=== PATIENT | female | born 1950 | race Hispanic/Latino ===

== ENCOUNTER 2017-11-03 15:07 | Inpatient (IN) | payer MEDICARE ==
--- NOTE | 2017-11-03 16:26 | CT ---
PROCEDURE: CT HEAD WITHOUT CONTRAST. HISTORY: head injury COMPARISON: None available. TECHNIQUE: Axial computed tomography images were obtained through the head/brain without intravenous contrast. Radiation dose: Total exam DLP = 884.2 mGy-cm. This CT exam was performed using one or more of the following dose reduction techniques: Automated exposure control, adjustment of the mA and/or kV according to patient size, and/or use of iterative reconstruction technique. FINDINGS: HEMORRHAGE: No intracranial hemorrhage. BRAIN: Nonspecific hypoattenuation involving the right basal ganglia. Chronic appearing left basal ganglia infarction. No atrophy or chronic microvascular ischemic changes. VENTRICLES: Unremarkable. No hydrocephalus. CALVARIUM: Unremarkable. PARANASAL SINUSES: Unremarkable as visualized. No significant inflammatory changes. MASTOID AIR CELLS: Unremarkable as visualized. No inflammatory changes. OTHER FINDINGS: None. IMPRESSION: Nonspecific hypoattenuation involving the right basal ganglia. Evolving ischemic changes can not be excluded. MRI of the brain can be obtained for further characterization as clinically warranted. Findings conveyed to CHULA Whipple by Dr. Eid at 4:23 p.m. on 11/03/2017.
--- NOTE | 2017-11-03 16:33 | CT ---
PROCEDURE: CT Cervical Spine without contrast HISTORY: Fall, trauma. COMPARISON: None available. TECHNIQUE: Axial computed tomography images were obtained of the cervical spine without the use of intravenous contrast. Coronal and sagittal reformatted images were created and reviewed. Radiation dose: Total exam DLP = go mGy-cm. This CT exam was performed using one or more of the following dose reduction techniques: Automated exposure control, adjustment of the mA and/or kV according to patient size, and/or use of iterative reconstruction technique. FINDINGS: VERTEBRAE: No fracture. Rotary scoliosis. No destructive bony lesion. DISCS/SPINAL CANAL/NEURAL FORAMINA: No significant central canal or neural foraminal stenosis. Discs heights are grossly preserved. Uncovertebral hypertrophy. PARASPINAL SOFT TISSUES: Unremarkable. OTHER FINDINGS: None. IMPRESSION: No acute findings related to/accounting for the clinical presentation.
--- NOTE | 2017-11-03 16:36 | ED PDOC ---
HPI:STROKE - Time Time: 16:34 - Historian Historian: Patient - Chief Complaint Chief Complaint: other (syncope) - Onset Date: 11/03/17 Time: 10:00 Onset: Hours (6) - Timing Timing: Improved - Context Context: Standing (Non-mechanical fall, ? syncope x 2 episodes today. Unkown LOC , pt does not recollect how she fell. Denies headache, chest pain or palpitations.) - Severity of pain Maximum severity:: Moderate Pain Scale:: 1 Severity Current: None Pain Scale:: 1 - Exacerbated by Exacerbated by:: Nothing - TPA Positive for Contraindication: Yes Reason tPA is not being Administered: Unkown onset of sxs NIHSS Stroke Scale - How Severe is the Stroke Level of Consciousness: 0=Alert LOC to Questions: 0=Both comments correct LOC to commands: 0=Obeys both correctly Best Gaze: 0=Normal Visual: 0=No visual loss Facial: 0=Normal Motor Arm - Left: 0=No drift Motor Arm - Right: 0=No drift Motor Leg - Left: 0=No drift Motor Leg - Right: 0=No drift Limb Ataxia: 0=Absent Sensory: 0=Normal Best Language: 0=No aphasia Dysarthia: 0=Normal articulation Extinction & Inattention (Neglect): 0=Normal, no object Score: 0 rTPA Inclusion/Exclusion - Refusal of Treatment Patient Refused Treatment: No - Inclusion Criteria for Altepase Patient is 18 years or Older: Yes The Clinical Diagnosis of Ischemic Stroke That is Causing a Potentially Disabling Neurological Deficit: No Time of Onset is Well Established to be Less Than 270 Minute Before Treatment Would Begin: No Risk/Benefit Discussed With Patient/Family Member Present: No Past Medical History Vital Signs: Last Vital Signs Temp 97.5 F L 11/03/17 15:08 Pulse 94 H 11/03/17 15:08 Resp 16 11/03/17 15:08 BP 149/75 11/03/17 15:08 Pulse Ox 98 11/03/17 15:08 - Medical History PMH: Malignancy (NonHodgkins lymphoma in remission, Myasthenia Gravis) - Family History Family History: States: Unknown Family Hx - Home Medications Home Medications: Ambulatory Orders Medication Instructions Recorded Azithromycin [Z-Eugene] 250 mg PO ASDIR 11/03/17 - Allergies Allergies/Adverse Reactions: Allergies Allergy/AdvReac Type Severity Reaction Status Date / Time Penicillins Allergy RASH Verified 11/03/17 15:12 Review of Systems ROS Statement: Except As Marked, All Systems Reviewed And Found Negative Neurological: Positive for: Other (Syncope) Physical Exam - Reviewed Nursing Documentation Reviewed: Yes Vital Signs Reviewed: Yes - Physical Exam Appears: Positive for: Non-toxic, No Acute Distress Head Exam: Positive for: ATRAUMATIC, NORMAL INSPECTION, NORMOCEPHALIC Skin: Positive for: Normal Color, Warm, DRY Eye Exam: Positive for: EOMI, Normal appearance, PERRL ENT: Positive for: Normal ENT Inspection Neck: Positive for: Normal, Painless ROM Cardiovascular/Chest: Positive for: Regular Rate, Rhythm Respiratory: Positive for: CNT, Normal Breath Sounds Gastrointestinal/Abdominal: Positive for: Normal Exam, Bowel Sounds, Soft Back: Positive for: Normal Inspection Extremity: Positive for: Normal ROM Neurologic/Psych: Positive for: Alert, Oriented. Negative for: Motor/Sensory Deficits - Laboratory Results Result Diagrams: 11/03/17 16:39 11/03/17 16:39 - ECG O2 Sat by Pulse Oximetry: 98 Disposition - Clinical Impression Clinical Impression: Syncope - Patient ED Disposition Is Patient to be Admitted: Yes - Disposition Disposition Time: 18:23 Condition: FAIR Forms: [facility] (Italian) - Pt Status Changed To: Hospital Disposition Of: Observation - POA Present On Arrival: None
--- NOTE | 2017-11-03 16:58 | CT ---
PROCEDURE: CT left hip HISTORY: L hip deformed sofia COMPARISON: None TECHNIQUE: 2.5 mm axial acquisition and display. Coronal and sagittal reconstructions. Dose report (mGy-cm): 716.26. Supplemental 3D volume rendering FINDINGS: There are no osseous abnormalities to suggest fracture. The pelvic ring is intact. Preserved femoral-acetabular relationship. Negative study for protrusio, subluxation or dislocation. Degenerative changes: Left hip, moderate. IMPRESSION: No significant or acute findings to account for/ related to the clinical presentation.
[2017-11-03 17:09] LABS: ALBUMIN 4.3 g/dL (3.5-5.0); ALT/SGPT 30 U/L (9-52); AST/SGOT 44 U/L (14-36); BLOOD UREA NITROGEN 20 mg/dl (7-17); CALCIUM 10.6 mg/dL (8.4-10.2); GFR AFRICAN-AMERICAN > 60; GFR NON-AFRICAN AMERICAN > 60
--- NOTE | 2017-11-03 17:18 | RAD ---
PROCEDURE: Radiographs of the left tibia and fibula. HISTORY: trauma COMPARISON: None available. TECHNIQUE: Frontal and lateral views obtained. FINDINGS: BONES: No fracture or destructive lesion. JOINT SPACES: Unremarkable. OTHER FINDINGS: None. IMPRESSION: Unremarkable radiographs of the left tibia and fibula.
--- NOTE | 2017-11-03 17:19 | RAD ---
PROCEDURE: Radiographs of the Left Shoulder HISTORY: trauma COMPARISON: No prior. FINDINGS: BONES: Generalized osteopenia. . No fracture. JOINTS: . Glenohumeral and acromioclavicular minimal osteoarthritis. SOFT TISSUES: Normal. OTHER FINDINGS: Sternal wires partly visualized IMPRESSION: No fracture or dislocation. Minimal osteoarthrosis.
[2017-11-03 17:21] LABS: BASO % 0.3 % (0.0-2.0); EOS % 0.1 % (0.0-4.0); HEMOGLOBIN 14.4 g/dL (12.0-16.0); LYMPH % 7.7 % (20.0-40.0); MEAN CORPUSCULAR HEMOGLOBIN 22.5 pg (27.0-31.0); MEAN CORPUSCULAR HGB CONC 31.7 g/dL (33.0-37.0); MEAN PLATELET VOLUME 8.4 fl (7.2-11.7); MONO # 0.7 K/uL (0.0-0.8); MONO % 5.4 % (0.0-10.0); NEUT # 11.3 K/uL (1.8-7.0); NEUT % 86.5 % (50.0-75.0); NRBC % 0.3 % (0.0-0.0); PLATELET COUNT 272 K/uL (130-400); RBC 6.38 Mil/uL (3.80-5.20); RED CELL DISTRIBUTION WIDTH 21.2 % (11.5-14.5); WHITE BLOOD COUNT 13.1 K/uL (4.8-10.8)
--- NOTE | 2017-11-03 17:21 | RAD ---
HISTORY: fall COMPARISON: No prior. FINDINGS: LUNGS: No active pulmonary disease. PLEURA: No significant pleural effusion identified, no pneumothorax apparent. CARDIOVASCULAR: Minimal cardiomegaly tortuous thoracic aorta top-normal central pulmonary vasculature OSSEOUS STRUCTURES: Minimal left shoulder arthrosis. Generalized osteopenia midline sternotomy wires. VISUALIZED UPPER ABDOMEN: Normal. OTHER FINDINGS: Right-sided Port-A-Cath tip in caval atrial junction IMPRESSION: Right Port-A-Cath insertion. Mild cardiomegaly. Midline sternotomy. Probable top-normal central pulmonary vasculature. Generalized osteopenia. No gross rib fracture. No pneumothorax.
--- NOTE | 2017-11-03 17:22 | RAD ---
PROCEDURE: Left Ankle Radiographs. HISTORY: trauma COMPARISON: None FINDINGS: BONES: Normal. No fracture. JOINTS: Normal. No osteoarthritis. Ankle mortise maintained. Talar dome intact SOFT TISSUES: Lateral perimalleolar soft tissue swelling OTHER FINDINGS: None. IMPRESSION: Lateral ankle soft tissue swelling. No fracture or dislocation noted
[2017-11-03] MEDS: Sodium Chloride 0.9% 1,000 ML IV SCH (18:42)
--- NOTE | 2017-11-03 18:54 | CP.PCM.HP ---
History of Present Illness - History of Present Illness History of Present Illness: CC: fall HPI: 67 year old female PMH Myasthenia Gravis, NonHodgkins Lymphoma s/p chemo, hx of URI for one week (neg CXR), presents to the ER today after 2 mechanical? falls, each time after attempting to open her cat food. The first episode 911 was called however she refused care, the second time she fell, neighbors responded. Patient states she did not lose consciousness prior to falling, and complains of some acute moderate sharp/aching pain in her knee and ankle. XRs in ER have all been negative. In ER pt found to have WBC 13k, it is unclear if pt has been having urinary symptoms. UA UCx pending. CT head showed possible evolving ischemia and MRI was completed, read pending. Patient did not exhibit any bulbar weakness, or respiratory symptoms/difficulty. No focal neuro deficits , AAOx3. Mild Azotemia. Neuro consulted. HD stable, NAD, observe overnight on telemetry. 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 Snyder PSH: Thymectomy FH: denies SH: denies tobacco, ETOH, IVDU NKDA Vitals Reviewed Temp Pulse Resp BP Pulse Ox 97.5 F L 94 H 16 149/75 98 11/03/17 15:08 11/03/17 15:08 11/03/17 15:08 11/03/17 15:08 11/03/17 18:24 GEN: WDWN, ALERT, COOPERATIVE HEENT: NCAT, PERRL, EOMI HEART: RRR, +S1S2, NO MRG LUNG: CTAB, NO WRR ABD: SOFT, NT, ND, NO HSM, NO MASSES EXT: NORMAL PEDAL PULSES, GOOD CAPILLARY REFILL NEURO: AAOX3, STRENGTH EQUAL BILATERAL UPPER AND LOWER EXTREMITIES SKIN: WARM, DRY PSYCH: NORMAL MOOD, NORMAL AFFECT LABS Most Recent Lab Values WBC 13.1 K/uL (4.8-10.8) H 11/03/17 16:39 RBC 6.38 Mil/uL (3.80-5.20) H 11/03/17 16:39 Hgb 14.4 g/dL (12.0-16.0) 11/03/17 16:39 Hct 45.3 % (34.0-47.0) 11/03/17 16:39 MCV 71.0 fl (81.0-99.0) L 11/03/17 16:39 MCH 22.5 pg (27.0-31.0) L 11/03/17 16:39 MCHC 31.7 g/dL (33.0-37.0) L 11/03/17 16:39 RDW 21.2 % (11.5-14.5) H 11/03/17 16:39 Plt Count 272 K/uL (130-400) 11/03/17 16:39 MPV 8.4 fl (7.2-11.7) 11/03/17 16:39 Neut % (Auto) 86.5 % (50.0-75.0) H 11/03/17 16:39 Lymph % (Auto) 7.7 % (20.0-40.0) L 11/03/17 16:39 [place] % (Auto) 5.4 % (0.0-10.0) 11/03/17 16:39 Eos % (Auto) 0.1 % (0.0-4.0) 11/03/17 16:39 Baso % (Auto) 0.3 % (0.0-2.0) 11/03/17 16:39 Neut # 11.3 K/uL (1.8-7.0) H 11/03/17 16:39 Lymph # 1.0 K/uL (1.0-4.3) 11/03/17 16:39 [place] # 0.7 K/uL (0.0-0.8) 11/03/17 16:39 Eos # 0.0 K/uL (0.0-0.7) 11/03/17 16:39 Baso # 0.0 K/uL (0.0-0.2) 11/03/17 16:39 Sodium 139 mmol/l (132-148) 11/03/17 16:39 Potassium 3.7 MMOL/L (3.6-5.0) 11/03/17 16:39 Chloride 104 mmol/L (98-107) 11/03/17 16:39 Carbon Dioxide 26 mmol/L (22-30) 11/03/17 16:39 Anion Gap 13 (10-20) 11/03/17 16:39 BUN 20 mg/dl (7-17) H 11/03/17 16:39 Creatinine 0.6 mg/dl (0.7-1.2) L 11/03/17 16:39 Est GFR ( Amer) > 60 11/03/17 16:39 Est GFR (Non-Af Amer) > 60 11/03/17 16:39 POC Glucose (mg/dL) 110 mg/dL (65-110) 11/03/17 16:40 Random Glucose 109 mg/dL (65-105) H 11/03/17 16:39 Calcium 10.6 mg/dL (8.4-10.2) H 11/03/17 16:39 Total Bilirubin 0.7 mg/dl (0.2-1.3) 11/03/17 16:39 AST 44 U/L (14-36) H 11/03/17 16:39 ALT 30 U/L (9-52) 11/03/17 16:39 Alkaline Phosphatase 89 U/L (38-126) 11/03/17 16:39 Total Creatine Kinase 262 U/L (30-135) H 11/03/17 16:39 Troponin I 0.0140 ng/mL (0.00-0.120) 11/03/17 16:39 Total Protein 8.8 G/DL (6.3-8.2) H 11/03/17 16:39 Albumin 4.3 g/dL (3.5-5.0) 11/03/17 16:39 Globulin 4.5 gm/dL (2.2-3.9) H 11/03/17 16:39 Albumin/Globulin Ratio 1.0 (1.0-2.1) 11/03/17 16:[address] Head: nonspecific hypoattenuation R basal ganglia CT CSpine: no fx CT Hip: no acute findings XR L Ankle: lateal soft tissue swelling XR L Shoulder: no fracture, minimal osteoarthrosis XR Tib/Fib: unremarkable ASSESSMENT AND PLAN 67 year old female PMH Myasthenia Gravis, NonHodgkins Lymphoma s/p chemo, hx of URI for one week (neg CXR), presents to the ER today after 2 mechanical? falls, each time after attempting to open her cat food. The first episode 911 was called however she refused care, the second time she fell, neighbors responded. Patient states she did not lose consciousness prior to falling, and complains of some acute moderate sharp/aching pain in her knee and ankle. XRs in ER have all been negative. In ER pt found to have WBC 13k, it is unclear if pt has been having urinary symptoms. UA UCx pending. CT head showed possible evolving ischemia and MRI was completed, read pending. Patient did not exhibit any bulbar weakness, or respiratory symptoms/difficulty. No focal neuro deficits, AAOx3. Mild Azotemia. Neuro consulted. HD stable, NAD, observe overnight on telemetry. Near Syncope Fall x2 while trying to open her cat food Orthostatic BP reads pending CT head showed possible evolving area of ischemia MRI read pending Echo tomorrow Carotid dopplers tomorrow repeat lytes monitor for worsening of symptoms Myasthenia Gravis Neuro consult for possible exacerbation? No bulbar weakness or respiratory symptoms Fall all imaging negative supportive care and pain control Leukocytosis pt had 1 week history of URI sx, was completing course of Azithromycin 3 days remaining checking urine as well, unclear if patient is symptomatic Azotemia BUN 20 NS @ 125cc/hr monitor VTE ppx Lovenox Present on Admission - Present on Admission Any Indicators Present on Admission: No Past Patient History - Past Social History Smoking Status: Never Smoked - HEMATOLOGICAL/ONCOLOGICAL Hx Blood Disorders: Yes - MUSCULOSKELETAL/RHEUMATOLOGICAL Hx Musculoskeletal Disorders: Yes Hx Myasthenia Gravis: Yes - PSYCHIATRIC Hx Substance Use: No - SURGICAL HISTORY Hx Surgeries: Yes Other/Comment: Right subclavian port for chemo. Meds Allergies/Adverse Reactions: Allergies Allergy/AdvReac Type Severity Reaction Status Date / Time Penicillins Allergy RASH Verified 11/03/17 15:12 Results - Vital Signs Recent Vital Signs: Last Vital Signs Temp 97.5 F L 11/03/17 15:08 Pulse 94 H 11/03/17 15:08 Resp 16 11/03/17 15:08 BP 149/75 11/03/17 15:08 Pulse Ox 98 11/03/17 16:40 - Labs Result Diagrams: 11/03/17 16:39 11/03/17 16:39 Labs: Laboratory Results - last 24 hr 12/11/03/17 11/03/17 16:39 16:39 16:40 WBC 13.1 H RBC 6.38 H Hgb 14.4 Hct 45.3 MCV 71.0 L MCH 22.5 L MCHC 31.7 L RDW 21.2 H Plt Count 272 MPV 8.4 Neut % (Auto) 86.5 H Lymph % (Auto) 7.7 L [place] % (Auto) 5.4 Eos % (Auto) 0.1 Baso % (Auto) 0.3 Neut # 11.3 H Lymph # 1.0 [place] # 0.7 Eos # 0.0 Baso # 0.0 Sodium 139 Potassium 3.7 Chloride 104 Carbon Dioxide 26 Anion Gap 13 BUN 20 H Creatinine 0.6 L Est GFR ( Amer) > 60 Est GFR (Non-Af Amer) > 60 POC Glucose (mg/dL) 110 Random Glucose 109 H Calcium 10.6 H Total Bilirubin 0.7 AST 44 H ALT 30 Alkaline Phosphatase 89 Total Creatine Kinase 262 H Troponin I 0.0140 Total Protein 8.8 H Albumin 4.3 Globulin 4.5 H Albumin/Globulin Ratio 1.0
[2017-11-03 19:08] LABS: BANDS 4 % (0-2); LYMPHOCYTE 7 % (20-50); MICROCYTOSIS SLIGHT; MONOCYTE 5 % (0-10); NEUTROPHIL 84 % (42-75); PLATELET ESTIMATE NORMAL (NORMAL); TOTAL CELLS COUNTED 100
[2017-11-03 19:09] LABS: HYPOCHROMIC SLIGHT; TOXIC GRANULATION PRESENT
--- NOTE | 2017-11-04 00:40 | CON ---
DATE: REASON FOR THE CONSULTATION: Frequent falls. CHIEF COMPLAINT: Patient was brought in to [facility] after frequent falls, with a history of significant myasthenia gravis and non-Hodgkin lymphoma. From neurological point of view, I was called in to evaluate her for further management. HISTORY OF PRESENT ILLNESS: Ms. Shirley Castillo is a 67-year-old right-handed female, presenting with 2 episodes of weakness and tend to fall on her left side. She also admitted some weakness and heaviness of her left leg from the fall. She did not lose her consciousness. No history of involuntary movements. No similar episodes happened in the past. PAST MEDICAL HISTORY: Significant for non-Hodgkin lymphoma being diagnosed in 2017, now is status post chemotherapy. History of myasthenia gravis, status post thymectomy in the past more than 19 years ago, not being on any medications at present. 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 PERSONAL HISTORY: Denies smoking or alcohol use. ALLERGIES: NO KNOWN ALLERGIES. REVIEW OF SYSTEMS: Twelve-point system being reviewed. From neuro, recurrent fall on her left side. PHYSICAL EXAMINATION: VITAL SIGNS: Her blood pressure is 132/75, mean arterial pressure 93, respiratory rate 16, temperature afebrile. NECK: Supple. No carotid bruit. HEART: Sounds regular. CHEST: Fair air entry. EXTREMITIES: No edema of legs. NEUROLOGIC: Mental status examination: She is awake, alert, oriented to person, place and time. Speech is clear. Naming, repetition, fluency, comprehension, are all within normal. Cranial nerve examination: Visual field intact. Pupils reactive to light. Extraocular movement normal. No nystagmus. No facial sensory deficit. No facial asymmetry. Hearing is normal. Tongue is midline. Good gag. Mild facial asymmetry noted on the left side. Motor examination: The patient has slight drift on her left upper extremity to compare with the right side. The patient also showed evidence of flexor deformity of the third, fourth, and fifth digits on both upper extremities with intrinsic muscle atrophy noted. Deep tendon reflexes, biceps, brachioradialis, triceps are 1+; both the knees are absent; both ankles are absent; plantars are upgoing on her left side. Coordination: [id number] test is intact. WORKUP: CT of the head showed diffusion-weighted image showed positive perfusion and diffusion mismatch at right basal ganglia. BLOOD WORKUP: WBC 13.1, hemoglobin 14.4, hematocrit 45.3, platelet 272. Sodium 139, potassium 5.7, chloride 104, bicarbonate 26, EGFR more than 60, random glucose 109. TSH 1.43, B12 of 369. CONCLUSION: Ms. Shirley Castillo has been presenting with recurrent episode of fall on her left side with weakness. On examination, showed Babinski sign on left side with mild drift on her left consistent with right subcortical dysfunction. The MRI finding consistent with basal ganglia infarct. The patient also had evidence of bilateral distal symmetric sensory motor neuropathy, which is superimposed with her inclusion body myositis which is preexisting condition. RECOMMENDATION: I would like her to continue aspirin and Plavix which was placed on, and continue hydration to keep mean arterial pressure of 100. The patient should keep DVT prophylaxis and physical therapy should be started. The patient will be followed closely with you. Jonathon Hogan MD
[2017-11-04] MEDS: Sodium Chloride 0.9% 1,000 ML IV SCH (05:58)
[2017-11-04 06:17] LABS: BASO % 0.3 % (0.0-2.0); EOS % 0.2 % (0.0-4.0); HEMOGLOBIN 14.4 g/dL (12.0-16.0); LYMPH # 1.4 K/uL (1.0-4.3); LYMPH % 15.9 % (20.0-40.0); MEAN CELL VOLUME 70.7 fl (81.0-99.0); MEAN CORPUSCULAR HGB CONC 32.5 g/dL (33.0-37.0); MEAN PLATELET VOLUME 8.3 fl (7.2-11.7); MONO # 0.7 K/uL (0.0-0.8); MONO % 7.8 % (0.0-10.0); NEUT # 6.6 K/uL (1.8-7.0); NEUT % 75.8 % (50.0-75.0); NRBC % 0.1 % (0.0-0.0); RBC 6.28 Mil/uL (3.80-5.20); RED CELL DISTRIBUTION WIDTH 20.9 % (11.5-14.5); WHITE BLOOD COUNT 8.7 K/uL (4.8-10.8)
[2017-11-04 06:42] LABS: BLOOD UREA NITROGEN 17 mg/dl (7-17); CALCIUM 10.3 mg/dL (8.4-10.2); GFR AFRICAN-AMERICAN > 60; GFR NON-AFRICAN AMERICAN > 60
--- NOTE | 2017-11-04 07:14 | MRI ---
PROCEDURE: MRI BRAIN WITHOUT CONTRAST HISTORY: syncope, ischemic changes on CT COMPARISON: None. TECHNIQUE: Multiplanar, multisequence MR images of the brain were obtained without intravenous contrast enhancement. FINDINGS: HEMORRHAGE: None DWI: Restricted diffusion is seen the majority of the right basal ganglia compatible with an acute or subacute brain infarction. A limited portion of the inferior basal ganglia appears spared. There is no significant mass effect appreciated though there may be some minimal effacement of the right lateral ventricle body. No additional acute or subacute ischemic changes are appreciated. A chronic lacune is seen at the left basal ganglia. BRAIN PARENCHYMA: Diffuse cerebral atrophy and chronic microangiopathy are identified once again. The midline brain anatomy is unremarkable diffusely. There is no suspicious extra-axial fluid collection identified. Exclusive of the acute or subacute infarction noted above, the corticomedullary differentiation remains sharp. VENTRICLES: No hydrocephalus identified. CRANIUM: Limited dephasing is seen caused by a ferromagnetic anteriorly at the anterior and mid left temporal scalp obscuring the calvarium somewhat of the left church bone. No suspicious densities appreciated in the CT examination the same location however there is no evidence of brian hole throughout the skull the current MRI or the prior CT exam. ORBITS: Grossly unremarkable. PARANASAL SINUSES/MASTOIDS: Clear VASCULAR SYSTEM: Skull base flow voids intact. OTHER FINDINGS: Incidental note is made abnormal soft tissue measuring 3.5 x 3.0 cm (transverse by anteroposterior dimensions) at the left occipital scalp inferiorly/ upper neck suspicious for potential abscess or even mass. IMPRESSION: 1. An acute subacute infarct affects the right basal ganglia with limited sparing of the inferior margins of the basal ganglia. No generalized mass effect although limited effacement of the body of the right lateral ventricle may be present. 2. Chronic lacune left basal ganglia again evident. 3. No definite intracranial hemorrhage. 4. Abnormal signal changes at the left occipital/upper neck region measuring 3.5 cm greatest dimension suspicious for potential abscess or even mass. Follow-up neck CT with and without contrast is recommended
[2017-11-04] MEDS ORDERED: Enoxaparin 40 mg Syringe SC SCH (09:00)
[2017-11-04 09:12] VITALS: RESP 20
--- NOTE | 2017-11-04 09:19 | US ---
PROCEDURE: Duplex ultrasound of the carotid and vertebral arteries. HISTORY: near syncope COMPARISON: None available. TECHNIQUE: Grayscale and duplex Doppler evaluation of the cervical carotid and vertebral arteries were performed. The common carotid, carotid bifurcations and cervical ICA and proximal ECA were evaluated. The vertebral arteries were evaluated for gross patency and direction. FINDINGS: RIGHT CAROTID ARTERIES: Common Carotid Artery: Normal. Maximal flow velocity of 101.1 cm/s. Carotid Bifurcation: Focal calcified plaque in the vicinity of the and bifurcation. Internal Carotid Artery:Heterogeneous plaque formation. Maximal flow velocity of 96.3 cm/s. External Carotid Artery (proximal branches): Normal. Maximal flow velocity of 114.0 cm/s. ICA/CCA Ratio: 1.0 LEFT CAROTID ARTERIES: Common Carotid Artery: Intimal thickening is present Maximal flow velocity of 143.1 cm/s. Carotid Bifurcation: Plaque identified calcified bifurcation extending into the left ECA and ICA Internal Carotid Artery:Heterogeneous plaque formation. Maximal flow velocity of 84.9 cm/s. External Carotid Artery (proximal branches): Normal. Maximal flow velocity of 94.3 cm/s. ICA/CCA Ratio: 0.8 VERTEBRAL ARTERIES: Right Vertebral Artery: Patent. Antegrade flow. Left Vertebral Artery: Patent. Antegrade flow. OTHER FINDINGS: None. IMPRESSION: Right ICA degree of stenosis: Less than 50% Left ICA degree of stenosis: Less than 50% Reference Internal Carotid Artery (ICA) Peak Systolic Velocity (PSV) for above: 1. Less than 50% stenosis less than 125 cm/s peak systolic velocity 2. 50-69% stenosis 125-230cm/s peak systolic velocity 3. Greater than 70% but less than near occlusion greater than 230 cm/s peak systolic velocity
--- NOTE | 2017-11-04 09:25 | CARD ---
APPROVED REPORT EKG Measurement Heart [id number] <Conclusion> Normal sinus rhythm Right atrial enlargement Nonspecific ST abnormality Abnormal ECG
[2017-11-04 11:11] LABS: HDL CHOLESTEROL 50 MG/DL (30-70)
[2017-11-04 11:21] LABS: LDL CHOLESTEROL 167 mg/dL (0-129)
[2017-11-04 12:34] LABS: SQUAMOUS EPITHIAL 2 /hpf (0-5); URINE BILIRUBIN NEGATIVE (NEGATIVE); URINE BLOOD NEGATIVE (NEGATIVE); URINE CLARITY CLOUDY (Clear); URINE COLOR YELLOW (YELLOW); URINE GLUCOSE (UA) NEG (Normal); URINE LEUKOCYTE ESTERASE SMALL Leu/uL (Negative); URINE NITRATE NEGATIVE (NEGATIVE); URINE PROTEIN 100 mg/dL (NEGATIVE); URINE UROBILINOGEN 0.2-1.0 mg/dL (0.2-1.0)
--- NOTE | 2017-11-04 12:57 | CARD ---
APPROVED REPORT EXAM: Two-dimensional and M-mode echocardiogram with Doppler and color Doppler. Other Information Quality : AverageRhythm : NSR INDICATION Syncope 2D DIMENSIONS IVSd1.16 (0.7-1.1cm)LVDd3.42 (3.9-5.9cm) LVOT Diameter2.90 (1.8-2.4cm)PWd1.34 (0.7-1.1cm) IVSs1.32 (0.8-1.2cm)LVDs2.24 (2.5-4.0cm) FS (%) 34.7 %PWs1.35 (0.8-1.2cm) M-Mode DIMENSIONS Left Atrium (MM)3.97 (2.5-4.0cm)IVSd1.65 (0.7-1.1cm) Aortic Root3.24 (2.2-3.7cm)LVDd3.18 (4.0-5.6cm) Aortic Cusp Exc.1.99 (1.5-2.0cm)PWd1.29 (0.7-1.1cm) IVSs1.65 cmFS (%) 31 % LVDs2.18 (2.0-3.8cm)PWs1.69 cm Mitral Valve MV E Vaepkmcb29.5cm/sMV DECEL [id number] A Kzkoaqgz90.5cm/s MV NSU235mdV/A ratio0.8MVA (PHT)2.02cm2 TDI E/Lateral E'0.0E/Medial E'0.0 LEFT VENTRICLE The left ventricle is normal size. The left ventricular function is normal. The left ventricular ejection fraction is within the normal range. The Ejection Fraction is 60-65%. There is normal LV segmental wall motion. The left ventricular diastolic function is normal. RIGHT VENTRICLE The right ventricle is normal size. The right ventricular systolic function is normal. ATRIA The left atrium size is normal. The right atrium size is normal. AORTIC VALVE The aortic valve is normal in structure. No aortic regurgitation is present. There is no aortic valvular stenosis. MITRAL VALVE The mitral valve is normal in structure. There is no mitral valve stenosis. There is no mitral valve regurgitation noted. TRICUSPID VALVE The tricuspid valve is normal in structure. There is no tricuspid valve regurgitation noted. PULMONIC VALVE The pulmonary valve is normal in structure. There is no pulmonic valvular regurgitation. GREAT VESSELS The aortic root is normal in size. The IVC is normal in size and collapses >50% with inspiration. PERICARDIAL EFFUSION The pericardium appears normal. <Conclusion> The left ventricle is normal size. The left ventricular function is normal. The left ventricular ejection fraction is within the normal range. The Ejection Fraction is 60-65%.
[2017-11-04] MEDS ORDERED: Sodium Chloride 0.9% 1,000 ML IV SCH (13:00)
[2017-11-04] MEDS ORDERED: Sodium Chloride 0.9% 50 ML IV ONE (13:02)
[2017-11-04] MEDS ORDERED: Iodixanol 320 MG/ML 100 ML BOTTLE IV ONE (13:02)
--- NOTE | 2017-11-04 15:20 | CT ---
PROCEDURE: CT Angiography of the neck and brain dated 11/04/2017. HISTORY: CVA COMPARISON: Correlation made with carotid Doppler and MRI brain both dated 11/03/2017. TECHNIQUE: Contiguous helical/transaxial images of the neck were obtained from the level of the skull-base to the superior mediastinum in the arteriographic phase of enhancement. Coronal and sagittal reformats or also generated. IV contrast dose: 99 cc Visipaque 320 Radiation Dose - DLP: 574.04 mGy-cm This CT exam was performed using one or more of the following dose reduction techniques: Automated exposure control, adjustment of the mA and/or kV according to patient size, and/or use of iterative reconstruction technique. . FINDINGS: CAROTID ARTERIES: Minor partially calcified atherosclerotic plaque seen along the carotid bifurcation with no evidence to suggest significant stenosis. . Marked tortuosity right distal internal carotid artery just before it enters the right petrous canal. Minor partially calcified atherosclerotic plaque seen along both carotid siphons. The VERTEBRAL ARTERIES: The vertebral arteries are patent throughout. Right vertebral artery is larger in caliber/ more dominant than the left. . Basilar artery is patent. There is hypoplasia of the left P1 segment with carotid origin of the left posterior cerebral artery. OTHER FINDINGS: Elliptical shaped soft tissue mass density left suboccipital scalp with surrounding mild subcutaneous infiltration; of uncertain etiology rule out post inflammatory/infectious etiologies. Mass lesion would be less likely though not completely excluded. Multiple bilateral cervical lymph nodes more numerous in the left posterior cervical spaces near the adjacent soft tissue. Minor calcified plaque seen along the aortic arch. Three-vessel arch however the origins of the great vessels are widely patent. IMPRESSION: No significant stenosis of the internal carotid arteries despite some very minor partially calcified atherosclerotic plaque at both bifurcations. Fairly significant tortuosity distal right internal carotid artery as above. Elliptical shaped soft tissue mass density left suboccipital scalp with surrounding mild subcutaneous infiltration; of uncertain etiology rule out post inflammatory/infectious etiologies. Mass lesion would be less likely though not completely excluded. Multiple bilateral cervical lymph nodes more numerous in the left posterior cervical spaces near the adjacent soft tissue
--- NOTE | 2017-11-04 16:32 | CP.PCM.DIS ---
Provider - Provider Date of Admission: 11/04/17 10:57 Attending physician: Pau Hubbard DO Time Spent in preparation of Discharge (in minutes): 30 Diagnosis - Discharge Diagnosis (1) CVA (cerebral vascular accident) Status: Acute Hospital Course - Lab Results Lab Results: Most Recent Lab Values WBC 8.7 K/uL (4.8-10.8) 11/04/17 04:40 RBC 6.28 Mil/uL (3.80-5.20) H 11/04/17 04:40 Hgb 14.4 g/dL (12.0-16.0) 11/04/17 04:40 Hct 44.4 % (34.0-47.0) 11/04/17 04:40 MCV 70.7 fl (81.0-99.0) L 11/04/17 04:40 MCH 23.0 pg (27.0-31.0) L 11/04/17 04:40 MCHC 32.5 g/dL (33.0-37.0) L 11/04/17 04:40 RDW 20.9 % (11.5-14.5) H 11/04/17 04:40 Plt Count 262 K/uL (130-400) 11/04/17 04:40 MPV 8.3 fl (7.2-11.7) 11/04/17 04:40 Neut % (Auto) 75.8 % (50.0-75.0) H 11/04/17 04:40 Lymph % (Auto) 15.9 % (20.0-40.0) L 11/04/17 04:40 [place] % (Auto) 7.8 % (0.0-10.0) 11/04/17 04:40 Eos % (Auto) 0.2 % (0.0-4.0) 11/04/17 04:40 Baso % (Auto) 0.3 % (0.0-2.0) 11/04/17 04:40 Neut # 6.6 K/uL (1.8-7.0) 11/04/17 04:40 Lymph # 1.4 K/uL (1.0-4.3) 11/04/17 04:40 [place] # 0.7 K/uL (0.0-0.8) 11/04/17 04:40 Eos # 0.0 K/uL (0.0-0.7) 11/04/17 04:40 Baso # 0.0 K/uL (0.0-0.2) 11/04/17 04:40 Neutrophils % (Manual) 84 % (42-75) H 11/03/17 16:39 Band Neutrophils % 4 % (0-2) H 11/03/17 16:39 Lymphocytes % (Manual) 7 % (20-50) L 11/03/17 16:39 Monocytes % (Manual) 5 % (0-10) 11/03/17 16:39 Toxic Granulation Present 11/03/17 16:39 Platelet Estimate Normal (NORMAL) 11/03/17 16:39 Hypochromasia (manual) Slight 11/03/17 16:39 Microcytosis (manual) Slight 11/03/17 16:39 ESR 51 mm/hr (0-30) H 11/03/17 19:40 Sodium 140 mmol/l (132-148) 11/04/17 04:40 Potassium 3.6 MMOL/L (3.6-5.0) 11/04/17 04:40 Chloride 105 mmol/L (98-107) 11/04/17 04:40 Carbon Dioxide 26 mmol/L (22-30) 11/04/17 04:40 Anion Gap 13 (10-20) 11/04/17 04:40 BUN 17 mg/dl (7-17) 11/04/17 04:40 Creatinine 0.6 mg/dl (0.7-1.2) L 11/04/17 04:40 Est GFR ( Amer) > 60 11/04/17 04:40 Est GFR (Non-Af Amer) > 60 11/04/17 04:40 POC Glucose (mg/dL) 110 mg/dL (65-110) 11/03/17 16:40 Random Glucose 117 mg/dL (65-105) H 11/04/17 04:40 Hemoglobin A1c 6.6 % (4.2-6.5) H 11/03/17 19:40 Calcium 10.3 mg/dL (8.4-10.2) H 11/04/17 04:40 Total Bilirubin 0.7 mg/dl (0.2-1.3) 11/03/17 16:39 AST 44 U/L (14-36) H 11/03/17 16:39 ALT 30 U/L (9-52) 11/03/17 16:39 Alkaline Phosphatase 89 U/L (38-126) 11/03/17 16:39 Total Creatine Kinase 262 U/L (30-135) H 11/03/17 16:39 Troponin I 0.0140 ng/mL (0.00-0.120) 11/03/17 16:39 Total Protein 8.8 G/DL (6.3-8.2) H 11/03/17 16:39 Albumin 4.3 g/dL (3.5-5.0) 11/03/17 16:39 Globulin 4.5 gm/dL (2.2-3.9) H 11/03/17 16:39 Albumin/Globulin Ratio 1.0 (1.0-2.1) 11/03/17 16:39 Triglycerides 86 mg/DL (0-149) 11/04/17 10:57 Cholesterol 263 mg/dL (0-199) H 11/04/17 10:57 LDL Cholesterol Direct 167 mg/dL (0-129) H 11/04/17 10:57 HDL Cholesterol 50 MG/DL (30-70) 11/04/17 10:57 Vitamin B12 369 pg/mL (239-931) 11/03/17 19:40 TSH 3rd Generation 1.43 mIU/ML (0.46-4.68) 11/03/17 19:40 Urine Color Yellow (YELLOW) 11/04/17 10:00 Urine Clarity Cloudy (Clear) 11/04/17 10:00 Urine pH 5.0 (5.0-8.0) 11/04/17 10:00 Ur Specific [place] 1.023 (1.003-1.030) 11/04/17 10:00 Urine Protein 100 mg/dL (NEGATIVE) 11/04/17 10:00 Urine Glucose (UA) Neg mg/dL (Normal) 11/04/17 10:00 Urine Ketones 20 mg/dL (NEGATIVE) 11/04/17 10:00 Urine Blood Negative (NEGATIVE) 11/04/17 10:00 Urine Nitrate Negative (NEGATIVE) 11/04/17 10:00 Urine Bilirubin Negative (NEGATIVE) 11/04/17 10:00 Urine Urobilinogen 0.2-1.0 mg/dL (0.2-1.0) 11/04/17 10:00 Ur Leukocyte Esterase Small [place]/uL (Negative) 11/04/17 10:00 Urine RBC (Auto) 4 /hpf (0-3) H 11/04/17 10:00 Urine Microscopic WBC 41 /hpf (0-5) H 11/04/17 10:00 Ur Squamous Epith Cells 2 /hpf (0-5) 11/04/17 10:00 Hyaline Casts 6-10 /hpf (0-2) H 11/04/17 10:00 - Hospital Course Hospital Course: 67 year old female PMH Myasthenia Gravis, NonHodgkins Lymphoma s/p chemo, hx of URI for one week (neg CXR), presents to the ER today after 2 mechanical? falls, each time after attempting to open her cat food. The first episode 911 was called however she refused care, the second time she fell, neighbors responded. Patient states she did not lose consciousness prior to falling, and complains of some acute moderate sharp/aching pain in her knee and ankle. XRs in ER have all been negative. In ER pt found to have WBC 13k, it is unclear if pt has been having urinary symptoms. UA UCx pending. CT head showed possible evolving ischemia and MRI was completed, read pending. Patient did not exhibit any bulbar weakness, or respiratory symptoms/difficulty. No focal neuro deficits, AAOx3. Mild Azotemia. Neuro consulted. HD stable, NAD, observe overnight on telemetry. MRI demonstrated basal ganglia acute/subacute infarct. Pt seen by PT and recommends physical therapy. Follow up ucx and Dr. Hogan for consult in TCU. Pt stable for discharge for further rehab needs. To note: incidental soft tissue mass/density noted on CT and MRI. Physical examination did not show any tenderness, swelling, erythema, or palpable mass. May follow up as outpatient with Dermatology. CVA Basal ganglia Near Syncope Fall x2 while trying to open her cat food Neuro consult Dr. Hogan appreciated and followed. ASA, PLAVIX, STATIN Orthostatic BP reads pending CT head showed possible evolving area of ischemia MRI read +basal ganglia acute/subacute CVA Echo complete Carotid dopplers complete repeat lytes monitor for worsening of symptoms Myasthenia Gravis Neuro consult for possible exacerbation? No bulbar weakness or respiratory symptoms Fall all imaging negative supportive care and pain control Leukocytosis with bands 4 resolved today pt had 1 week history of URI sx, was completing course of Azithromycin 3 days remaining checking urine as well, unclear if patient is symptomatic Azotemia BUN 20 NS @ 125cc/hr monitor UTI Macrobid BID for 6 more days STOP NOV 10, 2017. UCx pending VTE ppx Lovenox Discharge Exam - Head Exam Head Exam: ATRAUMATIC, NORMAL INSPECTION, NORMOCEPHALIC - Eye Exam Eye Exam: EOMI, Normal appearance, PERRL Pupil Exam: NORMAL ACCOMODATION - ENT Exam ENT Exam: Mucous Membranes Moist, Normal Oropharynx - Neck Exam Neck exam: Full Rom, Normal Inspection - Respiratory Exam Respiratory Exam: Clear to PA & Lateral, NORMAL BREATHING PATTERN - Cardiovascular Exam Cardiovascular Exam: RRR, +S1, +S2 - GI/Abdominal Exam GI & Abdominal Exam: Normal Bowel Sounds. absent: Organomegaly, Tenderness - Extremities Exam Extremities exam: normal capillary refill, pedal pulses present - Back Exam Back exam: absent: CVA tenderness (L), CVA tenderness (R) - Neurological Exam Neurological exam: Alert, Oriented x3 - Psychiatric Exam Psychiatric exam: Normal Affect, Normal Mood - Skin Skin Exam: Dry, Normal Color, Warm Discharge Plan - Follow Up Plan Condition: FAIR Disposition: TRANSF TO SNF
[2017-11-04 19:38] VITALS: BP 146/84; PULSE 88; TEMP 98.1; O2SAT 93
--- NOTE | 2017-11-04 23:38 | PN ---
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 PHYSICAL EXAMINATION: VITAL SIGNS: Blood pressure 146/84, mean arterial pressure 104, respiratory rate 16, temperature afebrile. NECK: Supple. No carotid bruit. HEART: Heart sounds regular. CHEST: Fair air entry. EXTREMITIES: No edema of legs. NEUROLOGIC: The patient has mild left hemiparesis, mild dysmetria on the left side noted. Deep tendon reflexes are absent throughout. Plantars are upgoing on her left side. WORKUP: Carotid Doppler sonogram shows stenosis less than 50%. CT angiogram was reviewed. No significant stenosis. The patient is cleared from neuro to have acute rehabilitation to improve her weakness. The patient is advised to continue antiplatelets, statin and angiotensin receptor blockers as recommended. Jonathon Hogan MD
== END 2017-11-04 21:20 | DRG 65 ==
LOC: H.ER 15:07 → H.ERHOLD 18:21 → H.TEL 21:34 → OBSVTOIN 11-04 10:57
PROVIDERS: ADMIT Student in an Organized Health Care Education/Training Program; ATTEND Student in an Organized Health Care Education/Training Program
DX: I63.9 Cerebral infarction, unspecified (principal); G81.94 Hemiplegia, unspecified affecting left nondominant side; G70.00 Myasthenia gravis without (acute) exacerbation; G72.41 Inclusion body myositis [IBM]; G62.9 Polyneuropathy, unspecified; N39.0 Urinary tract infection, site not specified; Z88.0 Allergy status to penicillin; Z85.72 Personal history of non-Hodgkin lymphomas; Z92.21 Personal history of antineoplastic chemotherapy; R29.6 Repeated falls; R79.89 Other specified abnormal findings of blood chemistry; R27.8 Other lack of coordination

== ENCOUNTER 2017-11-04 22:07 | Inpatient (IN) | payer MEDICARE ==
[2017-11-04 22:17] VITALS: BMI 31.2
[2017-11-05] MEDS: Enoxaparin 40 mg Syringe SC SCH (09:00)
[2017-11-05 12:01] VITALS: RESP 20
--- NOTE | 2017-11-05 14:41 | CP.PCM.HP ---
History of Present Illness - History of Present Illness History of Present Illness: CC: Mechanical falls 67 year old female PMH Myasthenia Gravis, Non Hodgkins Lymphoma s/p chemo, hx of URI for one week (neg CXR), presents to the ER on 11/03/2017 after 2 mechanical falls, each time after attempting to open her cat food. The first episode 911 was called however she refused care, the second time she fell, neighbors responded. Patient states she did not lose consciousness prior to falling, and complains of some acute moderate sharp/aching pain in her knee and ankle. XRs in ER have all been negative. In ER pt found to have WBC 13k, UA- some hyaline casts but no evidence of UTI. UCx pending. CT head showed possible evolving ischemia and MRI was completed, showing right basal ganglia infarct. Patient did not exhibit any bulbar weakness, or respiratory symptoms/ difficulty. No focal neuro deficits, AAOx3. Mild Azotemia. Neuro consulted, Dr. Hogan. HD stable. The patient was observed overnight on telemetry without changes. On 11/04, MRI demonstrated basal ganglia acute/subacute infarct. Pt seen by PT and recommends physical therapy. The patient was discharged to TCU for further PT/OT and for further workup by Dr. Hogan, neurology. To note: incidental soft tissue mass/density noted on CT and MRI. Physical examination did not show any tenderness, swelling, erythema, or palpable mass. May follow up as outpatient with Dermatology. Present on Admission - Present on Admission Any Indicators Present on Admission: No Review of Systems - Review of Systems All systems: reviewed and no additional remarkable complaints except (what was dictated in HPI.) Past Patient History - Infectious Disease Hx of Infectious Diseases: None - Past Medical History & Family History Past Medical History?: Yes - Past Social History Smoking Status: Former Smoker - CARDIAC Hx Cardiac Disorders: No - PULMONARY Hx Respiratory Disorders: No - NEUROLOGICAL Hx Neurological Disorder: No HX Cerebrovascular Accident: Yes (recent) Hx Syncope: Yes - HEENT Hx HEENT Problems: No Other/Comment: wears eyeglass - RENAL Hx Chronic Kidney Disease: No - ENDOCRINE/METABOLIC Hx Endocrine Disorders: No - HEMATOLOGICAL/ONCOLOGICAL Hx Blood Disorders: Yes Hx AIDS: No Hx Human Immunodeficiency Virus (HIV): No Other/Comment: non hodgkin's lymphoma - INTEGUMENTARY Hx Dermatological Problems: No - MUSCULOSKELETAL/RHEUMATOLOGICAL Hx Musculoskeletal Disorders: Yes Hx Falls: Yes (fell 2x) Hx Myasthenia Gravis: Yes - GASTROINTESTINAL Hx Gastrointestinal Disorders: No - GENITOURINARY/GYNECOLOGICAL Hx Genitourinary Disorders: No - PSYCHIATRIC Hx Psychophysiologic Disorder: No Hx Substance Use: No - SURGICAL HISTORY Hx Surgeries: Yes Other/Comment: Right subclavian port for chemo. Thymus surgery - ANESTHESIA Hx Anesthesia: Yes Hx Anesthesia Reactions: No Hx Malignant Hyperthermia: No Meds Allergies/Adverse Reactions: Allergies Allergy/AdvReac Type Severity Reaction Status Date / Time Penicillins Allergy RASH Verified 11/03/17 15:12 Physical Exam - Additional Findings Additional findings: Physical exam: Constitutional- cooperative, awake, confused at times but responds appropriately to questions Head- NCAT, PERRL Eye- PERRL, EOMI ENT- normal exam, MMM. Neck- normal inspection, supple, no JVD Respiratory- CTAB, no wheezes rales rhonchi Cardiovascular- RRR, +S1, +S2 no MRG GI/Abdominal- normal bowel sounds, soft, no mass, no hsm Skin- warm, dry Extremities Exam- normal capillary refill, normal inspection Neurological Exam- alert, awake, oriented Psych- normal mood, normal affect Results - Vital Signs Recent Vital Signs: Last Vital Signs Temp 98.4 F 11/05/17 06:02 Pulse 64 11/05/17 08:59 Resp 18 11/05/17 06:02 BP 121/64 11/05/17 08:59 Pulse Ox 98 11/05/17 06:02 Assessment & Plan - Assessment and Plan (Free Text) Plan: CVA Basal ganglia Near Syncope Fall x2 while trying to open her cat food Neuro consult Dr. Hogan appreciated and followed. ASA, PLAVIX, STATIN Orthostatic BP reads pending CT head showed possible evolving area of ischemia MRI read +basal ganglia acute/subacute CVA Echo complete Carotid dopplers complete repeat lytes monitor for worsening of symptoms Myasthenia Gravis Neuro consult for possible exacerbation? No bulbar weakness or respiratory symptoms Fall all imaging negative supportive care and pain control Leukocytosis with bands 4 resolved today pt had 1 week history of URI sx, was completing course of Azithromycin 3 days remaining checking urine as well, unclear if patient is symptomatic Azotemia BUN 20 NS @ 125cc/hr monitor UTI Macrobid BID for 6 more days STOP NOV 10, 2017. UCx pending VTE ppx Lovenox
[2017-11-06] MEDS: Enoxaparin 40 mg Syringe SC SCH (08:49)
[2017-11-07] MEDS: Enoxaparin 40 mg Syringe SC SCH (09:17)
[2017-11-08] MEDS: Enoxaparin 40 mg Syringe SC SCH (08:59)
--- NOTE | 2017-11-08 14:18 | CP.PCM.PN ---
Subjective - Date & Time of Evaluation Date of Evaluation: 11/08/17 Time of Evaluation: 14:17 - Subjective Subjective: no new complaints doing well Objective - Vital Signs/Intake and Output Vital Signs (last 24 hours): Temp Pulse Resp BP Pulse Ox 97.5 F L 84 20 142/70 99 11/08/17 07:45 11/08/17 09:00 11/08/17 07:45 11/08/17 09:00 11/08/17 07:45 - Medications Medications: Current Medications Acetaminophen (Tylenol 325mg Tab) 650 mg PO Q4 PRN PRN Reason: Headache Last Admin: 11/05/17 18:33 Dose: 650 mg Aspirin (Ecotrin) 81 mg PO DAILY [facility] Last Admin: 11/08/17 08:59 Dose: 81 mg Atorvastatin Calcium (Lipitor) 20 mg PO DAILY [facility] Last Admin: 11/08/17 09:00 Dose: 20 mg Clopidogrel Bisulfate (Plavix) 75 mg PO DAILY [facility] Last Admin: 11/08/17 08:59 Dose: 75 mg Enoxaparin Sodium (Lovenox) 40 mg SC DAILY [facility] PRN Reason: Protocol Last Admin: 11/08/17 08:59 Dose: 40 mg Ibuprofen (Motrin Tab) 600 mg PO Q6 PRN PRN Reason: Pain, Mild (1-3) Last Admin: 11/08/17 08:59 Dose: 600 mg Metoprolol Tartrate (Lopressor) 25 mg PO Q12 [facility] Last Admin: 11/08/17 09:00 Dose: 25 mg Nitrofurantoin Macrocrystals (Macrobid) 100 mg PO Q12 [facility] Last Admin: 11/08/17 08:59 Dose: 100 mg - Constitutional Appears: Well, Non-toxic, No Acute Distress - Head Exam Head Exam: ATRAUMATIC, NORMAL INSPECTION, NORMOCEPHALIC - Respiratory Exam Respiratory Exam: Clear to Ausculation Bilateral - Cardiovascular Exam Cardiovascular Exam: REGULAR RHYTHM, +S1, +S2 - GI/Abdominal Exam GI & Abdominal Exam: Soft, Normal Bowel Sounds. absent: Tenderness - Neurological Exam Neurological Exam: Alert, Awake, Oriented x3 Assessment and Plan - Assessment and Plan (Free Text) Assessment: CVA acute/subacute Basal ganglia Near Syncope Fall x2 while trying to open her cat food Neuro consult Dr. Hogan appreciated and followed. ASA, PLAVIX, STATIN Orthostatic BP reads pending CT head showed possible evolving area of ischemia MRI read +basal ganglia acute/subacute CVA Echo complete Carotid dopplers complete repeat lytes monitor for worsening of symptoms Myasthenia Gravis Neuro consult for possible exacerbation? No bulbar weakness or respiratory symptoms Fall all imaging negative supportive care and pain control Leukocytosis with bands 4 resolved today pt had 1 week history of URI sx, was completing course of Azithromycin 3 days remaining checking urine as well, unclear if patient is symptomatic Azotemia BUN 20 NS @ 125cc/hr monitor UTI Macrobid BID for 6 more days STOP NOV 10, 2017. UCx pending VTE ppx Lovenox
[2017-11-09] MEDS: Enoxaparin 40 mg Syringe SC SCH (08:18)
--- NOTE | 2017-11-09 14:51 | CP.PCM.DIS ---
Provider - Provider Date of Admission: 11/04/17 22:17 Attending physician: Júnior Rodriguez Time Spent in preparation of Discharge (in minutes): 35 Hospital Course - Lab Results Lab Results: Most Recent Lab Values POC Glucose (mg/dL) 130 mg/dL (65-110) H 11/05/17 11:39 - Hospital Course Hospital Course: CVA acute/subacute Basal ganglia Near Syncope Fall x2 while trying to open her cat food Neuro consult Dr. Hogan appreciated and followed. ASA, PLAVIX, STATIN Orthostatic BP reads pending CT head showed possible evolving area of ischemia MRI read +basal ganglia acute/subacute CVA Echo complete Carotid dopplers complete repeat lytes monitor for worsening of symptoms Myasthenia Gravis Neuro consult for possible exacerbation? No bulbar weakness or respiratory symptoms Fall all imaging negative supportive care and pain control Leukocytosis with bands 4 resolved today pt had 1 week history of URI sx, was completing course of Azithromycin 3 days remaining checking urine as well, unclear if patient is symptomatic Azotemia BUN 20 NS @ 125cc/hr monitor UTI Macrobid BID for 6 more days STOP NOV 10, 2017. UCx pending VTE ppx Lovenox Spoke with Son Omar over phone updated him re mother neg culture on urine on macrobid neg fractures on left side 2 soft bm but no complaints of diarrhea at present by patient Omar [phone] please call him on Discharge Exam - Head Exam Head Exam: ATRAUMATIC, NORMAL INSPECTION, NORMOCEPHALIC - Eye Exam Eye Exam: Normal appearance - Respiratory Exam Respiratory Exam: Clear to PA & Lateral - Cardiovascular Exam Cardiovascular Exam: REGULAR RHYTHM, +S1, +S2 - GI/Abdominal Exam GI & Abdominal Exam: Normal Bowel Sounds, Soft. absent: Tenderness - Neurological Exam Neurological exam: Alert, Oriented x3 Discharge Plan - Follow Up Plan Condition: GOOD Disposition: Trans to Other Acute Care Hosp Referrals: Sammy Suarez MD [Family Provider] -
[2017-11-09 17:49] VITALS: BP 108/62; PULSE 63; TEMP 97.5; O2SAT 97
[2017-11-09] MEDS ORDERED: Oxycodone/Acetaminophen 5/325 mg Tab PO SCH (22:00)
== END 2017-11-09 18:00 | DRG 57 ==
LOC: H.TCU 22:17
PROVIDERS: ADMIT Internal Medicine; ATTEND Internal Medicine
PROC: F07Z9FZ Gait Training/Functional Ambulation Treatment using Assistive, Adaptive, Supportive or Protective Equipment (ICD-10-PCS; principal; 2017-11-04)
PROC: F08Z2FZ Grooming/Personal Hygiene Treatment using Assistive, Adaptive, Supportive or Protective Equipment (ICD-10-PCS; 2017-11-04)
PROC: F07M6FZ Therapeutic Exercise Treatment of Musculoskeletal System - Whole Body using Assistive, Adaptive, Supportive or Protective Equipment (ICD-10-PCS; 2017-11-04)
DX: I69.398 Other sequelae of cerebral infarction (principal); G70.00 Myasthenia gravis without (acute) exacerbation; N39.0 Urinary tract infection, site not specified; R79.89 Other specified abnormal findings of blood chemistry; D72.828 Other elevated white blood cell count; M25.562 Pain in left knee; M25.561 Pain in right knee; M25.572 Pain in left ankle and joints of left foot; M25.571 Pain in right ankle and joints of right foot; Z85.72 Personal history of non-Hodgkin lymphomas; Z92.21 Personal history of antineoplastic chemotherapy; Z91.81 History of falling; Z88.0 Allergy status to penicillin; Z87.891 Personal history of nicotine dependence

== ENCOUNTER 2017-11-09 15:26 | Inpatient (IN) | payer MEDICARE ==
[2017-11-09 15:41] VITALS: BMI 30.9
--- NOTE | 2017-11-09 20:47 | PCM.OPOC ---
Physiatry Overall Plan of Care - Overall Plan of Care Estimated Length of Stay in Weeks: 3 Rehab Impairment: Mobility, Gait, Cognition, Balance, Coordination Etiologic Diagnosis: Cerebrovascular Accident Rehab/Medical Prognosis: Fair - Anticipated Interventions Physical Therapy:: Yes Occupational Therapy:: Yes Speech Therapy:: Yes Recreational Therapy:: Yes - Therapy Goals Bed Mobility: Independent Ambulation: Independent Functional Positional Changes:: Independent - Functional Outcomes Functional Outcomes: fair - Discharge Plan Identification of Barriers to Discharge: Home Situation Discharge Destination: Home
--- NOTE | 2017-11-09 20:49 | CP.PCM.CON ---
History of Present Illness - History of Present Illness History of Present Illness: 67 year old female admitted for acute rehab with a diagnosis of CVA, other history significant for myesthenia gravis, non hodgkins lymphoma, endocarditis Review of Systems - Musculoskeletal Musculoskeletal: Abnormal Gait, Muscle Weakness, Numbness - Neurological Neurological: Weakness Past Patient History - Infectious Disease Hx of Infectious Diseases: None - Past Medical History & Family History Past Medical History?: Yes - Past Social History Smoking Status: Former Smoker - CARDIAC Hx Cardiac Disorders: No Other/Comment: DEVELOPED ENDOCARDITIS DUE TO PLASMA PHARESIS SITE INFECTION - PULMONARY Hx Respiratory Disorders: No - NEUROLOGICAL Hx Neurological Disorder: No HX Cerebrovascular Accident: Yes (10/2017) Hx Syncope: Yes - HEENT Hx HEENT Problems: No - RENAL Hx Chronic Kidney Disease: No - ENDOCRINE/METABOLIC Hx Endocrine Disorders: No - HEMATOLOGICAL/ONCOLOGICAL Hx Blood Disorders: Yes Hx AIDS: No Hx Cancer: Yes Hx Chemotherapy: Yes Hx Human Immunodeficiency Virus (HIV): No - INTEGUMENTARY Hx Dermatological Problems: No - MUSCULOSKELETAL/RHEUMATOLOGICAL Hx Musculoskeletal Disorders: Yes Hx Falls: Yes (FELL 2X) Hx Myasthenia Gravis: Yes Other/Comment: INCLUSION-BODY MYOSITIS - GASTROINTESTINAL Hx Gastrointestinal Disorders: No - GENITOURINARY/GYNECOLOGICAL Hx Genitourinary Disorders: No - PSYCHIATRIC Hx Psychophysiologic Disorder: No Hx Substance Use: No - SURGICAL HISTORY Hx Surgeries: Yes Other/Comment: (+) R [employer]. THYMECTOMY - ANESTHESIA Hx Anesthesia: Yes Hx Anesthesia Reactions: No Hx Malignant Hyperthermia: No Meds Allergies/Adverse Reactions: Allergies Allergy/AdvReac Type Severity Reaction Status Date / Time Penicillins Allergy RASH Verified 11/09/17 18:18 - Medications Medications: Current Medications Acetaminophen (Tylenol 325mg Tab) 650 mg PO Q4 PRN PRN Reason: Headache Aspirin (Ecotrin) 81 mg PO DAILY [facility] Atorvastatin Calcium (Lipitor) 20 mg PO HS [facility] Clopidogrel Bisulfate (Plavix) 75 mg PO DAILY [facility] Enoxaparin Sodium (Lovenox) 40 mg SC DAILY [facility] PRN Reason: Protocol Ibuprofen (Motrin Tab) 600 mg PO Q6 PRN PRN Reason: Pain, Mild (1-3) Metoprolol Tartrate (Lopressor) 25 mg PO Q12 [facility] Nitrofurantoin Macrocrystals (Macrobid) 100 mg PO Q12 [facility] Tramadol HCl (Ultram) 50 mg PO Q4 PRN PRN Reason: Pain 4-10 Physical Exam - Head Exam Head Exam: ATRAUMATIC, NORMAL INSPECTION, NORMOCEPHALIC - Eye Exam Eye Exam: EOMI, Normal appearance Pupil Exam: NORMAL ACCOMODATION - ENT Exam ENT Exam: Mucous Membranes Moist - Neck Exam Neck exam: Positive for: Normal Inspection - Respiratory Exam Respiratory Exam: Clear to Auscultation Bilateral, NORMAL BREATHING PATTERN - Cardiovascular Exam Cardiovascular Exam: REGULAR RHYTHM - GI/Abdominal Exam GI & Abdominal Exam: Normal Bowel Sounds - Rectal Exam Rectal Exam: NORMAL INSPECTION - Exam External exam: NORMAL EXTERNAL EXAM - Extremities Exam Extremities exam: Positive for: normal inspection Additional comments: muscle strength 3/5 DTR 2plus - Back Exam Back exam: NORMAL INSPECTION - Neurological Exam Neurological exam: Alert, CN II-XII Intact - Psychiatric Exam Psychiatric exam: Normal Affect - Skin Skin Exam: Normal Color, Warm Results - Vital Signs Recent Vital Signs: Last Vital Signs Temp Pulse 69 11/09/17 18:33 Resp 18 11/09/17 18:33 BP Pulse Ox 98 11/09/17 18:33 Assessment & Plan (1) CVA (cerebral vascular accident) Assessment and Plan: also history of endocarditis, nonhodgkins lymphoma, myaesthenia gravis Plan for physical, occupational, rec and speech therapy for range of motion, strengthening transfers and gait training to write, overall plan of care Status: Acute (2) Syncope Status: Acute
[2017-11-10 06:41] LABS: HEMOGLOBIN 12.8 g/dL (12.0-16.0); MEAN CELL VOLUME 71.7 fl (81.0-99.0); MEAN CORPUSCULAR HEMOGLOBIN 23.2 pg (27.0-31.0); MEAN CORPUSCULAR HGB CONC 32.3 g/dL (33.0-37.0); RBC 5.54 Mil/uL (3.80-5.20); RED CELL DISTRIBUTION WIDTH 21.5 % (11.5-14.5); WHITE BLOOD COUNT 6.1 K/uL (4.8-10.8)
[2017-11-10 06:47] LABS: BLOOD UREA NITROGEN 20 mg/dl (7-17); CALCIUM 10.1 mg/dL (8.4-10.2); GFR AFRICAN-AMERICAN > 60; GFR NON-AFRICAN AMERICAN > 60
[2017-11-10] MEDS ORDERED: Enoxaparin 40 mg Syringe SC SCH (09:00)
--- NOTE | 2017-11-10 10:47 | CP.PCM.HP ---
History of Present Illness - History of Present Illness History of Present Illness: CC: Mechanical falls 67 year old female PMH Myasthenia Gravis, Non Hodgkins Lymphoma s/p chemo, hx of URI for one week (neg CXR), presents to the ER on 11/03/2017 after 2 mechanical falls, each time after attempting to open her cat food. The first episode 911 was called however she refused care, the second time she fell, neighbors responded. Patient states she did not lose consciousness prior to falling, and complains of some acute moderate sharp/aching pain in her knee and ankle. XR/CT imaging in ER have all been negative. In ER pt found to have WBC 13k, UA- some hyaline casts but no evidence of UTI. UCx pending. CT head showed possible evolving ischemia and MRI was completed, showing right basal ganglia infarct. Patient did not exhibit any bulbar weakness, or respiratory symptoms/difficulty. No focal neuro deficits, AAOx3. Mild Azotemia. Neuro consulted, Dr. Hogan. HD stable. The patient was observed overnight on telemetry without changes. On 11/04, MRI demonstrated basal ganglia acute/subacute infarct. Pt seen by PT and recommends physical therapy. The patient was discharged to TCU for further PT/OT and for further workup by Dr. Hogan, neurology in stable condition. On 11/09/2017, after an uncomplicated stay in TCU, the patient was discharged to acute rehabilitation for further physical therapy and occupational therapy. Today. 11/10/2017, is her last day of her antibiotic therapy for UTI. She is complaining of occasional pain in her hips bilaterally and neck pain but it is controlled with Motrin. She has no other complaints today. She says therapies are going well. The patient's son Omar was called at [phone] and voicemail was left updating him on the status of the patient. To note: incidental soft tissue mass/density noted on CT and MRI. Physical examination did not show any tenderness, swelling, erythema, or palpable mass. May follow up as outpatient with Dermatology. Present on Admission - Present on Admission Any Indicators Present on Admission: No Review of Systems - Review of Systems Review of Systems: reviewed and no additional remarkable complaints except what was dictated in HPI. Past Patient History - Infectious Disease Hx of Infectious Diseases: None - Past Medical History & Family History Past Medical History?: Yes - Past Social History Smoking Status: Former Smoker - CARDIAC Hx Cardiac Disorders: No Other/Comment: DEVELOPED ENDOCARDITIS DUE TO PLASMA PHARESIS SITE INFECTION - PULMONARY Hx Respiratory Disorders: No - NEUROLOGICAL Hx Neurological Disorder: No HX Cerebrovascular Accident: Yes (10/2017) Hx Syncope: Yes - HEENT Hx HEENT Problems: No - RENAL Hx Chronic Kidney Disease: No - ENDOCRINE/METABOLIC Hx Endocrine Disorders: No - HEMATOLOGICAL/ONCOLOGICAL Hx Blood Disorders: Yes Hx AIDS: No Hx Cancer: Yes Hx Chemotherapy: Yes Hx Human Immunodeficiency Virus (HIV): No - INTEGUMENTARY Hx Dermatological Problems: No - MUSCULOSKELETAL/RHEUMATOLOGICAL Hx Musculoskeletal Disorders: Yes Hx Falls: Yes (FELL 2X) Hx Myasthenia Gravis: Yes Other/Comment: INCLUSION-BODY MYOSITIS - GASTROINTESTINAL Hx Gastrointestinal Disorders: No - GENITOURINARY/GYNECOLOGICAL Hx Genitourinary Disorders: No - PSYCHIATRIC Hx Psychophysiologic Disorder: No Hx Substance Use: No - SURGICAL HISTORY Hx Surgeries: Yes Other/Comment: (+) R [employer]. THYMECTOMY - ANESTHESIA Hx Anesthesia: Yes Hx Anesthesia Reactions: No Hx Malignant Hyperthermia: No Meds Allergies/Adverse Reactions: Allergies Allergy/AdvReac Type Severity Reaction Status Date / Time Penicillins Allergy RASH Verified 11/09/17 18:18 Physical Exam - Additional Findings Additional findings: Physical exam: Constitutional- cooperative, awake, confusion resolved. responds appropriately to questions Head- NCAT, PERRL Eye- PERRL, EOMI ENT- normal exam, MMM. Neck- normal inspection, supple, no JVD Respiratory- CTAB, no wheezes rales rhonchi Cardiovascular- RRR, +S1, +S2 no MRG GI/Abdominal- normal bowel sounds, soft, no mass, no hsm Skin- warm, dry Extremities Exam- normal capillary refill, normal inspection Neurological Exam- alert, awake, oriented Psych- normal mood, normal affect Results - Vital Signs Recent Vital Signs: Last Vital Signs Temp 97.2 F L 11/10/17 08:57 Pulse 52 L 11/10/17 08:57 Resp 18 11/10/17 08:57 BP 134/65 11/10/17 08:57 Pulse Ox 96 11/10/17 08:57 - Labs Result Diagrams: 11/10/17 05:15 11/10/17 05:15 Labs: Laboratory Results - last 24 hr 11/10/17 11/10/17 05:15 05:15 WBC 6.1 RBC 5.54 H Hgb 12.8 Hct 39.7 MCV 71.7 L MCH 23.2 L MCHC 32.3 L RDW 21.5 H Plt Count 264 Sodium 136 Potassium 4.1 Chloride 98 Carbon Dioxide 33 H Anion Gap 9 L BUN 20 H Creatinine 0.6 L Est GFR ( Amer) > 60 Est GFR (Non-Af Amer) > 60 Random Glucose 102 Calcium 10.1 Assessment & Plan - Assessment and Plan (Free Text) Plan: CVA acute/subacute Basal ganglia Near Syncope Fall x2 while trying to open her cat food Neuro consult Dr. Hogan appreciated and followed. ASA, PLAVIX, STATIN Orthostatic BP reads pending CT head showed possible evolving area of ischemia MRI read +basal ganglia acute/subacute CVA Echo complete Carotid dopplers complete repeat lytes monitor for worsening of symptoms Myasthenia Gravis Neuro consult for possible exacerbation? No bulbar weakness or respiratory symptoms Fall all imaging negative supportive care and pain control Leukocytosis with bands 4 resolved today pt had 1 week history of URI sx, was completing course of Azithromycin 3 days remaining checking urine as well, unclear if patient is symptomatic Azotemia BUN 20 NS @ 125cc/hr monitor UTI Macrobid BID course completed 11/10/2017 UCX: Multiple species, likely contamination. VTE ppx Lovenox
[2017-11-11] MEDS: Enoxaparin 40 mg Syringe SC SCH (08:42)
--- NOTE | 2017-11-11 10:57 | CP.PCM.PN ---
Subjective - Date & Time of Evaluation Date of Evaluation: 11/11/17 Time of Evaluation: 10:25 - Subjective Subjective: Patient seen and examined while undergoing physical therapy. Still c/o pain occasionally to her left hip and leg and neck but says it is controlled with ultram and tylenol. Has no other complaints today. Feeling better. Denies cp/ sob. Objective - Vital Signs/Intake and Output Vital Signs (last 24 hours): Temp Pulse Resp BP Pulse Ox 97 F L 65 20 133/69 98 11/11/17 10:00 11/11/17 10:00 11/11/17 10:00 11/11/17 10:00 11/11/17 10:00 - Medications Medications: Current Medications Acetaminophen (Tylenol 325mg Tab) 650 mg PO Q4 PRN PRN Reason: Headache Aspirin (Ecotrin) 81 mg PO DAILY [facility] Last Admin: 11/11/17 08:40 Dose: 81 mg Atorvastatin Calcium (Lipitor) 20 mg PO HS [facility] Last Admin: 11/10/17 21:26 Dose: 20 mg Clopidogrel Bisulfate (Plavix) 75 mg PO DAILY [facility] Last Admin: 11/11/17 08:39 Dose: 75 mg Enoxaparin Sodium (Lovenox) 40 mg SC DAILY [facility] PRN Reason: Protocol Last Admin: 11/11/17 08:42 Dose: 40 mg Ibuprofen (Motrin Tab) 600 mg PO Q6 PRN PRN Reason: Pain, Mild (1-3) Metoprolol Tartrate (Lopressor) 25 mg PO Q12 [facility] Last Admin: 11/11/17 08:40 Dose: 25 mg Nitrofurantoin Macrocrystals (Macrobid) 100 mg PO Q12 [facility] Last Admin: 11/11/17 08:40 Dose: 100 mg Tramadol HCl (Ultram) 50 mg PO Q4 PRN PRN Reason: Pain 4-10 - Labs Labs: 11/10/17 05:15 11/10/17 05:15 - Additional Findings Additional findings: Physical exam: Constitutional- cooperative, awake, responds appropriately to questions Head- NCAT, PERRL Eye- PERRL, EOMI ENT- normal exam, MMM. Neck- normal inspection, supple, no JVD Respiratory- CTAB, no wheezes rales rhonchi Cardiovascular- RRR, +S1, +S2 no MRG GI/Abdominal- normal bowel sounds, soft, no mass, no hsm Skin- warm, dry Extremities Exam- normal capillary refill, normal inspection Neurological Exam- alert, awake, oriented Psych- normal mood, normal affect Assessment and Plan - Assessment and Plan (Free Text) Plan: CVA acute/subacute Basal ganglia Near Syncope Fall x2 while trying to open her cat food Neuro consult Dr. Hogan appreciated and followed. ASA, PLAVIX, STATIN Orthostatic BP reads pending CT head showed possible evolving area of ischemia MRI read +basal ganglia acute/subacute CVA Echo complete Carotid dopplers complete repeat lytes For further Pt/OT in acute rehab Physiatry consultation Myasthenia Gravis Continue PT/OT No bulbar weakness or respiratory symptoms Fall all imaging negative supportive care and pain control Azotemia BUN 20 NS @ 125cc/hr monitor UTI Macrobid BID course completed 11/10/2017 UCX: Multiple species, likely contamination. VTE ppx Lovenox
--- NOTE | 2017-11-11 14:41 | CP.PCM.PN ---
Subjective - Date & Time of Evaluation Date of Evaluation: 11/11/17 Time of Evaluation: 12:00 - Subjective Subjective: no acute complaints at present Objective - Vital Signs/Intake and Output Vital Signs (last 24 hours): Temp Pulse Resp BP Pulse Ox 97 F L 65 20 133/69 98 11/11/17 10:00 11/11/17 10:00 11/11/17 10:00 11/11/17 10:00 11/11/17 10:00 - Medications Medications: Current Medications Acetaminophen (Tylenol 325mg Tab) 650 mg PO Q4 PRN PRN Reason: Headache Aspirin (Ecotrin) 81 mg PO DAILY [facility] Last Admin: 11/11/17 08:40 Dose: 81 mg Atorvastatin Calcium (Lipitor) 20 mg PO HS [facility] Last Admin: 11/10/17 21:26 Dose: 20 mg Clopidogrel Bisulfate (Plavix) 75 mg PO DAILY [facility] Last Admin: 11/11/17 08:39 Dose: 75 mg Enoxaparin Sodium (Lovenox) 40 mg SC DAILY [facility] PRN Reason: Protocol Last Admin: 11/11/17 08:42 Dose: 40 mg Ibuprofen (Motrin Tab) 600 mg PO Q6 PRN PRN Reason: Pain, Mild (1-3) Metoprolol Tartrate (Lopressor) 25 mg PO Q12 [facility] Last Admin: 11/11/17 08:40 Dose: 25 mg Nitrofurantoin Macrocrystals (Macrobid) 100 mg PO Q12 [facility] Last Admin: 11/11/17 08:40 Dose: 100 mg Tramadol HCl (Ultram) 50 mg PO Q4 PRN PRN Reason: Pain 4-10 - Labs Labs: 11/10/17 05:15 11/10/17 05:15 - Head Exam Head Exam: ATRAUMATIC, NORMAL INSPECTION, NORMOCEPHALIC - Eye Exam Eye Exam: EOMI, Normal appearance, PERRL Pupil Exam: NORMAL ACCOMODATION - ENT Exam ENT Exam: Mucous Membranes Moist, Normal Exam - Neck Exam Neck Exam: Normal Inspection - Respiratory Exam Respiratory Exam: NORMAL BREATHING PATTERN - Cardiovascular Exam Cardiovascular Exam: REGULAR RHYTHM - GI/Abdominal Exam GI & Abdominal Exam: Normal Bowel Sounds - Rectal Exam Rectal Exam: NORMAL INSPECTION - Exam External exam: NORMAL EXTERNAL EXAM - Extremities Exam Extremities Exam: Full ROM, Normal Capillary Refill - Back Exam Back Exam: NORMAL INSPECTION - Neurological Exam Neurological Exam: Alert, Awake Neuro motor strength exam: Left Upper Extremity: 3, Right Upper Extremity: 3, Left Lower Extremity: 3, Right Lower Extremity: 3 - Psychiatric Exam Psychiatric exam: Normal Affect, Normal Mood - Skin Skin Exam: Dry, Intact Assessment and Plan (1) CVA (cerebral vascular accident) Assessment & Plan: plan for physical, occupational rec and speech therapy Status: Acute (2) Syncope Status: Acute
--- NOTE | 2017-11-11 15:31 | RAD ---
PROCEDURE: Left Ankle Radiographs. HISTORY: worsening ankle pain s/p fall r/o fx COMPARISON: None FINDINGS: BONES: There is oblique fracture through the lateral malleolus which appears nondisplaced but may be articular. No destructive bony lesions appreciated diffuse osteopenia suggests osteoporosis. JOINTS: No dislocation or subluxation. Cortical sclerosis appreciate at the tibiotalar joint and subtalar joint. Ankle mortise maintained. Talar dome intact SOFT TISSUES: Mild lateral malleolar soft edema is identified extending posteriorly somewhat. OTHER FINDINGS: None. IMPRESSION: Nondisplaced lateral malleolar fracture without disruption of the ankle mortise. This may be articular fracture however. No dislocation or subluxation.
--- NOTE | 2017-11-11 16:07 | CP.PCM.CON ---
Past Patient History - Infectious Disease Hx of Infectious Diseases: None - Past Medical History & Family History Past Medical History?: Yes - Past Social History Smoking Status: Former Smoker - CARDIAC Hx Cardiac Disorders: No Other/Comment: DEVELOPED ENDOCARDITIS DUE TO PLASMA PHARESIS SITE INFECTION - PULMONARY Hx Respiratory Disorders: No - NEUROLOGICAL Hx Neurological Disorder: No HX Cerebrovascular Accident: Yes (10/2017) Hx Syncope: Yes - HEENT Hx HEENT Problems: No - RENAL Hx Chronic Kidney Disease: No - ENDOCRINE/METABOLIC Hx Endocrine Disorders: No - HEMATOLOGICAL/ONCOLOGICAL Hx Blood Disorders: Yes Hx AIDS: No Hx Cancer: Yes Hx Chemotherapy: Yes Hx Human Immunodeficiency Virus (HIV): No - INTEGUMENTARY Hx Dermatological Problems: No - MUSCULOSKELETAL/RHEUMATOLOGICAL Hx Musculoskeletal Disorders: Yes Hx Falls: Yes (FELL 2X) Hx Myasthenia Gravis: Yes Other/Comment: INCLUSION-BODY MYOSITIS - GASTROINTESTINAL Hx Gastrointestinal Disorders: No - GENITOURINARY/GYNECOLOGICAL Hx Genitourinary Disorders: No - PSYCHIATRIC Hx Psychophysiologic Disorder: No Hx Substance Use: No - SURGICAL HISTORY Hx Surgeries: Yes Other/Comment: (+) R [employer]IP[employer]. THYMECTOMY - ANESTHESIA Hx Anesthesia: Yes Hx Anesthesia Reactions: No Hx Malignant Hyperthermia: No Meds Allergies/Adverse Reactions: Allergies Allergy/AdvReac Type Severity Reaction Status Date / Time Penicillins Allergy RASH Verified 11/09/17 18:18 - Medications Medications: Current Medications Acetaminophen (Tylenol 325mg Tab) 650 mg PO Q4 PRN PRN Reason: Pain, moderate (4-7) Aspirin (Ecotrin) 81 mg PO DAILY [facility] Last Admin: 11/11/17 08:40 Dose: 81 mg Atorvastatin Calcium (Lipitor) 20 mg PO HS [facility] Last Admin: 11/10/17 21:26 Dose: 20 mg Clopidogrel Bisulfate (Plavix) 75 mg PO DAILY [facility] Last Admin: 11/11/17 08:39 Dose: 75 mg Enoxaparin Sodium (Lovenox) 40 mg SC DAILY [facility] PRN Reason: Protocol Last Admin: 11/11/17 08:42 Dose: 40 mg Ibuprofen (Motrin Tab) 600 mg PO Q6 PRN PRN Reason: Pain, Mild (1-3) Metoprolol Tartrate (Lopressor) 25 mg PO Q12 [facility] Last Admin: 11/11/17 08:40 Dose: 25 mg Nitrofurantoin Macrocrystals (Macrobid) 100 mg PO Q12 [facility] Last Admin: 11/11/17 08:40 Dose: 100 mg Tramadol HCl (Ultram) 50 mg PO Q6H PRN PRN Reason: Pain, severe (8-10) Results - Vital Signs Recent Vital Signs: Last Vital Signs Temp 97 F L 11/11/17 10:00 Pulse 65 11/11/17 10:00 Resp 20 11/11/17 10:00 BP 133/69 11/11/17 10:00 Pulse Ox 98 11/11/17 10:00 - Labs Result Diagrams: 11/10/17 05:15 11/10/17 05:15
--- NOTE | 2017-11-11 20:10 | CP.PCM.CON ---
History of Present Illness - History of Present Illness History of Present Illness: Mrs. Castillo is a 67-year-old woman who is admitted to acute rehab after having suffered from a right subcortical acute ischemic stroke. She is currently in no acute distress, but complained of left foot pain. A recent X-ray demonstrated fracture of the left foot. She had no other new complaints. She is on aspirin/plavix and statin for secondary stroke prevention. Review of Systems - Review of Systems All systems: reviewed and no additional remarkable complaints except Past Patient History - Infectious Disease Hx of Infectious Diseases: None - Past Medical History & Family History Past Medical History?: Yes - Past Social History Smoking Status: Former Smoker - CARDIAC Hx Cardiac Disorders: No Other/Comment: DEVELOPED ENDOCARDITIS DUE TO PLASMA PHARESIS SITE INFECTION - PULMONARY Hx Respiratory Disorders: No - NEUROLOGICAL Hx Neurological Disorder: No HX Cerebrovascular Accident: Yes (10/2017) Hx Syncope: Yes - HEENT Hx HEENT Problems: No - RENAL Hx Chronic Kidney Disease: No - ENDOCRINE/METABOLIC Hx Endocrine Disorders: No - HEMATOLOGICAL/ONCOLOGICAL Hx Blood Disorders: Yes Hx AIDS: No Hx Cancer: Yes Hx Chemotherapy: Yes Hx Human Immunodeficiency Virus (HIV): No - INTEGUMENTARY Hx Dermatological Problems: No - MUSCULOSKELETAL/RHEUMATOLOGICAL Hx Musculoskeletal Disorders: Yes Hx Falls: Yes (FELL 2X) Hx Myasthenia Gravis: Yes Other/Comment: INCLUSION-BODY MYOSITIS - GASTROINTESTINAL Hx Gastrointestinal Disorders: No - GENITOURINARY/GYNECOLOGICAL Hx Genitourinary Disorders: No - PSYCHIATRIC Hx Psychophysiologic Disorder: No Hx Substance Use: No - SURGICAL HISTORY Hx Surgeries: Yes Other/Comment: (+) R [employer]. THYMECTOMY - ANESTHESIA Hx Anesthesia: Yes Hx Anesthesia Reactions: No Hx Malignant Hyperthermia: No Meds Allergies/Adverse Reactions: Allergies Allergy/AdvReac Type Severity Reaction Status Date / Time Penicillins Allergy RASH Verified 11/09/17 18:18 - Medications Medications: Current Medications Acetaminophen (Tylenol 325mg Tab) 650 mg PO Q4 PRN PRN Reason: Pain, moderate (4-7) Aspirin (Ecotrin) 81 mg PO DAILY [facility] Last Admin: 11/11/17 08:40 Dose: 81 mg Atorvastatin Calcium (Lipitor) 20 mg PO HS [facility] Last Admin: 11/10/17 21:26 Dose: 20 mg Clopidogrel Bisulfate (Plavix) 75 mg PO DAILY [facility] Last Admin: 11/11/17 08:39 Dose: 75 mg Enoxaparin Sodium (Lovenox) 40 mg SC DAILY [facility] PRN Reason: Protocol Last Admin: 11/11/17 08:42 Dose: 40 mg Ibuprofen (Motrin Tab) 600 mg PO Q6 PRN PRN Reason: Pain, Mild (1-3) Metoprolol Tartrate (Lopressor) 25 mg PO Q12 [facility] Last Admin: 11/11/17 08:40 Dose: 25 mg Nitrofurantoin Macrocrystals (Macrobid) 100 mg PO Q12 [facility] Last Admin: 11/11/17 08:40 Dose: 100 mg Tramadol HCl (Ultram) 50 mg PO Q6H PRN PRN Reason: Pain, severe (8-10) Physical Exam - Constitutional Appears: Well - Head Exam Head Exam: ATRAUMATIC, NORMAL INSPECTION, NORMOCEPHALIC - Eye Exam Eye Exam: EOMI, Normal appearance, PERRL - ENT Exam ENT Exam: Mucous Membranes Moist, Normal Exam - Neck Exam Neck exam: Positive for: Normal Inspection - Cardiovascular Exam Cardiovascular Exam: REGULAR RHYTHM, +S1, +S2 - Rectal Exam Rectal Exam: Deferred - Extremities Exam Extremities exam: Positive for: normal inspection - Back Exam Back exam: NORMAL INSPECTION - Neurological Exam Neurological exam: Abnormal Gait, Alert, CN II-XII Intact, Oriented x3, Reflexes Normal Additional comments: Left upper extremity pronator drift and decreased sensation on the left side. NIHSS= 2 Results - Vital Signs Recent Vital Signs: Last Vital Signs Temp 97 F L 11/11/17 10:00 Pulse 65 11/11/17 10:00 Resp 20 11/11/17 10:00 BP 133/69 11/11/17 10:00 Pulse Ox 98 11/11/17 10:00 - Labs Result Diagrams: 11/10/17 05:15 11/10/17 05:15 Assessment & Plan (1) CVA (cerebral vascular accident) Assessment and Plan: Continue aspirin, plavix, and lipitor for secondary stroke prevention. PT/OT plan for recovery. Will follow from a neurological standpoint along with the primary team. Thank you. Status: Acute Priority: High
[2017-11-12] MEDS: Enoxaparin 40 mg Syringe SC SCH (08:48)
--- NOTE | 2017-11-12 12:34 | CP.PCM.PN ---
Subjective - Date & Time of Evaluation Date of Evaluation: 11/12/17 Time of Evaluation: 09:30 - Subjective Subjective: no acute complaints less left leg pain Objective - Vital Signs/Intake and Output Vital Signs (last 24 hours): Temp Pulse Resp BP Pulse Ox 97.7 F 60 18 153/59 H 94 L 11/12/17 08:04 11/12/17 08:49 11/12/17 08:04 11/12/17 08:49 11/12/17 08:04 - Medications Medications: Current Medications Acetaminophen (Tylenol 325mg Tab) 650 mg PO Q4 PRN PRN Reason: Pain, moderate (4-7) Aspirin (Ecotrin) 81 mg PO DAILY [facility] Last Admin: 11/12/17 08:52 Dose: 81 mg Atorvastatin Calcium (Lipitor) 20 mg PO HS [facility] Last Admin: 11/11/17 21:39 Dose: 20 mg Clopidogrel Bisulfate (Plavix) 75 mg PO DAILY [facility] Last Admin: 11/12/17 08:49 Dose: 75 mg Enoxaparin Sodium (Lovenox) 40 mg SC DAILY [facility] PRN Reason: Protocol Last Admin: 11/12/17 08:48 Dose: 40 mg Ibuprofen (Motrin Tab) 600 mg PO Q6 PRN PRN Reason: Pain, Mild (1-3) Metoprolol Tartrate (Lopressor) 25 mg PO Q12 [facility] Last Admin: 11/12/17 08:49 Dose: 25 mg Nitrofurantoin Macrocrystals (Macrobid) 100 mg PO Q12 [facility] Last Admin: 11/12/17 08:49 Dose: 100 mg Tramadol HCl (Ultram) 50 mg PO Q6H PRN PRN Reason: Pain, severe (8-10) - Labs Labs: 11/10/17 05:15 11/10/17 05:15 - Head Exam Head Exam: ATRAUMATIC, NORMAL INSPECTION, NORMOCEPHALIC - Eye Exam Eye Exam: EOMI, Normal appearance, PERRL Pupil Exam: NORMAL ACCOMODATION - ENT Exam ENT Exam: Mucous Membranes Moist, Normal Exam - Neck Exam Neck Exam: Normal Inspection - Respiratory Exam Respiratory Exam: NORMAL BREATHING PATTERN - Cardiovascular Exam Cardiovascular Exam: REGULAR RHYTHM - GI/Abdominal Exam GI & Abdominal Exam: Normal Bowel Sounds - Rectal Exam Rectal Exam: NORMAL INSPECTION - Exam External exam: NORMAL EXTERNAL EXAM - Extremities Exam Extremities Exam: Full ROM, Normal Capillary Refill - Back Exam Back Exam: NORMAL INSPECTION - Neurological Exam Neurological Exam: Alert, Awake Neuro motor strength exam: Left Upper Extremity: 2/1 (brace), Right Upper Extremity: 3, Left Lower Extremity: 3, Right Lower Extremity: 3 - Psychiatric Exam Psychiatric exam: Normal Affect, Normal Mood - Skin Skin Exam: Intact Assessment and Plan (1) CVA (cerebral vascular accident) Assessment & Plan: plan fo rphysical ,occupational, rec and speech therapy brace for left leg , fracture, follow up with DR. Lane Status: Acute (2) Syncope Status: Acute
--- NOTE | 2017-11-12 13:21 | CP.PCM.CON ---
History of Present Illness - History of Present Illness History of Present Illness: 67 year old female with PMHx of myasthenia gravis and Non Hodgkins Lymphoma s/p chemo seen on acute rehab floor for left ankle pain. Patient came to the ED on 11/03/17 after 2 mechanical falls. Patient denies LOC after both falls. Patient states she was experiencing some acute moderate sharp/aching pain in her knee and ankle but that they took xrays and informed her they were negative for any fractures. Patient has remained in the hospital as she was found to have had a stroke. Patient says she has been working with physical therapy and has been experiencing an increase in her left ankle pain. Patient states it hurts to walk or bear weight and feels like a sharp pain on the outside of the ankle. Denies F/C/N/V/CP/SOB at this time. 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 - PULMONARY Hx Respiratory Disorders: No - NEUROLOGICAL Hx Neurological Disorder: No HX Cerebrovascular Accident: Yes (10/2017) Hx Syncope: Yes - HEENT Hx HEENT Problems: No - RENAL Hx Chronic Kidney Disease: No - ENDOCRINE/METABOLIC Hx Endocrine Disorders: No - HEMATOLOGICAL/ONCOLOGICAL Hx Blood Disorders: Yes Hx AIDS: No Hx Cancer: Yes Hx Chemotherapy: Yes Hx Human Immunodeficiency Virus (HIV): No - INTEGUMENTARY Hx Dermatological Problems: No - MUSCULOSKELETAL/RHEUMATOLOGICAL Hx Musculoskeletal Disorders: Yes Hx Falls: Yes (FELL 2X) Hx Myasthenia Gravis: Yes Other/Comment: INCLUSION-BODY MYOSITIS - GASTROINTESTINAL Hx Gastrointestinal Disorders: No - GENITOURINARY/GYNECOLOGICAL Hx Genitourinary Disorders: No - PSYCHIATRIC Hx Psychophysiologic Disorder: No Hx Substance Use: No - SURGICAL HISTORY Hx Surgeries: Yes Other/Comment: (+) R [employer]. THYMECTOMY - ANESTHESIA Hx Anesthesia: Yes Hx Anesthesia Reactions: No Hx Malignant Hyperthermia: No Meds Allergies/Adverse Reactions: Allergies Allergy/AdvReac Type Severity Reaction Status Date / Time Penicillins Allergy RASH Verified 11/09/17 18:18 - Medications Medications: Current Medications Acetaminophen (Tylenol 325mg Tab) 650 mg PO Q4 PRN PRN Reason: Pain, moderate (4-7) Aspirin (Ecotrin) 81 mg PO DAILY [facility] Last Admin: 11/12/17 08:52 Dose: 81 mg Atorvastatin Calcium (Lipitor) 20 mg PO HS [facility] Last Admin: 11/11/17 21:39 Dose: 20 mg Clopidogrel Bisulfate (Plavix) 75 mg PO DAILY [facility] Last Admin: 11/12/17 08:49 Dose: 75 mg Enoxaparin Sodium (Lovenox) 40 mg SC DAILY [facility] PRN Reason: Protocol Last Admin: 11/12/17 08:48 Dose: 40 mg Ibuprofen (Motrin Tab) 600 mg PO Q6 PRN PRN Reason: Pain, Mild (1-3) Metoprolol Tartrate (Lopressor) 25 mg PO Q12 [facility] Last Admin: 11/12/17 08:49 Dose: 25 mg Nitrofurantoin Macrocrystals (Macrobid) 100 mg PO Q12 [facility] Last Admin: 11/12/17 08:49 Dose: 100 mg Tramadol HCl (Ultram) 50 mg PO Q6H PRN PRN Reason: Pain, severe (8-10) Physical Exam - Constitutional Appears: Well, Non-toxic, No Acute Distress - Extremities Exam Additional comments: Left lower extremity exam: Vasc: DP/PT pulses palpable 2/4. Temp gradient warm to cool. Localized pedal edema non pitting to lateral ankle. CFT < 3sec to all digits Derm: No ecchymosis, no erythema, no open lesions, skin well hydrated Neuro: Protective sensation grossly intact Ortho: Moderate to severe tenderness upon passive ankle dorsiflexion and STJ inversion and eversion. Moderate tenderness to palpation of lateral ankle at level of distal fibula - Neurological Exam Neurological exam: Alert - Psychiatric Exam Psychiatric exam: Normal Affect, Normal Mood Results - Vital Signs Recent Vital Signs: Last Vital Signs Temp 97.7 F 11/12/17 08:04 Pulse 60 11/12/17 08:49 Resp 18 11/12/17 08:04 BP 153/59 H 11/12/17 08:49 Pulse Ox 94 L 11/12/17 08:04 - Labs Result Diagrams: 11/10/17 05:15 11/10/17 05:15 Assessment & Plan - Assessment and Plan (Free Text) Assessment: 67 y/o female with PMHx of myasthenia gravis, non-Hodgkins lymphoma s/p basal ganglia infarct seen in acute rehab for left distal fibula fracture, nondislocated with mild posterior displacement noted Plan: Pt seen and evaluated at bedside with attending Dr. Lane Xrays of left ankle reveal mildly posteriorly displaced lateral malleolar fracture; no dislocation or subluxation Posterior splint applied to LLE Pt to remain NWB to LLE with use of assistive device Will consider applying BK cast tomorrow for added stability and patient comfort Podiatry will continue to follow Thank you for allowing to participate in this patient's care
[2017-11-13 08:20] LABS: HEMOGLOBIN 13.8 g/dL (12.0-16.0); MEAN CELL VOLUME 71.4 fl (81.0-99.0); MEAN CORPUSCULAR HEMOGLOBIN 23.9 pg (27.0-31.0); MEAN CORPUSCULAR HGB CONC 33.5 g/dL (33.0-37.0); RBC 5.77 Mil/uL (3.80-5.20); WHITE BLOOD COUNT 6.3 K/uL (4.8-10.8)
[2017-11-13 08:31] LABS: BLOOD UREA NITROGEN 21 mg/dl (7-17); CALCIUM 10.6 mg/dL (8.4-10.2); GFR AFRICAN-AMERICAN > 60; GFR NON-AFRICAN AMERICAN > 60
[2017-11-13] MEDS: Enoxaparin 40 mg Syringe SC SCH (09:26)
[2017-11-13] MEDS: Pantoprazole 40 mg EC Tab PO SCH (13:15)
[2017-11-13] MEDS: Alum-Mag Hydrox-Simethicone Susp (30 mL) PO PRN (21:01)
[2017-11-14] MEDS: Pantoprazole 40 mg EC Tab PO SCH (08:57)
[2017-11-14] MEDS: Enoxaparin 40 mg Syringe SC SCH (08:57)
--- NOTE | 2017-11-14 10:29 | CP.PCM.PN ---
Subjective - Date & Time of Evaluation Date of Evaluation: 11/14/17 Time of Evaluation: 10:28 - Subjective Subjective: doing well tolerating PT hd stable nad no cp sob calf tenderness Objective - Vital Signs/Intake and Output Vital Signs (last 24 hours): Temp Pulse Resp BP Pulse Ox 97.3 F L 80 22 140/84 99 11/14/17 08:44 11/14/17 08:57 11/14/17 08:44 11/14/17 08:57 11/14/17 08:44 Constitutional- cooperative, awake, alert. Head- NCAT, PERRL Eye- PERRL, normal accommodation ENT- normal exam, MMM. Neck- normal inspection, supple, no JVD Respiratory- CTAB, no wheezes rales rhonchi Cardiovascular- RRR, +S1, +S2 no MRG GI/Abdominal- normal bowel sounds, soft Skin- warm, dry Extremities Exam- normal capillary refill, normal inspection Neurological Exam- alert, oriented Psych- normal mood, normal affect - Medications Medications: Current Medications Acetaminophen (Tylenol 325mg Tab) 650 mg PO Q4 PRN PRN Reason: Pain, moderate (4-7) Al Hydrox/Mg Hydrox/Simethicone (Maalox Plus 30 Ml) 30 ml PO Q4 PRN PRN Reason: .Abdominal pain Last Admin: 11/13/17 21:01 Dose: 30 ml Aspirin (Ecotrin) 81 mg PO DAILY [facility] Last Admin: 11/14/17 08:57 Dose: 81 mg Atorvastatin Calcium (Lipitor) 20 mg PO HS [facility] Last Admin: 11/13/17 21:01 Dose: 20 mg Clopidogrel Bisulfate (Plavix) 75 mg PO DAILY [facility] Last Admin: 11/14/17 08:57 Dose: 75 mg Enoxaparin Sodium (Lovenox) 40 mg SC DAILY [facility] PRN Reason: Protocol Last Admin: 11/14/17 08:57 Dose: 40 mg Ibuprofen (Motrin Tab) 600 mg PO Q6 PRN PRN Reason: Pain, Mild (1-3) Metoprolol Tartrate (Lopressor) 25 mg PO Q12 [facility] Last Admin: 11/14/17 08:57 Dose: 25 mg Pantoprazole Sodium (Protonix Ec Tab) 40 mg PO DAILY [facility] Last Admin: 11/14/17 08:57 Dose: 40 mg Tramadol HCl (Ultram) 50 mg PO Q6H PRN PRN Reason: Pain, severe (8-10) Last Admin: 11/14/17 08:59 Dose: 50 mg - Labs Labs: 11/13/17 07:20 11/13/17 07:20 Assessment and Plan - Assessment and Plan (Free Text) Plan: 67 year old female PMH Myasthenia Gravis, Non Hodgkins Lymphoma s/p chemo, hx of URI for one week (neg CXR), presents to the ER on 11/03/2017 after 2 mechanical falls, each time after attempting to open her cat food. The first episode 911 was called however she refused care, the second time she fell, neighbors responded. Patient states she did not lose consciousness prior to falling, and complains of some acute moderate sharp/aching pain in her knee and ankle. XR/CT imaging in ER have all been negative. In ER pt found to have WBC 13k, UA- some hyaline casts but no evidence of UTI. UCx pending. CT head showed possible evolving ischemia and MRI was completed, showing right basal ganglia infarct. Patient did not exhibit any bulbar weakness, or respiratory symptoms/difficulty. No focal neuro deficits, AAOx3. Mild Azotemia. Neuro consulted, Dr. Hogan. HD stable. The patient was observed overnight on telemetry without changes. On 11/04, MRI demonstrated basal ganglia acute/subacute infarct. Pt seen by PT and recommends physical therapy. The patient was discharged to TCU for further PT/OT and for further workup by Dr. Hogan, neurology in stable condition. On 11/09/2017, after an uncomplicated stay in TCU, the patient was discharged to acute rehabilitation for further physical therapy and occupational therapy. Today. 11/10/2017, is her last day of her antibiotic therapy for UTI. She is complaining of occasional pain in her hips bilaterally and neck pain but it is controlled with Motrin. She has no other complaints today. She says therapies are going well. The patient's son Omar was called at [phone] and voicemail was left updating him on the status of the patient. To note: incidental soft tissue mass/density noted on CT and MRI. Physical examination did not show any tenderness, swelling, erythema, or palpable mass. May follow up as outpatient with Dermatology. CVA Fall x2 while trying to open her cat food Neuro consult Dr. Hogan appreciated and followed. ASA, PLAVIX, STATIN Orthostatic BP reads pending CT head showed possible evolving area of ischemia MRI read +basal ganglia acute/subacute CVA Echo complete Carotid dopplers complete repeat lytes For further Pt/OT in acute rehab Physiatry consultation Myasthenia Gravis Continue PT/OT No bulbar weakness or respiratory symptoms Fall all imaging negative supportive care and pain control Azotemia BUN 20 NS @ 125cc/hr monitor UTI Macrobid BID course completed 11/10/2017 UCX: Multiple species, likely contamination. VTE ppx Lovenox
--- NOTE | 2017-11-14 12:26 | CP.PCM.PN ---
Subjective - Date & Time of Evaluation Date of Evaluation: 11/14/17 Time of Evaluation: 12:23 - Subjective Subjective: Ms. Castillo was seen and examined at the bedside. She is alert, oriented with episode of confusion. She is able to answer few questions appropriately and follows simple commands. She further states of going for a procedure today for her left foot. There is already a soft cast applied and being elevated in a pillow. She denies any headache, dizziness, lightheadedness, blurred vision, nausea, or vomiting. There was no untoward events overnight. Objective - Vital Signs/Intake and Output Vital Signs (last 24 hours): Temp Pulse Resp BP Pulse Ox 97.3 F L 80 22 140/84 99 11/14/17 08:44 11/14/17 08:57 11/14/17 08:44 11/14/17 08:57 11/14/17 08:44 - Medications Medications: Current Medications Acetaminophen (Tylenol 325mg Tab) 650 mg PO Q4 PRN PRN Reason: Pain, moderate (4-7) Al Hydrox/Mg Hydrox/Simethicone (Maalox Plus 30 Ml) 30 ml PO Q4 PRN PRN Reason: .Abdominal pain Last Admin: 11/13/17 21:01 Dose: 30 ml Aspirin (Ecotrin) 81 mg PO DAILY [facility] Last Admin: 11/14/17 08:57 Dose: 81 mg Atorvastatin Calcium (Lipitor) 20 mg PO HS [facility] Last Admin: 11/13/17 21:01 Dose: 20 mg Clopidogrel Bisulfate (Plavix) 75 mg PO DAILY [facility] Last Admin: 11/14/17 08:57 Dose: 75 mg Enoxaparin Sodium (Lovenox) 40 mg SC DAILY [facility] PRN Reason: Protocol Last Admin: 11/14/17 08:57 Dose: 40 mg Ibuprofen (Motrin Tab) 600 mg PO Q6 PRN PRN Reason: Pain, Mild (1-3) Metoprolol Tartrate (Lopressor) 25 mg PO Q12 [facility] Last Admin: 11/14/17 08:57 Dose: 25 mg Pantoprazole Sodium (Protonix Ec Tab) 40 mg PO DAILY [facility] Last Admin: 11/14/17 08:57 Dose: 40 mg Tramadol HCl (Ultram) 50 mg PO Q6H PRN PRN Reason: Pain, severe (8-10) Last Admin: 11/14/17 08:59 Dose: 50 mg - Labs Labs: 11/13/17 07:20 11/13/17 07:20 - Constitutional Appears: No Acute Distress - Head Exam Head Exam: NORMAL INSPECTION - Neurological Exam Neurological Exam: Alert, Awake Neuro motor strength exam: Left Upper Extremity: 4, Right Upper Extremity: 4, Left Lower Extremity: 4, Right Lower Extremity: 4 Additional comments: She is able to answer few questions appropriately, but with episode of confusion. She is able to follow simple commands. Sensations remains intact. Left upper extremity pronator drift and decreased sensation on the left side. NIHSS= 2 Assessment and Plan (1) CVA (cerebral vascular accident) Assessment & Plan: Case discussed with Dr. Bowens, continue all current medical, physical, occupational therapies. There is no new recommendations from neurology. Status: Acute
--- NOTE | 2017-11-14 15:01 | CP.PCM.PN ---
Subjective - Date & Time of Evaluation Date of Evaluation: 11/14/17 Time of Evaluation: 14:57 - Subjective Subjective: 67 y/o female seen at bedside this afternoon regarding left ankle fracture. Pt remains in posterior splint to LLE which is clean/dry/intact. She states she has been adjusting to the splint and that she has been working with the therapy team today. Pt states she is doing well with the rolling walker. Denies any other pedal complaints. Denies F/C/N/V/CP/SOB Objective - Vital Signs/Intake and Output Vital Signs (last 24 hours): Temp Pulse Resp BP Pulse Ox 97.3 F L 80 22 140/84 99 11/14/17 08:44 11/14/17 08:57 11/14/17 08:44 11/14/17 08:57 11/14/17 08:44 - Medications Medications: Current Medications Acetaminophen (Tylenol 325mg Tab) 650 mg PO Q4 PRN PRN Reason: Pain, moderate (4-7) Al Hydrox/Mg Hydrox/Simethicone (Maalox Plus 30 Ml) 30 ml PO Q4 PRN PRN Reason: .Abdominal pain Last Admin: 11/13/17 21:01 Dose: 30 ml Aspirin (Ecotrin) 81 mg PO DAILY [facility] Last Admin: 11/14/17 08:57 Dose: 81 mg Atorvastatin Calcium (Lipitor) 20 mg PO HS [facility] Last Admin: 11/13/17 21:01 Dose: 20 mg Clopidogrel Bisulfate (Plavix) 75 mg PO DAILY [facility] Last Admin: 11/14/17 08:57 Dose: 75 mg Enoxaparin Sodium (Lovenox) 40 mg SC DAILY [facility] PRN Reason: Protocol Last Admin: 11/14/17 08:57 Dose: 40 mg Ibuprofen (Motrin Tab) 600 mg PO Q6 PRN PRN Reason: Pain, Mild (1-3) Metoprolol Tartrate (Lopressor) 25 mg PO Q12 [facility] Last Admin: 11/14/17 08:57 Dose: 25 mg Pantoprazole Sodium (Protonix Ec Tab) 40 mg PO DAILY [facility] Last Admin: 11/14/17 08:57 Dose: 40 mg Tramadol HCl (Ultram) 50 mg PO Q6H PRN PRN Reason: Pain, severe (8-10) Last Admin: 11/14/17 08:59 Dose: 50 mg - Labs Labs: 11/13/17 07:20 11/13/17 07:20 - Constitutional Appears: Well, Non-toxic, No Acute Distress - Extremities Exam Additional comments: LLE with posterior splint clean, dry and intact Pt able to wiggle toes CFT < 3 sec to all digits (-) for calf tenderness - Neurological Exam Neurological Exam: Alert, Awake - Psychiatric Exam Psychiatric exam: Normal Affect, Normal Mood Assessment and Plan - Assessment and Plan (Free Text) Assessment: 67 y/o female with PMHx of myasthenia gravis, non-Hodgkins lymphoma s/p basal ganglia infarct seen in acute rehab for left distal fibula fracture, nondislocated with mild posterior displacement noted Plan: Pt seen and evaluated at bedside Discussed with attending Dr. Lane Xrays of left ankle revealed mildly posteriorly displaced lateral malleolar fracture; no dislocation or subluxation Posterior splint remains intact to LLE; pt to remain NWB with walker Podiatry will continue to follow Thank you for allowing to participate in this patient's care
[2017-11-15] MEDS: Pantoprazole 40 mg EC Tab PO SCH (08:39)
[2017-11-15] MEDS: Enoxaparin 40 mg Syringe SC SCH (08:42)
[2017-11-16 06:19] LABS: HEMOGLOBIN 13.5 g/dL (12.0-16.0); MEAN CELL VOLUME 71.7 fl (81.0-99.0); MEAN CORPUSCULAR HEMOGLOBIN 23.5 pg (27.0-31.0); MEAN CORPUSCULAR HGB CONC 32.8 g/dL (33.0-37.0); RBC 5.76 Mil/uL (3.80-5.20); RED CELL DISTRIBUTION WIDTH 20.5 % (11.5-14.5)
[2017-11-16 06:25] LABS: WHITE BLOOD COUNT 5.7 K/uL (4.8-10.8)
[2017-11-16 06:28] LABS: BLOOD UREA NITROGEN 23 mg/dl (7-17); CALCIUM 10.3 mg/dL (8.4-10.2); GFR AFRICAN-AMERICAN > 60; GFR NON-AFRICAN AMERICAN > 60
[2017-11-16] MEDS: Enoxaparin 40 mg Syringe SC SCH (08:49)
[2017-11-16] MEDS: Pantoprazole 40 mg EC Tab PO SCH (08:50)
--- NOTE | 2017-11-16 10:43 | CP.PCM.PN ---
Subjective - Date & Time of Evaluation Date of Evaluation: 11/16/17 Time of Evaluation: 10:42 - Subjective Subjective: TOLERATING THERAPIES WELL NO NEW COMPLAINTS NO CP SOB CALF TENDERNESS HD STABLE NAD Objective - Vital Signs/Intake and Output Vital Signs (last 24 hours): Temp Pulse Resp BP Pulse Ox 97.9 F 67 21 114/71 97 11/16/17 08:27 11/16/17 08:49 11/16/17 08:27 11/16/17 08:49 11/16/17 08:27 Constitutional- cooperative, awake, alert. Head- NCAT, PERRL Eye- PERRL, normal accommodation ENT- normal exam, MMM. Neck- normal inspection, supple, no JVD Respiratory- CTAB, no wheezes rales rhonchi Cardiovascular- RRR, +S1, +S2 no MRG GI/Abdominal- normal bowel sounds, soft Skin- warm, dry Extremities Exam- normal capillary refill, normal inspection Neurological Exam- alert, oriented Psych- normal mood, normal affect - Medications Medications: Current Medications Acetaminophen (Tylenol 325mg Tab) 650 mg PO Q4 PRN PRN Reason: Pain, moderate (4-7) Last Admin: 11/15/17 05:24 Dose: 650 mg Al Hydrox/Mg Hydrox/Simethicone (Maalox Plus 30 Ml) 30 ml PO Q4 PRN PRN Reason: .Abdominal pain Last Admin: 11/13/17 21:01 Dose: 30 ml Aspirin (Ecotrin) 81 mg PO DAILY [facility] Last Admin: 11/16/17 08:50 Dose: 81 mg Atorvastatin Calcium (Lipitor) 20 mg PO HS [facility] Last Admin: 11/15/17 21:06 Dose: 20 mg Clopidogrel Bisulfate (Plavix) 75 mg PO DAILY [facility] Last Admin: 11/16/17 08:50 Dose: 75 mg Enoxaparin Sodium (Lovenox) 40 mg SC DAILY [facility] PRN Reason: Protocol Last Admin: 11/16/17 08:49 Dose: 40 mg Ibuprofen (Motrin Tab) 600 mg PO Q6 PRN PRN Reason: Pain, Mild (1-3) Metoprolol Tartrate (Lopressor) 25 mg PO Q12 [facility] Last Admin: 11/16/17 08:49 Dose: 25 mg Pantoprazole Sodium (Protonix Ec Tab) 40 mg PO DAILY [facility] Last Admin: 11/16/17 08:50 Dose: 40 mg Tramadol HCl (Ultram) 50 mg PO Q6H PRN PRN Reason: Pain, severe (8-10) Last Admin: 11/16/17 09:58 Dose: 50 mg - Labs Labs: 11/16/17 06:05 11/16/17 06:05 Assessment and Plan - Assessment and Plan (Free Text) Plan: 67 year old female PMH Myasthenia Gravis, Non Hodgkins Lymphoma s/p chemo, hx of URI for one week (neg CXR), presents to the ER on 11/03/2017 after 2 mechanical falls, each time after attempting to open her cat food. The first episode 911 was called however she refused care, the second time she fell, neighbors responded. Patient states she did not lose consciousness prior to falling, and complains of some acute moderate sharp/aching pain in her knee and ankle. XR/CT imaging in ER have all been negative. In ER pt found to have WBC 13k, UA- some hyaline casts but no evidence of UTI. UCx pending. CT head showed possible evolving ischemia and MRI was completed, showing right basal ganglia infarct. Patient did not exhibit any bulbar weakness, or respiratory symptoms/difficulty. No focal neuro deficits, AAOx3. Mild Azotemia. Neuro consulted, Dr. Hogan. HD stable. The patient was observed overnight on telemetry without changes. On 11/04, MRI demonstrated basal ganglia acute/subacute infarct. Pt seen by PT and recommends physical therapy. The patient was discharged to TCU for further PT/OT and for further workup by Dr. Hogan, neurology in stable condition. On 11/09/2017, after an uncomplicated stay in TCU, the patient was discharged to acute rehabilitation for further physical therapy and occupational therapy. Today. 11/10/2017, is her last day of her antibiotic therapy for UTI. She is complaining of occasional pain in her hips bilaterally and neck pain but it is controlled with Motrin. She has no other complaints today. She says therapies are going well. The patient's son Omar was called at [phone] and voicemail was left updating him on the status of the patient. To note: incidental soft tissue mass/density noted on CT and MRI. Physical examination did not show any tenderness, swelling, erythema, or palpable mass. May follow up as outpatient with Dermatology. CVA Fall x2 while trying to open her cat food Neuro consult Dr. Hogan appreciated and followed. ASA, PLAVIX, STATIN Orthostatic BP reads pending CT head showed possible evolving area of ischemia MRI read +basal ganglia acute/subacute CVA Echo complete Carotid dopplers complete repeat lytes For further Pt/OT in acute rehab Physiatry consultation Myasthenia Gravis Continue PT/OT No bulbar weakness or respiratory symptoms Fall all imaging negative supportive care and pain control Azotemia BUN 20 NS @ 125cc/hr monitor UTI Macrobid BID course completed 11/10/2017 UCX: Multiple species, likely contamination. VTE ppx Lovenox
--- NOTE | 2017-11-16 11:11 | CP.PCM.PN ---
Subjective - Date & Time of Evaluation Date of Evaluation: 11/16/17 Time of Evaluation: 11:07 - Subjective Subjective: Ms. Castillo was seen and examined at the bedside. She is alert, oriented. She is able to answer questions and follow commands. She remains with right arm drift. She has a left leg cast. She is up in her wheelchair with a good posture. There was no untoward event overnight. Objective - Vital Signs/Intake and Output Vital Signs (last 24 hours): Temp Pulse Resp BP Pulse Ox 97.9 F 67 21 114/71 97 11/16/17 08:27 11/16/17 08:49 11/16/17 08:27 11/16/17 08:49 11/16/17 08:27 - Medications Medications: Current Medications Acetaminophen (Tylenol 325mg Tab) 650 mg PO Q4 PRN PRN Reason: Pain, moderate (4-7) Last Admin: 11/15/17 05:24 Dose: 650 mg Al Hydrox/Mg Hydrox/Simethicone (Maalox Plus 30 Ml) 30 ml PO Q4 PRN PRN Reason: .Abdominal pain Last Admin: 11/13/17 21:01 Dose: 30 ml Aspirin (Ecotrin) 81 mg PO DAILY [facility] Last Admin: 11/16/17 08:50 Dose: 81 mg Atorvastatin Calcium (Lipitor) 20 mg PO HS [facility] Last Admin: 11/15/17 21:06 Dose: 20 mg Clopidogrel Bisulfate (Plavix) 75 mg PO DAILY [facility] Last Admin: 11/16/17 08:50 Dose: 75 mg Enoxaparin Sodium (Lovenox) 40 mg SC DAILY [facility] PRN Reason: Protocol Last Admin: 11/16/17 08:49 Dose: 40 mg Ibuprofen (Motrin Tab) 600 mg PO Q6 PRN PRN Reason: Pain, Mild (1-3) Metoprolol Tartrate (Lopressor) 25 mg PO Q12 [facility] Last Admin: 11/16/17 08:49 Dose: 25 mg Pantoprazole Sodium (Protonix Ec Tab) 40 mg PO DAILY [facility] Last Admin: 11/16/17 08:50 Dose: 40 mg Tramadol HCl (Ultram) 50 mg PO Q6H PRN PRN Reason: Pain, severe (8-10) Last Admin: 11/16/17 09:58 Dose: 50 mg - Labs Labs: 11/16/17 06:05 11/16/17 06:05 - Constitutional Appears: No Acute Distress - Head Exam Head Exam: NORMAL INSPECTION - Neurological Exam Neurological Exam: Alert, Awake Neuro motor strength exam: Left Upper Extremity: 5, Right Upper Extremity: 5, Left Lower Extremity: 4, Right Lower Extremity: 5 Additional comments: Neurological unchanged from previous examination. Assessment and Plan (1) CVA (cerebral vascular accident) Assessment & Plan: Case discussed with Dr. Bowens, continue all medical, physical, and occupational therapies. There is no new recommendations from neurology. Status: Acute
--- NOTE | 2017-11-16 11:22 | CP.PCM.PN ---
Subjective - Date & Time of Evaluation Date of Evaluation: 11/15/17 Time of Evaluation: 18:30 - Subjective Subjective: no acute complaints at present Objective - Vital Signs/Intake and Output Vital Signs (last 24 hours): Temp Pulse Resp BP Pulse Ox 97.9 F 67 21 114/71 97 11/16/17 08:27 11/16/17 08:49 11/16/17 08:27 11/16/17 08:49 11/16/17 08:27 - Medications Medications: Current Medications Acetaminophen (Tylenol 325mg Tab) 650 mg PO Q4 PRN PRN Reason: Pain, moderate (4-7) Last Admin: 11/15/17 05:24 Dose: 650 mg Al Hydrox/Mg Hydrox/Simethicone (Maalox Plus 30 Ml) 30 ml PO Q4 PRN PRN Reason: .Abdominal pain Last Admin: 11/13/17 21:01 Dose: 30 ml Aspirin (Ecotrin) 81 mg PO DAILY [facility] Last Admin: 11/16/17 08:50 Dose: 81 mg Atorvastatin Calcium (Lipitor) 20 mg PO HS [facility] Last Admin: 11/15/17 21:06 Dose: 20 mg Clopidogrel Bisulfate (Plavix) 75 mg PO DAILY [facility] Last Admin: 11/16/17 08:50 Dose: 75 mg Enoxaparin Sodium (Lovenox) 40 mg SC DAILY [facility] PRN Reason: Protocol Last Admin: 11/16/17 08:49 Dose: 40 mg Ibuprofen (Motrin Tab) 600 mg PO Q6 PRN PRN Reason: Pain, Mild (1-3) Metoprolol Tartrate (Lopressor) 25 mg PO Q12 [facility] Last Admin: 11/16/17 08:49 Dose: 25 mg Pantoprazole Sodium (Protonix Ec Tab) 40 mg PO DAILY [facility] Last Admin: 11/16/17 08:50 Dose: 40 mg Tramadol HCl (Ultram) 50 mg PO Q6H PRN PRN Reason: Pain, severe (8-10) Last Admin: 11/16/17 09:58 Dose: 50 mg - Labs Labs: 11/16/17 06:05 11/16/17 06:05 - Head Exam Head Exam: ATRAUMATIC, NORMAL INSPECTION, NORMOCEPHALIC - Eye Exam Eye Exam: EOMI, Normal appearance, PERRL Pupil Exam: NORMAL ACCOMODATION - ENT Exam ENT Exam: Mucous Membranes Moist, Normal Exam - Neck Exam Neck Exam: Full ROM, Normal Inspection - Respiratory Exam Respiratory Exam: NORMAL BREATHING PATTERN - Cardiovascular Exam Cardiovascular Exam: REGULAR RHYTHM - GI/Abdominal Exam GI & Abdominal Exam: Soft, Normal Bowel Sounds - Rectal Exam Rectal Exam: NORMAL INSPECTION - Exam External exam: NORMAL EXTERNAL EXAM - Extremities Exam Extremities Exam: Full ROM, Normal Capillary Refill, Normal Inspection - Back Exam Back Exam: NORMAL INSPECTION - Neurological Exam Neurological Exam: Alert, Awake Neuro motor strength exam: Left Upper Extremity: 3, Right Upper Extremity: 3, Left Lower Extremity: 2/1 (left foot brace), Right Lower Extremity: 3 - Psychiatric Exam Psychiatric exam: Normal Affect, Normal Mood - Skin Skin Exam: Dry, Intact Assessment and Plan (1) CVA (cerebral vascular accident) Assessment & Plan: plan for physical ,ocupational and rec therapy podiatry follow up Status: Acute (2) Syncope Status: Acute
--- NOTE | 2017-11-16 11:27 | CP.PCM.PN ---
Subjective - Date & Time of Evaluation Date of Evaluation: 11/16/17 Time of Evaluation: 10:00 - Subjective Subjective: no acute complaints at present, weakness of the left foot Objective - Vital Signs/Intake and Output Vital Signs (last 24 hours): Temp Pulse Resp BP Pulse Ox 97.9 F 67 21 114/71 97 11/16/17 08:27 11/16/17 08:49 11/16/17 08:27 11/16/17 08:49 11/16/17 08:27 - Medications Medications: Current Medications Acetaminophen (Tylenol 325mg Tab) 650 mg PO Q4 PRN PRN Reason: Pain, moderate (4-7) Last Admin: 11/15/17 05:24 Dose: 650 mg Al Hydrox/Mg Hydrox/Simethicone (Maalox Plus 30 Ml) 30 ml PO Q4 PRN PRN Reason: .Abdominal pain Last Admin: 11/13/17 21:01 Dose: 30 ml Aspirin (Ecotrin) 81 mg PO DAILY [facility] Last Admin: 11/16/17 08:50 Dose: 81 mg Atorvastatin Calcium (Lipitor) 20 mg PO HS [facility] Last Admin: 11/15/17 21:06 Dose: 20 mg Clopidogrel Bisulfate (Plavix) 75 mg PO DAILY [facility] Last Admin: 11/16/17 08:50 Dose: 75 mg Enoxaparin Sodium (Lovenox) 40 mg SC DAILY [facility] PRN Reason: Protocol Last Admin: 11/16/17 08:49 Dose: 40 mg Ibuprofen (Motrin Tab) 600 mg PO Q6 PRN PRN Reason: Pain, Mild (1-3) Metoprolol Tartrate (Lopressor) 25 mg PO Q12 [facility] Last Admin: 11/16/17 08:49 Dose: 25 mg Pantoprazole Sodium (Protonix Ec Tab) 40 mg PO DAILY [facility] Last Admin: 11/16/17 08:50 Dose: 40 mg Tramadol HCl (Ultram) 50 mg PO Q6H PRN PRN Reason: Pain, severe (8-10) Last Admin: 11/16/17 09:58 Dose: 50 mg - Labs Labs: 11/16/17 06:05 11/16/17 06:05 - Head Exam Head Exam: ATRAUMATIC, NORMAL INSPECTION, NORMOCEPHALIC - Eye Exam Eye Exam: EOMI, Normal appearance, PERRL Pupil Exam: NORMAL ACCOMODATION - ENT Exam ENT Exam: Mucous Membranes Moist, Normal Exam - Neck Exam Neck Exam: Normal Inspection - Respiratory Exam Respiratory Exam: NORMAL BREATHING PATTERN - Cardiovascular Exam Cardiovascular Exam: REGULAR RHYTHM - GI/Abdominal Exam GI & Abdominal Exam: Soft, Normal Bowel Sounds - Rectal Exam Rectal Exam: NORMAL INSPECTION - Exam External exam: NORMAL EXTERNAL EXAM - Extremities Exam Extremities Exam: Normal Capillary Refill, Normal Inspection - Back Exam Back Exam: NORMAL INSPECTION - Neurological Exam Neurological Exam: Alert, Awake Neuro motor strength exam: Left Upper Extremity: 3, Right Upper Extremity: 3, Left Lower Extremity: 2/1 (left foot with brace), Right Lower Extremity: 3 - Psychiatric Exam Psychiatric exam: Normal Affect, Normal Mood - Skin Skin Exam: Dry, Intact Assessment and Plan (1) CVA (cerebral vascular accident) Assessment & Plan: plan for physical, occupational and rec therapy to do team conference to discuss Dc planning Status: Acute (2) Syncope Status: Acute
--- NOTE | 2017-11-16 12:02 | CP.PCM.PN ---
Subjective - Date & Time of Evaluation Date of Evaluation: 11/16/17 Time of Evaluation: 14:46 - Subjective Subjective: 67 y/o female seen at bedside this morning with attending Dr. Lane regarding left ankle fracture. Pt remains in posterior splint to LLE which is clean/dry/ intact. She states she feels well today and eager for therapy. She states she is understanding that she cannot bear weight to the left lower extremity. Denies any other pedal complaints. Denies F/C/N/V/CP/SOB Objective - Vital Signs/Intake and Output Vital Signs (last 24 hours): Temp Pulse Resp BP Pulse Ox 97.9 F 67 21 114/71 97 11/16/17 08:27 11/16/17 08:49 11/16/17 08:27 11/16/17 08:49 11/16/17 08:27 - Medications Medications: Current Medications Acetaminophen (Tylenol 325mg Tab) 650 mg PO Q4 PRN PRN Reason: Pain, moderate (4-7) Last Admin: 11/15/17 05:24 Dose: 650 mg Al Hydrox/Mg Hydrox/Simethicone (Maalox Plus 30 Ml) 30 ml PO Q4 PRN PRN Reason: .Abdominal pain Last Admin: 11/13/17 21:01 Dose: 30 ml Aspirin (Ecotrin) 81 mg PO DAILY [facility] Last Admin: 11/16/17 08:50 Dose: 81 mg Atorvastatin Calcium (Lipitor) 20 mg PO HS [facility] Last Admin: 11/15/17 21:06 Dose: 20 mg Clopidogrel Bisulfate (Plavix) 75 mg PO DAILY [facility] Last Admin: 11/16/17 08:50 Dose: 75 mg Enoxaparin Sodium (Lovenox) 40 mg SC DAILY [facility] PRN Reason: Protocol Last Admin: 11/16/17 08:49 Dose: 40 mg Ibuprofen (Motrin Tab) 600 mg PO Q6 PRN PRN Reason: Pain, Mild (1-3) Metoprolol Tartrate (Lopressor) 25 mg PO Q12 [facility] Last Admin: 11/16/17 08:49 Dose: 25 mg Pantoprazole Sodium (Protonix Ec Tab) 40 mg PO DAILY [facility] Last Admin: 11/16/17 08:50 Dose: 40 mg Tramadol HCl (Ultram) 50 mg PO Q6H PRN PRN Reason: Pain, severe (8-10) Last Admin: 11/16/17 09:58 Dose: 50 mg - Labs Labs: 11/16/17 06:05 11/16/17 06:05 - Constitutional Appears: Well, Non-toxic, No Acute Distress - Extremities Exam Additional comments: LLE with posterior splint clean, dry and intact Pt able to wiggle toes CFT < 3 sec to all digits (-) for calf tenderness - Neurological Exam Neurological Exam: Alert, Awake - Psychiatric Exam Psychiatric exam: Normal Affect, Normal Mood Assessment and Plan - Assessment and Plan (Free Text) Assessment: 67 y/o female with PMHx of myasthenia gravis, non-Hodgkins lymphoma s/p basal ganglia infarct seen in acute rehab for left distal fibula fracture, nondislocated with mild posterior displacement noted Plan: Pt seen and evaluated at bedside with attending Dr. Lane Xrays of left ankle on 11/11/17 revealed mildly posteriorly displaced lateral malleolar fracture; no dislocation or subluxation Posterior splint remains intact to LLE; pt to remain NWB with walker BK cast to be applied tomorrow for definitive nonsurgical treatment of fracture Podiatry will continue to follow
--- NOTE | 2017-11-16 12:10 | PSY.TMCNF ---
Nursing - Vital Signs Vital Signs (Last 8 hours): Vital Signs 11/16/17 11/16/17 08:27 08:49 Temperature 97.9 F Pulse Rate 67 67 Respiratory 21 Rate Blood Pressure 114/71 114/71 O2 Sat by Pulse 97 Oximetry Pain: 10 - Medications/Other Issues Comment: Pt at moderate nutritional risk. Goal:1. Pt to consume 75-100% of meals. Follow-up due on 11/17/2017 - Bladder Management Bladder Pattern: Normal, Incontinent Voiding Method: Bedpan, Diaper - Bowel Management Bowel Pattern: Incontinent - Goals/Time Frame Comments: Pt was seen awake and alert sitting in her wheelchair in her room. Pt agreeable to go to recreation room. Pt was able to identify her leisure interests such as sewing, crafts, and cooking. Pt demonstrated to recreation therapist pictures of dolls that pt knits at home as well as other projects she enjoys doing. Pt reported that she lives alone, has a cat, and cooks for herself. Pt's son lives in [place] and other son lives in [place]. Pt reported that she has a signficant other that lives in [facility]. Pt presented with lethargy at times as she was closing her eyes and pt c/o "they worked me out a lot today." Pt engaged in discussions and required visual cues on how to utilize cell phone. Pt c/o no pain during session. Pt returned to room, placed call oconnor within reach and encouraged pt to stay out of bed until after pt eats dinner. Pt verbalized understanding, RN's aware that pt is in room. Physical Therapy - Bed Mobility Bed Mobility: Moderate Assistance - Transfers Wheelchair to Mat: Minimal Assistance Sit to Stand: Moderate Assistance, Maximum Assistance - Ambulation Level of Assistance: Not Tested - Stair Negotiation Stairs: Level of Assistance: Not Tested - Standing Balance Static Stand: Minimal Assistance Dynamic Stand: Single leg stance, Minimal Assistance - Pain Pain (assessed during therapy session): 9 Management Techniques: Medication, Ice Comment: L ankle - Insight/Carryover Insight/Carryover: Fair - Patient/Family Education Comment: Pt education for maintaining weight bearing status throughout functional mobiltiy skills. - Assessment/Plan Assessment: Pt is NWB LLE s/p findings of acute ankle fx ; PT goals have been updated accordingly. Pt currently requires mod A for bed mobility, min A for lateral transfers using transfer board, mod/max A for sit < > stand transfers; trialed hopping, only able to take 1-2 hops with max A in parallel bars. Pt is able to propel WC with sueprvision for straight path, requirs min A to maneuver turns. Pt will cont. to benefit from skilled PT intervention to address deficits and maximize functional independence. Recommend d/.c to [facility]. - Goals Timeframe: 2 weeks Goals: Sit < > supine mod I. BEd < > WC transfers using transfer board with supervision. Sit < > stand transfers with CGA maintaining NWB LLE. Propel WC 200 ft with supervision - Provider Therapist: alonso License Number: [id number] Occupational Therapy - Arousal/Attention/Orientation Patient Orientation: Person, Place - ADL/IADL Self Feeding: Supervision, Verbal Cues, Set-up Help Grooming: Supervision, Verbal Cues, Set-up Help Dressing-Upper Extremity: Minimal Assistance Dressing-Lower Extremity: Dependent - Sitting Balance Static Sitting: Contact Guard Assist Dynamic Sitting: Minimal Assistance, Moderate Assistance - Transfers Wheelchair to Bed Transfers: Maximum Assistance, Dependent Toilet Transfers: Maximum Assistance, Dependent - Upper Extremity Status Right Upper Extremity Comment: AROM WFL with exception of Digits 3-5flexed at MCP/PIP/DIP however passive range is WFL when stretched, MMT grossly 3+/5 Left Upper Extremity Comment: AROM WFL with exception of Digits 3-5flexed at MCP /PIP/DIP however passive range is WFL when stretched, MMT grossly 3+/5 - Pain Pain (assessed during therapy session): 9 Alleviating Techniques: Medication, Ice Comment: L ankle - Insight/Carryover Insight/Carryover: Fair - Patient/Family Education Comment: Pt education for maintaining weight bearing status throughout functional mobiltiy skills. - Assessment/Plan Assessment: Pt is NWB LLE s/p findings of acute ankle fx ; PT goals have been updated accordingly. Pt currently requires mod A for bed mobility, min A for lateral transfers using transfer board, mod/max A for sit < > stand transfers; trialed hopping, only able to take 1-2 hops with max A in parallel bars. Pt is able to propel WC with sueprvision for straight path, requirs min A to maneuver turns. Pt will cont. to benefit from skilled PT intervention to address deficits and maximize functional independence. Recommend d/.c to [facility]. - Goals Timeframe: 2 weeks Goals: Sit < > supine mod I. BEd < > WC transfers using transfer board with supervision. Sit < > stand transfers with CGA maintaining NWB LLE. Propel WC 200 ft with supervision - Provider Therapist: Yahaira Hilliard, OTR/L Speech Therapy - Consult Information Patient on Program: Yes Medical Diagnosis: CVA Treatment Diagnosis: cognitive-linguistic deficits - Assessment Problem Solving Impairment: Mild Memory Impairment: Mild - Plan Assessment: Pt is NWB LLE s/p findings of acute ankle fx ; PT goals have been updated accordingly. Pt currently requires mod A for bed mobility, min A for lateral transfers using transfer board, mod/max A for sit < > stand transfers; trialed hopping, only able to take 1-2 hops with max A in parallel bars. Pt is able to propel WC with sueprvision for straight path, requirs min A to maneuver turns. Pt will cont. to benefit from skilled PT intervention to address deficits and maximize functional independence. Recommend d/.c to [facility]. - Provider Therapist: Silvia Patterson License Number: [id number] Recreational Therapy - Participation Participation: Participates in Individual and/or Group Sessions, Monitors His/ Her Own Leisure Time - Attendance Attendance: Daily - Activities Leisure Activities: Television - Socialization Level of Socialization: Initiates/interacts freely with care givers and peer - Diversional Time Diversional Time: television - Assessment Assessment/Plan: Pt is NWB LLE s/p findings of acute ankle fx ; PT goals have been updated accordingly. Pt currently requires mod A for bed mobility, min A for lateral transfers using transfer board, mod/max A for sit < > stand transfers; trialed hopping, only able to take 1-2 hops with max A in parallel bars. Pt is able to propel WC with sueprvision for straight path, requirs min A to maneuver turns. Pt will cont. to benefit from skilled PT intervention to address deficits and maximize functional independence. Recommend d/.c to [facility]. - Provider Therapist: Radha Monte, [employer] #[id number] Nutrition - Current Diet Current Diet/ Supplement/ Feedings: Regular diet - Appetite Percent Meal Consumed: 50-74% - Assessment/Goals/Time Frame Assessment/Goals/Time Frame: Pt at moderate nutritional risk. Goal:1. Pt to consume 75-100% of meals. Follow-up due on 11/17/2017 - Provider Provider: Carlyn Lassiter RD Case Management - Discharge Plan Discharge Plan: Home with significant other/family Rehabilitation Plan - Treatment Plan Treatment Plan: Physical Therapy, Occupational Therapy, Speech, Dietary, Patient /Family Education - Recommendation Recommendation: Physical Therapy, Occupational Therapy, Speech, Dietary, Patient /Family Education - Discharge Plan Discharge to: Subacute
[2017-11-17] MEDS: Enoxaparin 40 mg Syringe SC SCH (08:34)
[2017-11-17] MEDS: Pantoprazole 40 mg EC Tab PO SCH (08:34)
--- NOTE | 2017-11-17 11:47 | CP.PCM.PN ---
Subjective - Date & Time of Evaluation Date of Evaluation: 11/17/17 Time of Evaluation: 11:45 - Subjective Subjective: Mr. Castillo was seen and examined at the bedside. She is alert, oriented and denies any headache, dizziness, lightheadedness, blurred vision, nausea, or vomiting. She is able to follow simple commands and answer questions appropriately. There was no untoward events overnight. Objective - Vital Signs/Intake and Output Vital Signs (last 24 hours): Temp Pulse Resp BP Pulse Ox 97.7 F 59 L 18 119/69 97 11/17/17 08:32 11/17/17 08:34 11/17/17 08:32 11/17/17 08:34 11/17/17 08:32 - Medications Medications: Current Medications Acetaminophen (Tylenol 325mg Tab) 650 mg PO Q4 PRN PRN Reason: Pain, moderate (4-7) Last Admin: 11/15/17 05:24 Dose: 650 mg Al Hydrox/Mg Hydrox/Simethicone (Maalox Plus 30 Ml) 30 ml PO Q4 PRN PRN Reason: .Abdominal pain Last Admin: 11/13/17 21:01 Dose: 30 ml Aspirin (Ecotrin) 81 mg PO DAILY [facility] Last Admin: 11/17/17 08:33 Dose: 81 mg Atorvastatin Calcium (Lipitor) 20 mg PO HS [facility] Last Admin: 11/16/17 21:34 Dose: 20 mg Clopidogrel Bisulfate (Plavix) 75 mg PO DAILY [facility] Last Admin: 11/17/17 08:34 Dose: 75 mg Enoxaparin Sodium (Lovenox) 40 mg SC DAILY [facility] PRN Reason: Protocol Last Admin: 11/17/17 08:34 Dose: 40 mg Ibuprofen (Motrin Tab) 600 mg PO Q6 PRN PRN Reason: Pain, Mild (1-3) Metoprolol Tartrate (Lopressor) 25 mg PO Q12 [facility] Last Admin: 11/17/17 08:34 Dose: Not Given Pantoprazole Sodium (Protonix Ec Tab) 40 mg PO DAILY [facility] Last Admin: 11/17/17 08:34 Dose: 40 mg Tramadol HCl (Ultram) 50 mg PO Q6H PRN PRN Reason: Pain, severe (8-10) Last Admin: 11/16/17 20:17 Dose: 50 mg - Labs Labs: 11/16/17 06:05 11/16/17 06:05 - Constitutional Appears: No Acute Distress - Head Exam Head Exam: NORMAL INSPECTION - Neurological Exam Neurological Exam: Alert, Awake, Oriented x3 Neuro motor strength exam: Left Upper Extremity: 4, Right Upper Extremity: 4, Left Lower Extremity: 2/1, Right Lower Extremity: 4 Additional comments: Neurological unchanged from previous examination. Assessment and Plan (1) CVA (cerebral vascular accident) Assessment & Plan: Case discussed with Dr. Bowens, continue all current medical, physical, occupational, and speech therapies. There is no new recommendations from neurology. Status: Acute
[2017-11-18] MEDS: Enoxaparin 40 mg Syringe SC SCH (09:17)
[2017-11-18] MEDS: Pantoprazole 40 mg EC Tab PO SCH (09:18)
--- NOTE | 2017-11-18 11:57 | CP.PCM.PN ---
Subjective - Date & Time of Evaluation Date of Evaluation: 11/18/17 Time of Evaluation: 11:20 - Subjective Subjective: Patient seen and examined at bedside. Is in much better spirits than when I have seen her in the past. C/o of only minimal pain with therapies; no pain at rest. No new complaints. Denies cp/sob/calf tenderness Hemodynamically stable. Objective - Vital Signs/Intake and Output Vital Signs (last 24 hours): Temp Pulse Resp BP Pulse Ox 97.7 F 53 L 20 131/58 L 96 11/18/17 07:43 11/18/17 09:16 11/18/17 07:43 11/18/17 09:16 11/18/17 07:43 - Medications Medications: Current Medications Acetaminophen (Tylenol 325mg Tab) 650 mg PO Q4 PRN PRN Reason: Pain, moderate (4-7) Last Admin: 11/15/17 05:24 Dose: 650 mg Al Hydrox/Mg Hydrox/Simethicone (Maalox Plus 30 Ml) 30 ml PO Q4 PRN PRN Reason: .Abdominal pain Last Admin: 11/13/17 21:01 Dose: 30 ml Aspirin (Ecotrin) 81 mg PO DAILY [facility] Last Admin: 11/18/17 09:18 Dose: 81 mg Atorvastatin Calcium (Lipitor) 20 mg PO HS [facility] Last Admin: 11/17/17 21:37 Dose: 20 mg Clopidogrel Bisulfate (Plavix) 75 mg PO DAILY [facility] Last Admin: 11/18/17 09:18 Dose: 75 mg Enoxaparin Sodium (Lovenox) 40 mg SC DAILY [facility] PRN Reason: Protocol Last Admin: 11/18/17 09:17 Dose: 40 mg Ibuprofen (Motrin Tab) 600 mg PO Q6 PRN PRN Reason: Pain, Mild (1-3) Metoprolol Tartrate (Lopressor) 25 mg PO Q12 [facility] Last Admin: 11/18/17 09:16 Dose: Not Given Pantoprazole Sodium (Protonix Ec Tab) 40 mg PO DAILY [facility] Last Admin: 11/18/17 09:18 Dose: 40 mg Tramadol HCl (Ultram) 50 mg PO Q6H PRN PRN Reason: Pain, severe (8-10) Last Admin: 11/17/17 18:16 Dose: 50 mg - Labs Labs: 11/16/17 06:05 11/16/17 06:05 - Additional Findings Additional findings: Constitutional- cooperative, awake, alert. Head- NCAT, PERRL Eye- PERRL, normal accommodation ENT- normal exam, MMM. Neck- normal inspection, supple, no JVD Respiratory- CTAB, no wheezes rales rhonchi Cardiovascular- RRR, +S1, +S2 no MRG GI/Abdominal- normal bowel sounds, soft Skin- warm, dry Extremities Exam- + Left leg in posterior splint. Able to wiggle her toes. Normal capillary refill Neurological Exam- alert, oriented Psych- normal mood, normal affect Assessment and Plan - Assessment and Plan (Free Text) Plan: 67 year old female PMH Myasthenia Gravis, Non Hodgkins Lymphoma s/p chemo, hx of URI for one week (neg CXR), presents to the ER on 11/03/2017 after 2 mechanical falls, each time after attempting to open her cat food. The first episode 911 was called however she refused care, the second time she fell, neighbors responded. Patient states she did not lose consciousness prior to falling, and complains of some acute moderate sharp/aching pain in her knee and ankle. XR/CT imaging in ER have all been negative. In ER pt found to have WBC 13k, UA- some hyaline casts but no evidence of UTI. UCx pending. CT head showed possible evolving ischemia and MRI was completed, showing right basal ganglia infarct. Patient did not exhibit any bulbar weakness, or respiratory symptoms/difficulty. No focal neuro deficits, AAOx3. Mild Azotemia. Neuro consulted, Dr. Hogan. HD stable. The patient was observed overnight on telemetry without changes. On 11/04, MRI demonstrated basal ganglia acute/subacute infarct. Pt seen by PT and recommends physical therapy. The patient was discharged to TCU for further PT/OT and for further workup by Dr. Hogan, neurology in stable condition. On 11/09/2017, after an uncomplicated stay in TCU, the patient was discharged to acute rehabilitation for further physical therapy and occupational therapy. Today. 11/10/2017, is her last day of her antibiotic therapy for UTI. She is complaining of occasional pain in her hips bilaterally and neck pain but it is controlled with Motrin. She has no other complaints today. She says therapies are going well. The patient's son Omar can be reached at [phone] for any new developments. To note: incidental soft tissue mass/density noted on CT and MRI. Physical examination did not show any tenderness, swelling, erythema, or palpable mass. May follow up as outpatient with Dermatology. CVA Fall x2 while trying to open her cat food Neuro consult Dr. Hogan appreciated and followed. ASA, PLAVIX, STATIN CT head showed possible evolving area of ischemia MRI read +basal ganglia acute/subacute CVA Echo complete Carotid dopplers complete For further Pt/OT in acute rehab Physiatry consultation Myasthenia Gravis Continue PT/OT No bulbar weakness or respiratory symptoms Left distal fibular fracture, nondislocated wtih mild posterior displacement noted. Podiatry consultation with Dr. Lane appreciated BK cast as per podiatry Non-weight bearing to left foot supportive care and pain control Azotemia- resolved BUN 20 monitor UTI Macrobid BID course completed 11/10/2017 UCX: Multiple species, likely contamination. VTE ppx Lovenox
--- NOTE | 2017-11-18 12:24 | RAD ---
PROCEDURE: Left Ankle Radiographs. HISTORY: left fibula fx COMPARISON: Left ankle radiographs 11/11/2017. FINDINGS: BONES: No interval changes appreciated in an oblique fracture of the lateral malleolus/ distal left fibula. Cast obscures fine bony and soft-tissue detail. No definite callus formation is appreciated this time. No interval additional fracture identified at this time. JOINTS: Mild degenerative changes seen at the ankle joints diffusely as well as at the visualize midfoot incidentally. Local soft tissues appears stable. The ankle mortise appears intact once again. OTHER FINDINGS: None. IMPRESSION: Stable oblique fracture lateral malleolus/ distal fibula left ankle. No definite callus formation appreciable this time.
--- NOTE | 2017-11-18 12:24 | CP.PCM.PN ---
Subjective - Date & Time of Evaluation Date of Evaluation: 11/18/17 Time of Evaluation: 12:21 - Subjective Subjective: Ms. Castillo was seen and examined at the bedside. She is alert, oriented and able to answer few questions appropriately. She is able to follow simple commands. She is participating with her various therapies without any incident. There was no untoward events overnight. Objective - Vital Signs/Intake and Output Vital Signs (last 24 hours): Temp Pulse Resp BP Pulse Ox 97.7 F 53 L 20 131/58 L 96 11/18/17 07:43 11/18/17 09:16 11/18/17 07:43 11/18/17 09:16 11/18/17 07:43 - Medications Medications: Current Medications Acetaminophen (Tylenol 325mg Tab) 650 mg PO Q4 PRN PRN Reason: Pain, moderate (4-7) Last Admin: 11/15/17 05:24 Dose: 650 mg Al Hydrox/Mg Hydrox/Simethicone (Maalox Plus 30 Ml) 30 ml PO Q4 PRN PRN Reason: .Abdominal pain Last Admin: 11/13/17 21:01 Dose: 30 ml Aspirin (Ecotrin) 81 mg PO DAILY [facility] Last Admin: 11/18/17 09:18 Dose: 81 mg Atorvastatin Calcium (Lipitor) 20 mg PO HS [facility] Last Admin: 11/17/17 21:37 Dose: 20 mg Clopidogrel Bisulfate (Plavix) 75 mg PO DAILY [facility] Last Admin: 11/18/17 09:18 Dose: 75 mg Enoxaparin Sodium (Lovenox) 40 mg SC DAILY [facility] PRN Reason: Protocol Last Admin: 11/18/17 09:17 Dose: 40 mg Ibuprofen (Motrin Tab) 600 mg PO Q6 PRN PRN Reason: Pain, Mild (1-3) Metoprolol Tartrate (Lopressor) 25 mg PO Q12 [facility] Last Admin: 11/18/17 09:16 Dose: Not Given Pantoprazole Sodium (Protonix Ec Tab) 40 mg PO DAILY [facility] Last Admin: 11/18/17 09:18 Dose: 40 mg Tramadol HCl (Ultram) 50 mg PO Q6H PRN PRN Reason: Pain, severe (8-10) Last Admin: 11/17/17 18:16 Dose: 50 mg - Labs Labs: 11/16/17 06:05 11/16/17 06:05 - Constitutional Appears: No Acute Distress - Head Exam Head Exam: NORMAL INSPECTION - Neurological Exam Neurological Exam: Alert, Awake Neuro motor strength exam: Left Upper Extremity: 5, Right Upper Extremity: 5, Left Lower Extremity: 4, Right Lower Extremity: 4 Additional comments: Neurological unchanged from previous examination. Assessment and Plan (1) CVA (cerebral vascular accident) Assessment & Plan: Case discussed with dr. Bowens, continue all current medical. physical, occupational therapies. There is no new recommendations from neurology. Status: Acute
--- NOTE | 2017-11-18 12:49 | CP.PCM.PN ---
Subjective - Date & Time of Evaluation Date of Evaluation: 11/18/17 Time of Evaluation: 08:30 - Subjective Subjective: patient with mild left leg discomfort Objective - Vital Signs/Intake and Output Vital Signs (last 24 hours): Temp Pulse Resp BP Pulse Ox 97.7 F 53 L 20 131/58 L 96 11/18/17 07:43 11/18/17 09:16 11/18/17 07:43 11/18/17 09:16 11/18/17 07:43 - Medications Medications: Current Medications Acetaminophen (Tylenol 325mg Tab) 650 mg PO Q4 PRN PRN Reason: Pain, moderate (4-7) Last Admin: 11/15/17 05:24 Dose: 650 mg Al Hydrox/Mg Hydrox/Simethicone (Maalox Plus 30 Ml) 30 ml PO Q4 PRN PRN Reason: .Abdominal pain Last Admin: 11/13/17 21:01 Dose: 30 ml Aspirin (Ecotrin) 81 mg PO DAILY [facility] Last Admin: 11/18/17 09:18 Dose: 81 mg Atorvastatin Calcium (Lipitor) 20 mg PO HS [facility] Last Admin: 11/17/17 21:37 Dose: 20 mg Clopidogrel Bisulfate (Plavix) 75 mg PO DAILY [facility] Last Admin: 11/18/17 09:18 Dose: 75 mg Enoxaparin Sodium (Lovenox) 40 mg SC DAILY [facility] PRN Reason: Protocol Last Admin: 11/18/17 09:17 Dose: 40 mg Ibuprofen (Motrin Tab) 600 mg PO Q6 PRN PRN Reason: Pain, Mild (1-3) Metoprolol Tartrate (Lopressor) 25 mg PO Q12 [facility] Last Admin: 11/18/17 09:16 Dose: Not Given Pantoprazole Sodium (Protonix Ec Tab) 40 mg PO DAILY [facility] Last Admin: 11/18/17 09:18 Dose: 40 mg Tramadol HCl (Ultram) 50 mg PO Q6H PRN PRN Reason: Pain, severe (8-10) Last Admin: 11/17/17 18:16 Dose: 50 mg - Labs Labs: 11/16/17 06:05 11/16/17 06:05 - Head Exam Head Exam: ATRAUMATIC, NORMAL INSPECTION, NORMOCEPHALIC - Eye Exam Eye Exam: EOMI, Normal appearance, PERRL Pupil Exam: NORMAL ACCOMODATION - ENT Exam ENT Exam: Mucous Membranes Moist, Normal Exam - Neck Exam Neck Exam: Normal Inspection - Respiratory Exam Respiratory Exam: NORMAL BREATHING PATTERN - Cardiovascular Exam Cardiovascular Exam: REGULAR RHYTHM - GI/Abdominal Exam GI & Abdominal Exam: Soft, Normal Bowel Sounds - Rectal Exam Rectal Exam: NORMAL INSPECTION - Exam External exam: NORMAL EXTERNAL EXAM - Extremities Exam Extremities Exam: Full ROM, Normal Capillary Refill, Normal Inspection - Back Exam Back Exam: NORMAL INSPECTION - Neurological Exam Neurological Exam: Alert, Awake Neuro motor strength exam: Left Upper Extremity: 3, Right Upper Extremity: 3, Left Lower Extremity: 2/1, Right Lower Extremity: 3 - Psychiatric Exam Psychiatric exam: Normal Affect, Normal Mood - Skin Skin Exam: Dry, Intact Assessment and Plan (1) CVA (cerebral vascular accident) Assessment & Plan: plan for physical and occupational and rec therapy Xray for the fracture of left foot Dr Lane follow up Status: Acute (2) Syncope Status: Acute
--- NOTE | 2017-11-18 16:00 | CP.PCM.PN ---
Subjective - Date & Time of Evaluation Date of Evaluation: 11/18/17 Time of Evaluation: 16:00 - Subjective Subjective: 67 y/o female seen at bedside this afternoon in acute rehab for left fibula fracture. Pt says posterior splint has remained clean, dry and intact and she has done her best to remain non weightbearing. She admits to occasionally trying to walk on the splint and forgetting that she should not bear weight on the left lower extremity. States she has minor pain in the left ankle intermittently, but overall feels well. States physical therapy and ambulation training is going well. Denies F/C/N/V/CP/SOB Objective - Vital Signs/Intake and Output Vital Signs (last 24 hours): Temp Pulse Resp BP Pulse Ox 97.7 F 53 L 20 131/58 L 96 11/18/17 07:43 11/18/17 09:16 11/18/17 07:43 11/18/17 09:16 11/18/17 07:43 - Medications Medications: Current Medications Acetaminophen (Tylenol 325mg Tab) 650 mg PO Q4 PRN PRN Reason: Pain, moderate (4-7) Last Admin: 11/15/17 05:24 Dose: 650 mg Al Hydrox/Mg Hydrox/Simethicone (Maalox Plus 30 Ml) 30 ml PO Q4 PRN PRN Reason: .Abdominal pain Last Admin: 11/13/17 21:01 Dose: 30 ml Aspirin (Ecotrin) 81 mg PO DAILY [facility] Last Admin: 11/18/17 09:18 Dose: 81 mg Atorvastatin Calcium (Lipitor) 20 mg PO HS [facility] Last Admin: 11/17/17 21:37 Dose: 20 mg Clopidogrel Bisulfate (Plavix) 75 mg PO DAILY [facility] Last Admin: 11/18/17 09:18 Dose: 75 mg Enoxaparin Sodium (Lovenox) 40 mg SC DAILY [facility] PRN Reason: Protocol Last Admin: 11/18/17 09:17 Dose: 40 mg Ibuprofen (Motrin Tab) 600 mg PO Q6 PRN PRN Reason: Pain, Mild (1-3) Metoprolol Tartrate (Lopressor) 25 mg PO Q12 [facility] Last Admin: 11/18/17 09:16 Dose: Not Given Pantoprazole Sodium (Protonix Ec Tab) 40 mg PO DAILY [facility] Last Admin: 11/18/17 09:18 Dose: 40 mg Tramadol HCl (Ultram) 50 mg PO Q6H PRN PRN Reason: Pain, severe (8-10) Last Admin: 11/18/17 13:33 Dose: 50 mg - Labs Labs: 11/16/17 06:05 11/16/17 06:05 - Constitutional Appears: Well, Non-toxic, No Acute Distress - Extremities Exam Additional comments: LLE with posterior splint clean, dry and intact Pt able to wiggle toes without difficulty CFT < 3 sec to all digits (-) for calf tenderness - Neurological Exam Neurological Exam: Alert, Awake - Psychiatric Exam Psychiatric exam: Normal Affect, Normal Mood Assessment and Plan - Assessment and Plan (Free Text) Assessment: 67 y/o female with PMHx of myasthenia gravis, non-Hodgkins lymphoma s/p basal ganglia infarct seen in acute rehab for left distal fibula fracture, nondislocated with mild posterior displacement noted Plan: Pt seen and evaluated at bedside Discussed plan with attending Dr. Lane Xrays of left ankle on 11/11/17 revealed mildly posteriorly displaced lateral malleolar fracture; no dislocation or subluxation New x-rays taken today reveal stable lateral malleolar/distal fibular fracture; no signs of definite callus formation at this time BK cast applied to LLE for added stability Pt to remain NWB at all times with use of assistive devices such as rolling walker Podiatry will continue to follow patient while in house
[2017-11-19 08:25] LABS: HEMOGLOBIN 13.3 g/dL (12.0-16.0); MEAN CELL VOLUME 72.3 fl (81.0-99.0); MEAN CORPUSCULAR HEMOGLOBIN 23.9 pg (27.0-31.0); MEAN CORPUSCULAR HGB CONC 33.1 g/dL (33.0-37.0); RBC 5.58 Mil/uL (3.80-5.20); RED CELL DISTRIBUTION WIDTH 21.1 % (11.5-14.5); WHITE BLOOD COUNT 4.9 K/uL (4.8-10.8)
[2017-11-19 08:38] LABS: BLOOD UREA NITROGEN 22 mg/dl (7-17); CALCIUM 10.2 mg/dL (8.4-10.2); GFR AFRICAN-AMERICAN > 60; GFR NON-AFRICAN AMERICAN > 60
[2017-11-19] MEDS: Pantoprazole 40 mg EC Tab PO SCH (08:53)
[2017-11-19] MEDS: Enoxaparin 40 mg Syringe SC SCH (08:53)
--- NOTE | 2017-11-19 12:05 | CP.PCM.PN ---
Subjective - Date & Time of Evaluation Date of Evaluation: 11/19/17 Time of Evaluation: 12:05 - Subjective Subjective: Podiatry Progress Note - Dr. Lane 67 year old female patient seen and evaluated at bedside for left fibula fracture. CRISTINA. Reports minimal pain to LLE, well-controlled. States she is tolerating the cast to LLE well. Denies any calf pain to LLE. Denies N/V/F/D/C/ SOB. Objective - Vital Signs/Intake and Output Vital Signs (last 24 hours): Temp Pulse Resp BP Pulse Ox 97.3 F L 60 20 148/84 96 11/19/17 08:00 11/19/17 08:52 11/19/17 08:00 11/19/17 08:52 11/19/17 08:00 - Medications Medications: Current Medications Acetaminophen (Tylenol 325mg Tab) 650 mg PO Q4 PRN PRN Reason: Pain, moderate (4-7) Last Admin: 11/18/17 18:42 Dose: 650 mg Al Hydrox/Mg Hydrox/Simethicone (Maalox Plus 30 Ml) 30 ml PO Q4 PRN PRN Reason: .Abdominal pain Last Admin: 11/13/17 21:01 Dose: 30 ml Aspirin (Ecotrin) 81 mg PO DAILY [facility] Last Admin: 11/19/17 08:51 Dose: 81 mg Atorvastatin Calcium (Lipitor) 20 mg PO HS [facility] Last Admin: 11/18/17 21:16 Dose: 20 mg Clopidogrel Bisulfate (Plavix) 75 mg PO DAILY [facility] Last Admin: 11/19/17 08:51 Dose: 75 mg Enoxaparin Sodium (Lovenox) 40 mg SC DAILY [facility] PRN Reason: Protocol Last Admin: 11/19/17 08:53 Dose: 40 mg Ibuprofen (Motrin Tab) 600 mg PO Q6 PRN PRN Reason: Pain, Mild (1-3) Metoprolol Tartrate (Lopressor) 25 mg PO Q12 [facility] Last Admin: 11/19/17 08:52 Dose: 25 mg Pantoprazole Sodium (Protonix Ec Tab) 40 mg PO DAILY [facility] Last Admin: 11/19/17 08:53 Dose: 40 mg Tramadol HCl (Ultram) 50 mg PO Q6H PRN PRN Reason: Pain, severe (8-10) Last Admin: 11/19/17 08:55 Dose: 50 mg - Labs Labs: 11/19/17 08:03 11/19/17 08:03 - Constitutional Appears: Well, Non-toxic, No Acute Distress - Extremities Exam Additional comments: BK fiberglass cast to LLE appears clean/dry/intact. CFT <3 seconds to digits x5 - Neurological Exam Neurological Exam: Alert, Awake, Oriented x3 - Psychiatric Exam Psychiatric exam: Normal Affect, Normal Mood Assessment and Plan - Assessment and Plan (Free Text) Assessment: 67 y/o female with PMHx of myasthenia gravis, non-Hodgkins lymphoma s/p basal ganglia infarct seen in acute rehab for left distal fibula fracture, nondislocated with mild posterior displacement. Plan: Patient seen and evaluated in acute rehab with attending, Dr. Ariana Mendoza L ankle XR (11/11/17) reveal mildly posteriorly displaced lateral malleolar fracture; no dislocation or subluxation Repeat XR ( 11/18/17)reveal stable lateral malleolar/distal fibular fracture; no signs of definite callus formation at this time LLE BK fiberglass cast maintained Continue PT/OT - NWB LLE with the assistance of walker Pain control - Tylenol 650mg, Ibuprofen 600mg, Tramadol 50mg PO Podiatry will continue to follow patient while in house
[2017-11-20] MEDS: Enoxaparin 40 mg Syringe SC SCH (08:06)
[2017-11-20] MEDS: Pantoprazole 40 mg EC Tab PO SCH (08:07)
[2017-11-21] MEDS: Pantoprazole 40 mg EC Tab PO SCH (08:57)
[2017-11-21] MEDS: Enoxaparin 40 mg Syringe SC SCH (09:00)
--- NOTE | 2017-11-21 09:54 | CP.PCM.PN ---
Subjective - Date & Time of Evaluation Date of Evaluation: 11/21/17 Time of Evaluation: 09:49 - Subjective Subjective: Podiatry Progress Note - Dr. Lane 67 y/o female seen and evaluated at bedside for left fibula fracture with below knee cast in place to LLE. Patient denies any acute events overnight. Reports minimal pain to LLE, well-controlled with pain medications. States she is tolerating the cast to LLE fine but has felt pain in the leg and ankle for the last few days. Denies any calf pain or tenderness to LLE. Admits to very mild numbness in the toes yesterday but states it has since resolved. Denies F/C/N/V/ D/CP/SOB. Objective - Vital Signs/Intake and Output Vital Signs (last 24 hours): Temp Pulse Resp BP Pulse Ox 97.3 F L 81 18 134/60 98 11/21/17 08:06 11/21/17 08:58 11/21/17 08:06 11/21/17 08:58 11/21/17 08:06 - Medications Medications: Current Medications Acetaminophen (Tylenol 325mg Tab) 650 mg PO Q4 PRN PRN Reason: Pain, moderate (4-7) Last Admin: 11/18/17 18:42 Dose: 650 mg Al Hydrox/Mg Hydrox/Simethicone (Maalox Plus 30 Ml) 30 ml PO Q4 PRN PRN Reason: .Abdominal pain Last Admin: 11/13/17 21:01 Dose: 30 ml Aspirin (Ecotrin) 81 mg PO DAILY [facility] Last Admin: 11/21/17 09:00 Dose: 81 mg Atorvastatin Calcium (Lipitor) 20 mg PO HS [facility] Last Admin: 11/20/17 21:24 Dose: 20 mg Clopidogrel Bisulfate (Plavix) 75 mg PO DAILY [facility] Last Admin: 11/21/17 08:58 Dose: 75 mg Enoxaparin Sodium (Lovenox) 40 mg SC DAILY [facility] PRN Reason: Protocol Last Admin: 11/21/17 09:00 Dose: 40 mg Ibuprofen (Motrin Tab) 600 mg PO Q6 PRN PRN Reason: Pain, Mild (1-3) Metoprolol Tartrate (Lopressor) 25 mg PO Q12 [facility] Last Admin: 11/21/17 08:58 Dose: 25 mg Pantoprazole Sodium (Protonix Ec Tab) 40 mg PO DAILY [facility] Last Admin: 11/21/17 08:57 Dose: 40 mg Tramadol HCl (Ultram) 50 mg PO Q6H PRN PRN Reason: Pain, severe (8-10) Last Admin: 11/21/17 08:57 Dose: 50 mg - Labs Labs: 11/19/17 08:03 11/19/17 08:03 - Constitutional Appears: Well, Non-toxic, No Acute Distress - Extremities Exam Additional comments: BK fiberglass cast to LLE appears clean/dry/intact/nonocclusive CFT <3 seconds to digits x5 Pt able to wiggle toes without difficulty Cast check - adequate two finger gapping noted b/n leg and cast both proximally and distally - Neurological Exam Neurological Exam: Alert, Awake, Oriented x3 - Psychiatric Exam Psychiatric exam: Normal Affect, Normal Mood Assessment and Plan - Assessment and Plan (Free Text) Assessment: 67 y/o female with PMHx of myasthenia gravis, non-Hodgkins lymphoma s/p basal ganglia infarct seen in acute rehab for left distal fibula fracture, nondislocated with mild posterior displacement Plan: Patient seen and evaluated in acute rehab with attending, Dr. Ariana Mendoza L ankle XR (11/11/17) reveal mildly posteriorly displaced lateral malleolar fracture; no dislocation or subluxation Repeat XR ( 11/18/17)reveal stable lateral malleolar/distal fibular fracture; no signs of definite callus formation at this time BK fiberglass cast maintained to LLE - cast check ensures adequate room at proximal and distal aspects of cast Continue PT/OT - NWB LLE with the assistance of walker Pain control - Tylenol 650mg, Ibuprofen 600mg, Tramadol 50mg PO Podiatry will continue to follow patient while in house
--- NOTE | 2017-11-21 10:46 | CP.PCM.PN ---
Subjective - Date & Time of Evaluation Date of Evaluation: 11/21/17 Time of Evaluation: 10:42 - Subjective Subjective: Ms. Castillo was seen and examined at the bedside. She is alert, oriented in all spheres. She denies any headache, dizziness, blurred vision, nausea, or vomiting. She states that she has the feeling of dizziness with sudden change of position. She is able to follow simple commands and transfer from bed to chair with minimal assistance. There was no untoward events overnight. Objective - Vital Signs/Intake and Output Vital Signs (last 24 hours): Temp Pulse Resp BP Pulse Ox 97.3 F L 81 18 134/60 98 11/21/17 08:06 11/21/17 08:58 11/21/17 08:06 11/21/17 08:58 11/21/17 08:06 - Medications Medications: Current Medications Acetaminophen (Tylenol 325mg Tab) 650 mg PO Q4 PRN PRN Reason: Pain, moderate (4-7) Last Admin: 11/18/17 18:42 Dose: 650 mg Al Hydrox/Mg Hydrox/Simethicone (Maalox Plus 30 Ml) 30 ml PO Q4 PRN PRN Reason: .Abdominal pain Last Admin: 11/13/17 21:01 Dose: 30 ml Aspirin (Ecotrin) 81 mg PO DAILY [facility] Last Admin: 11/21/17 09:00 Dose: 81 mg Atorvastatin Calcium (Lipitor) 20 mg PO HS [facility] Last Admin: 11/20/17 21:24 Dose: 20 mg Clopidogrel Bisulfate (Plavix) 75 mg PO DAILY [facility] Last Admin: 11/21/17 08:58 Dose: 75 mg Enoxaparin Sodium (Lovenox) 40 mg SC DAILY [facility] PRN Reason: Protocol Last Admin: 11/21/17 09:00 Dose: 40 mg Ibuprofen (Motrin Tab) 600 mg PO Q6 PRN PRN Reason: Pain, Mild (1-3) Metoprolol Tartrate (Lopressor) 25 mg PO Q12 [facility] Last Admin: 11/21/17 08:58 Dose: 25 mg Pantoprazole Sodium (Protonix Ec Tab) 40 mg PO DAILY [facility] Last Admin: 11/21/17 08:57 Dose: 40 mg Tramadol HCl (Ultram) 50 mg PO Q6H PRN PRN Reason: Pain, severe (8-10) Last Admin: 11/21/17 08:57 Dose: 50 mg - Labs Labs: 11/19/17 08:03 11/19/17 08:03 - Constitutional Appears: No Acute Distress - Head Exam Head Exam: NORMAL INSPECTION - Neurological Exam Neurological Exam: Alert, Awake, Oriented x3 Neuro motor strength exam: Left Upper Extremity: 5, Right Upper Extremity: 5, Left Lower Extremity: 5, Right Lower Extremity: 3 Additional comments: Neurological unchanged from previous examination. Assessment and Plan (1) CVA (cerebral vascular accident) Assessment & Plan: Case discussed with Dr. Bowens, continue all current medical, physical, occupational, and speech therapies. There is no new recommendation from neurology. Status: Acute
--- NOTE | 2017-11-21 11:14 | CP.PCM.PN ---
Subjective - Date & Time of Evaluation Date of Evaluation: 11/21/17 Time of Evaluation: 11:13 - Subjective Subjective: tolerating PT well no complaints denies cp sob calf tenderness HD STABLE NAD Objective - Vital Signs/Intake and Output Vital Signs (last 24 hours): Temp Pulse Resp BP Pulse Ox 97.3 F L 81 18 134/60 98 11/21/17 08:06 11/21/17 08:58 11/21/17 08:06 11/21/17 08:58 11/21/17 08:06 Constitutional- cooperative, awake, alert. Head- NCAT, PERRL Eye- PERRL, normal accommodation ENT- normal exam, MMM. Neck- normal inspection, supple, no JVD Respiratory- CTAB, no wheezes rales rhonchi Cardiovascular- RRR, +S1, +S2 no MRG GI/Abdominal- normal bowel sounds, soft Skin- warm, dry Extremities Exam- + Left leg in posterior splint. Able to wiggle her toes. Normal capillary refill Neurological Exam- alert, oriented Psych- normal mood, normal affect - Medications Medications: Current Medications Acetaminophen (Tylenol 325mg Tab) 650 mg PO Q4 PRN PRN Reason: Pain, moderate (4-7) Last Admin: 11/18/17 18:42 Dose: 650 mg Al Hydrox/Mg Hydrox/Simethicone (Maalox Plus 30 Ml) 30 ml PO Q4 PRN PRN Reason: .Abdominal pain Last Admin: 11/13/17 21:01 Dose: 30 ml Aspirin (Ecotrin) 81 mg PO DAILY [facility] Last Admin: 11/21/17 09:00 Dose: 81 mg Atorvastatin Calcium (Lipitor) 20 mg PO HS [facility] Last Admin: 11/20/17 21:24 Dose: 20 mg Clopidogrel Bisulfate (Plavix) 75 mg PO DAILY [facility] Last Admin: 11/21/17 08:58 Dose: 75 mg Enoxaparin Sodium (Lovenox) 40 mg SC DAILY [facility] PRN Reason: Protocol Last Admin: 11/21/17 09:00 Dose: 40 mg Ibuprofen (Motrin Tab) 600 mg PO Q6 PRN PRN Reason: Pain, Mild (1-3) Metoprolol Tartrate (Lopressor) 25 mg PO Q12 [facility] Last Admin: 11/21/17 08:58 Dose: 25 mg Pantoprazole Sodium (Protonix Ec Tab) 40 mg PO DAILY [facility] Last Admin: 11/21/17 08:57 Dose: 40 mg Tramadol HCl (Ultram) 50 mg PO Q6H PRN PRN Reason: Pain, severe (8-10) Last Admin: 11/21/17 08:57 Dose: 50 mg - Labs Labs: 11/19/17 08:03 11/19/17 08:03 Assessment and Plan - Assessment and Plan (Free Text) Plan: 67 year old female PMH Myasthenia Gravis, Non Hodgkins Lymphoma s/p chemo, hx of URI for one week (neg CXR), presents to the ER on 11/03/2017 after 2 mechanical falls, each time after attempting to open her cat food. The first episode 911 was called however she refused care, the second time she fell, neighbors responded. Patient states she did not lose consciousness prior to falling, and complains of some acute moderate sharp/aching pain in her knee and ankle. XR/CT imaging in ER have all been negative. In ER pt found to have WBC 13k, UA- some hyaline casts but no evidence of UTI. UCx pending. CT head showed possible evolving ischemia and MRI was completed, showing right basal ganglia infarct. Patient did not exhibit any bulbar weakness, or respiratory symptoms/difficulty. No focal neuro deficits, AAOx3. Mild Azotemia. Neuro consulted, Dr. Hogna. HD stable. The patient was observed overnight on telemetry without changes. On 11/04, MRI demonstrated basal ganglia acute/subacute infarct. Pt seen by PT and recommends physical therapy. The patient was discharged to TCU for further PT/OT and for further workup by Dr. Hogan, neurology in stable condition. On 11/09/2017, after an uncomplicated stay in TCU, the patient was discharged to acute rehabilitation for further physical therapy and occupational therapy. Today. 11/10/2017, is her last day of her antibiotic therapy for UTI. She is complaining of occasional pain in her hips bilaterally and neck pain but it is controlled with Motrin. She has no other complaints today. She says therapies are going well. The patient's son Omar can be reached at [phone] for any new developments. To note: incidental soft tissue mass/density noted on CT and MRI. Physical examination did not show any tenderness, swelling, erythema, or palpable mass. May follow up as outpatient with Dermatology. CVA Fall x2 while trying to open her cat food Neuro consult Dr. Hogan appreciated and followed. ASA, PLAVIX, STATIN CT head showed possible evolving area of ischemia MRI read +basal ganglia acute/subacute CVA Echo complete Carotid dopplers complete For further Pt/OT in acute rehab Physiatry consultation Myasthenia Gravis Continue PT/OT No bulbar weakness or respiratory symptoms Left distal fibular fracture, nondislocated wtih mild posterior displacement noted. Podiatry consultation with Dr. Lane appreciated BK cast as per podiatry Non-weight bearing to left foot supportive care and pain control Azotemia- resolved BUN 20 monitor UTI Macrobid BID course completed 11/10/2017 UCX: Multiple species, likely contamination. VTE ppx Lovenox
[2017-11-22 06:21] LABS: HEMOGLOBIN 13.9 g/dL (12.0-16.0); MEAN CELL VOLUME 71.8 fl (81.0-99.0); MEAN CORPUSCULAR HEMOGLOBIN 23.6 pg (27.0-31.0); RBC 5.87 Mil/uL (3.80-5.20); RED CELL DISTRIBUTION WIDTH 20.2 % (11.5-14.5); WHITE BLOOD COUNT 5.5 K/uL (4.8-10.8)
[2017-11-22 06:30] LABS: BLOOD UREA NITROGEN 19 mg/dl (7-17); CALCIUM 10.7 mg/dL (8.4-10.2); GFR AFRICAN-AMERICAN > 60; GFR NON-AFRICAN AMERICAN > 60
[2017-11-22] MEDS: Pantoprazole 40 mg EC Tab PO SCH (08:48)
[2017-11-22] MEDS: Enoxaparin 40 mg Syringe SC SCH (08:49)
--- NOTE | 2017-11-22 14:39 | CP.PCM.PN ---
Subjective - Date & Time of Evaluation Date of Evaluation: 11/19/17 Time of Evaluation: 16:00 - Subjective Subjective: patinet with mild leg leg discomfort Objective - Vital Signs/Intake and Output Vital Signs (last 24 hours): Temp Pulse Resp BP Pulse Ox 97.9 F 65 22 121/62 98 11/22/17 08:18 11/22/17 08:54 11/22/17 08:18 11/22/17 08:54 11/22/17 08:18 - Medications Medications: Current Medications Acetaminophen (Tylenol 325mg Tab) 650 mg PO Q4 PRN PRN Reason: Pain, moderate (4-7) Last Admin: 11/18/17 18:42 Dose: 650 mg Al Hydrox/Mg Hydrox/Simethicone (Maalox Plus 30 Ml) 30 ml PO Q4 PRN PRN Reason: .Abdominal pain Last Admin: 11/13/17 21:01 Dose: 30 ml Aspirin (Ecotrin) 81 mg PO DAILY [facility] Last Admin: 11/22/17 08:49 Dose: 81 mg Atorvastatin Calcium (Lipitor) 20 mg PO HS [facility] Last Admin: 11/21/17 21:27 Dose: 20 mg Clopidogrel Bisulfate (Plavix) 75 mg PO DAILY [facility] Last Admin: 11/22/17 08:48 Dose: 75 mg Enoxaparin Sodium (Lovenox) 40 mg SC DAILY [facility] PRN Reason: Protocol Last Admin: 11/22/17 08:49 Dose: 40 mg Ibuprofen (Motrin Tab) 600 mg PO Q6 PRN PRN Reason: Pain, Mild (1-3) Metoprolol Tartrate (Lopressor) 25 mg PO Q12 [facility] Last Admin: 11/22/17 08:00 Dose: 25 mg Pantoprazole Sodium (Protonix Ec Tab) 40 mg PO DAILY [facility] Last Admin: 11/22/17 08:48 Dose: 40 mg Tramadol HCl (Ultram) 50 mg PO Q6H PRN PRN Reason: Pain, severe (8-10) Last Admin: 11/21/17 08:57 Dose: 50 mg - Labs Labs: 11/22/17 06:00 11/22/17 06:00 - Head Exam Head Exam: ATRAUMATIC, NORMAL INSPECTION, NORMOCEPHALIC - Eye Exam Eye Exam: EOMI, Normal appearance, PERRL Pupil Exam: NORMAL ACCOMODATION - ENT Exam ENT Exam: Mucous Membranes Moist, Normal Exam - Neck Exam Neck Exam: Normal Inspection - Respiratory Exam Respiratory Exam: NORMAL BREATHING PATTERN - Cardiovascular Exam Cardiovascular Exam: REGULAR RHYTHM - GI/Abdominal Exam GI & Abdominal Exam: Normal Bowel Sounds - Rectal Exam Rectal Exam: NORMAL INSPECTION - Exam External exam: NORMAL EXTERNAL EXAM - Extremities Exam Extremities Exam: Full ROM - Back Exam Back Exam: NORMAL INSPECTION - Neurological Exam Neurological Exam: Alert, Awake Neuro motor strength exam: Left Upper Extremity: 3, Right Upper Extremity: 3, Left Lower Extremity: 2/1, Right Lower Extremity: 3 - Psychiatric Exam Psychiatric exam: Normal Affect, Normal Mood - Skin Skin Exam: Dry, Intact Assessment and Plan (1) CVA (cerebral vascular accident) Assessment & Plan: plan for physical, occupational, rec therapy Status: Acute (2) Syncope Status: Acute
--- NOTE | 2017-11-22 14:42 | CP.PCM.PN ---
Subjective - Date & Time of Evaluation Date of Evaluation: 11/22/17 Time of Evaluation: 09:00 - Subjective Subjective: patient with mild leg discomfort, worried about her cat Objective - Vital Signs/Intake and Output Vital Signs (last 24 hours): Temp Pulse Resp BP Pulse Ox 97.9 F 65 22 121/62 98 11/22/17 08:18 11/22/17 08:54 11/22/17 08:18 11/22/17 08:54 11/22/17 08:18 - Medications Medications: Current Medications Acetaminophen (Tylenol 325mg Tab) 650 mg PO Q4 PRN PRN Reason: Pain, moderate (4-7) Last Admin: 11/18/17 18:42 Dose: 650 mg Al Hydrox/Mg Hydrox/Simethicone (Maalox Plus 30 Ml) 30 ml PO Q4 PRN PRN Reason: .Abdominal pain Last Admin: 11/13/17 21:01 Dose: 30 ml Aspirin (Ecotrin) 81 mg PO DAILY [facility] Last Admin: 11/22/17 08:49 Dose: 81 mg Atorvastatin Calcium (Lipitor) 20 mg PO HS [facility] Last Admin: 11/21/17 21:27 Dose: 20 mg Clopidogrel Bisulfate (Plavix) 75 mg PO DAILY [facility] Last Admin: 11/22/17 08:48 Dose: 75 mg Enoxaparin Sodium (Lovenox) 40 mg SC DAILY [facility] PRN Reason: Protocol Last Admin: 11/22/17 08:49 Dose: 40 mg Ibuprofen (Motrin Tab) 600 mg PO Q6 PRN PRN Reason: Pain, Mild (1-3) Metoprolol Tartrate (Lopressor) 25 mg PO Q12 [facility] Last Admin: 11/22/17 08:00 Dose: 25 mg Pantoprazole Sodium (Protonix Ec Tab) 40 mg PO DAILY [facility] Last Admin: 11/22/17 08:48 Dose: 40 mg Tramadol HCl (Ultram) 50 mg PO Q6H PRN PRN Reason: Pain, severe (8-10) Last Admin: 11/21/17 08:57 Dose: 50 mg - Labs Labs: 11/22/17 06:00 11/22/17 06:00 - Head Exam Head Exam: ATRAUMATIC, NORMAL INSPECTION, NORMOCEPHALIC - Eye Exam Eye Exam: EOMI, Normal appearance, PERRL Pupil Exam: NORMAL ACCOMODATION - ENT Exam ENT Exam: Mucous Membranes Moist, Normal Exam - Neck Exam Neck Exam: Normal Inspection - Respiratory Exam Respiratory Exam: NORMAL BREATHING PATTERN - Cardiovascular Exam Cardiovascular Exam: REGULAR RHYTHM - GI/Abdominal Exam GI & Abdominal Exam: Soft, Normal Bowel Sounds - Rectal Exam Rectal Exam: NORMAL INSPECTION - Exam External exam: NORMAL EXTERNAL EXAM - Extremities Exam Extremities Exam: Full ROM, Normal Capillary Refill - Back Exam Back Exam: NORMAL INSPECTION - Neurological Exam Neurological Exam: Alert, Awake Neuro motor strength exam: Left Upper Extremity: 3, Right Upper Extremity: 3, Left Lower Extremity: 2/1 (left leg cast), Right Lower Extremity: 3 - Psychiatric Exam Psychiatric exam: Normal Affect, Normal Mood - Skin Skin Exam: Dry, Intact Assessment and Plan (1) CVA (cerebral vascular accident) Assessment & Plan: plan fo rphysical, occupational, rec therapy cast for left leg fracute, Dc for 19 Status: Acute (2) Syncope Status: Acute
[2017-11-23] MEDS: Pantoprazole 40 mg EC Tab PO SCH (08:18)
[2017-11-23] MEDS: Enoxaparin 40 mg Syringe SC SCH (08:19)
--- NOTE | 2017-11-23 10:20 | CP.PCM.PN ---
Subjective - Date & Time of Evaluation Date of Evaluation: 11/23/17 Time of Evaluation: 10:18 - Subjective Subjective: Ms. Castillo was seen and examined at the bedside. She is alert, oriented in all spheres. She denies any headache, dizziness, lightheadedness, blurred vision, nausea, or vomiting. She is able to answer questions and follow simple commands. There was no untoward events overnight. Objective - Vital Signs/Intake and Output Vital Signs (last 24 hours): Temp Pulse Resp BP Pulse Ox 98.0 F 74 19 133/70 96 11/23/17 08:41 11/23/17 08:41 11/23/17 08:41 11/23/17 08:41 11/23/17 08:41 - Medications Medications: Current Medications Acetaminophen (Tylenol 325mg Tab) 650 mg PO Q4 PRN PRN Reason: Pain, moderate (4-7) Last Admin: 11/18/17 18:42 Dose: 650 mg Al Hydrox/Mg Hydrox/Simethicone (Maalox Plus 30 Ml) 30 ml PO Q4 PRN PRN Reason: .Abdominal pain Last Admin: 11/13/17 21:01 Dose: 30 ml Aspirin (Ecotrin) 81 mg PO DAILY [facility] Last Admin: 11/23/17 08:18 Dose: 81 mg Atorvastatin Calcium (Lipitor) 20 mg PO HS [facility] Last Admin: 11/22/17 21:34 Dose: 20 mg Clopidogrel Bisulfate (Plavix) 75 mg PO DAILY [facility] Last Admin: 11/23/17 08:19 Dose: 75 mg Enoxaparin Sodium (Lovenox) 40 mg SC DAILY [facility] PRN Reason: Protocol Last Admin: 11/23/17 08:19 Dose: 40 mg Ibuprofen (Motrin Tab) 600 mg PO Q6 PRN PRN Reason: Pain, Mild (1-3) Metoprolol Tartrate (Lopressor) 25 mg PO Q12 [facility] Last Admin: 11/23/17 08:18 Dose: 25 mg Pantoprazole Sodium (Protonix Ec Tab) 40 mg PO DAILY [facility] Last Admin: 11/23/17 08:18 Dose: 40 mg Tramadol HCl (Ultram) 50 mg PO Q6H PRN PRN Reason: Pain, severe (8-10) Last Admin: 11/21/17 08:57 Dose: 50 mg - Labs Labs: 11/22/17 06:00 11/22/17 06:00 - Constitutional Appears: No Acute Distress - Head Exam Head Exam: NORMAL INSPECTION - Neurological Exam Neurological Exam: Alert, Awake, Oriented x3 Neuro motor strength exam: Left Upper Extremity: 4, Right Upper Extremity: 4, Left Lower Extremity: 2/1, Right Lower Extremity: 2/1 Additional comments: Neurological unchanged from previous examination. Assessment and Plan (1) CVA (cerebral vascular accident) Assessment & Plan: Case discussed with Dr. Bowens, continue all current medical, physical, occupational, and speech therapies. There is no new recommendations from neurology. Status: Acute
--- NOTE | 2017-11-23 12:03 | PSY.TMCNF ---
Nursing - Vital Signs Vital Signs (Last 8 hours): Vital Signs 11/23/17 11/23/17 08:18 08:41 Temperature 98.0 F Pulse Rate 74 74 Respiratory 19 Rate Blood Pressure 133/70 133/70 O2 Sat by Pulse 96 Oximetry Pain: 8 - Medications/Other Issues Comment: Pt at high nutritional risk. goal:1. Pt to consume 75-100% of meals( unmet, continue). Follow-up due on 11/23/2017 - Bladder Management Bladder Pattern: Normal Voiding Method: Toilet - Bowel Management Bowel Pattern: Incontinent - Goals/Time Frame Comments: Pt was seen awake and alert sitting in her wheelchair in her room. Pt agreeable to go to recreation room. Pt was able to identify her leisure interests such as sewing, crafts, and cooking. Pt demonstrated to recreation therapist pictures of dolls that pt knits at home as well as other projects she enjoys doing. Pt reported that she lives alone, has a cat, and cooks for herself. Pt's son lives in [place] and other son lives in [place]. Pt reported that she has a signficant other that lives in [facility]. Pt presented with lethargy at times as she was closing her eyes and pt c/o "they worked me out a lot today." Pt engaged in discussions and required visual cues on how to utilize cell phone. Pt c/o no pain during session. Pt returned to room, placed call oconnor within reach and encouraged pt to stay out of bed until after pt eats dinner. Pt verbalized understanding, RN's aware that pt is in room. Physical Therapy - Bed Mobility Bed Mobility: Maximum Assistance - Transfers Wheelchair to Mat: Minimal Assistance, Moderate Assistance Sit to Stand: Maximum Assistance Comment: WC < > MAT transfers using transfer board - Ambulation Level of Assistance: Maximum Assistance, Dependent - Stair Negotiation Stairs: Level of Assistance: Not Tested, Dependent - Standing Balance Static Stand: Contact Guard Assist Dynamic Stand: Single leg stance, Minimal Assistance - Pain Management Techniques: Medication, Position Change, Distraction, Inactivity - Insight/Carryover Insight/Carryover: Fair - Patient/Family Education Comment: Pt educated regarding compensatory strategies for ADLs and ADL txfers while maintaining weight bearing precautions, pt with impaired cognition and requires cueing throughout tasks and continued education to reinforce all strategies. - Assessment/Plan Assessment: Pt with impaired insight, short term memory, attention, problem solving, dynamic balance, and endurance, pt would benefit from continued OT services to decrease falls risk and maximize independence with ADLs and functional transfers in order to return safely to home environment. - Goals Timeframe: 1 week Goals: S toilet txfer. MIN A toileting. MOD I grooming. MOD I feeding. MIN A LE dressing - Provider License Number: [id number] Occupational Therapy - Arousal/Attention/Orientation Patient Orientation: Person, Place - ADL/IADL Self Feeding: Supervision, Set-up Help Grooming: Set-up Help Dressing-Upper Extremity: Supervision, Verbal Cues, Set-up Help Dressing-Lower Extremity: Supervision, Verbal Cues, Set-up Help, Moderate Assistance - Sitting Balance Static Sitting: Supervision Dynamic Sitting: Reaches across midline, Reaches out of base of support, Reaches within base of support, Requires supervision Comment: seated at edge of bed - Transfers Wheelchair to Bed Transfers: Verbal Cues, Set-up Help, Minimal Assistance Toilet Transfers: Verbal Cues, Set-up Help, Moderate Assistance - Wheelchair Management Level of Assistance: Supervision, Verbal Cues, Set-up Help Distance (ft.): 50 - Upper Extremity Status Right Upper Extremity Comment: AROM WFL with exception of Digits 3-5flexed at MCP/PIP/DIP however passive range is WFL when stretched, MMT grossly 4-/5 Left Upper Extremity Comment: AROM WFL with exception of Digits 3-5flexed at MCP /PIP/DIP however passive range is WFL when stretched, MMT grossly 4-/5 - Pain Alleviating Techniques: Medication, Position Change, Distraction, Inactivity - Insight/Carryover Insight/Carryover: Fair - Patient/Family Education Comment: Pt educated regarding compensatory strategies for ADLs and ADL txfers while maintaining weight bearing precautions, pt with impaired cognition and requires cueing throughout tasks and continued education to reinforce all strategies. - Assessment/Plan Assessment: Pt with impaired insight, short term memory, attention, problem solving, dynamic balance, and endurance, pt would benefit from continued OT services to decrease falls risk and maximize independence with ADLs and functional transfers in order to return safely to home environment. - Goals Timeframe: 1 week Goals: S toilet txfer. MIN A toileting. MOD I grooming. MOD I feeding. MIN A LE dressing - Provider Therapist: Jemma Conti License Number: [id number] Speech Therapy - Consult Information Patient on Program: Yes Medical Diagnosis: CVA Treatment Diagnosis: mild cognitive-linguistic deficits - Assessment Problem Solving Impairment: Mild Memory Impairment: Mild - Plan Assessment: Pt with impaired insight, short term memory, attention, problem solving, dynamic balance, and endurance, pt would benefit from continued OT services to decrease falls risk and maximize independence with ADLs and functional transfers in order to return safely to home environment. - Provider Therapist: Rubi Henderson License Number: [id number] Recreational Therapy - Participation Participation: Participates in Individual and/or Group Sessions - Attendance Attendance: Daily - Activities Leisure Activities: Cards and Games - Socialization Level of Socialization: Initiates/interacts freely with care givers and peer - Diversional Time Diversional Time: television - Assessment Assessment/Plan: Pt with impaired insight, short term memory, attention, problem solving, dynamic balance, and endurance, pt would benefit from continued OT services to decrease falls risk and maximize independence with ADLs and functional transfers in order to return safely to home environment. - Provider Therapist: Radha Monte, [facility] [employer] #[id number] Nutrition - Current Diet Current Diet/ Supplement/ Feedings: Regular diet ensure plus 8 ounces 1 per day - Appetite Percent Meal Consumed: 50-74% - Assessment/Goals/Time Frame Assessment/Goals/Time Frame: Pt at high nutritional risk. goal:1. Pt to consume 75-100% of meals(unmet, continue). Follow-up due on 11/23/2017 - Provider Provider: Carlyn Lassiter RD Case Management - Psychosocial Assessment Support Systems: Omar ([facility])- [phone]. Martir ([facility])- [phone] Psychological Interventions/Needs: Patient is alert with intermittent confusion and forgetfulness. Discharge Concerns: Patient is now NWB to LLE due to recent ankle fracture, patient currently requiring mod-maxA for functional mobility and presents with mild problem solving and memory deficits. Patient/Family Meeting: CM met with patient and rehab team Intervention/Goal/Outcome:: 1. Goal: 24 hour hands on assist at home. 2. Plan: [facility] as patient is now NWB LLE with trouble adhering to weight bearing precautions, patient will benefit from continued inpatient rehab, CM discussed concerns and recommendations with slime Nelson, patient verbalized understanding and in agreement with recommendations, CM emailed son list of local [facility]. CM to continue following to arrange for discharge. 3. continued emotional support. 4. tentative discharge date: 11/25/2017. 5. continued stay review, LAD: 11/19/2017 - Discharge Plan Discharge Plan: Subacute care - Provider Provider: YANIRA Segovia, [employer] License Number: [id number] Rehabilitation Plan - Treatment Plan Treatment Plan: Physical Therapy, Occupational Therapy, Speech, Dietary, Patient /Family Education - Recommendation Recommendation: Physical Therapy, Occupational Therapy, Speech, Dietary, Patient /Family Education - Discharge Plan Discharge to: Subacute (DC 19)
[2017-11-23] MEDS: Alum-Mag Hydrox-Simethicone Susp (30 mL) PO PRN (12:09)
--- NOTE | 2017-11-23 13:21 | CP.PCM.PN ---
Subjective - Date & Time of Evaluation Date of Evaluation: 11/23/17 Time of Evaluation: 08:00 - Subjective Subjective: no acute complaints at present Objective - Vital Signs/Intake and Output Vital Signs (last 24 hours): Temp Pulse Resp BP Pulse Ox 98.0 F 74 19 133/70 96 11/23/17 08:41 11/23/17 08:41 11/23/17 08:41 11/23/17 08:41 11/23/17 08:41 - Medications Medications: Current Medications Acetaminophen (Tylenol 325mg Tab) 650 mg PO Q4 PRN PRN Reason: Pain, moderate (4-7) Last Admin: 11/18/17 18:42 Dose: 650 mg Al Hydrox/Mg Hydrox/Simethicone (Maalox Plus 30 Ml) 30 ml PO Q4 PRN PRN Reason: .Abdominal pain Last Admin: 11/23/17 12:09 Dose: 30 ml Aspirin (Ecotrin) 81 mg PO DAILY [facility] Last Admin: 11/23/17 08:18 Dose: 81 mg Atorvastatin Calcium (Lipitor) 20 mg PO HS [facility] Last Admin: 11/22/17 21:34 Dose: 20 mg Clopidogrel Bisulfate (Plavix) 75 mg PO DAILY [facility] Last Admin: 11/23/17 08:19 Dose: 75 mg Enoxaparin Sodium (Lovenox) 40 mg SC DAILY [facility] PRN Reason: Protocol Last Admin: 11/23/17 08:19 Dose: 40 mg Ibuprofen (Motrin Tab) 600 mg PO Q6 PRN PRN Reason: Pain, Mild (1-3) Metoprolol Tartrate (Lopressor) 25 mg PO Q12 [facility] Last Admin: 11/23/17 08:18 Dose: 25 mg Pantoprazole Sodium (Protonix Ec Tab) 40 mg PO DAILY [facility] Last Admin: 11/23/17 08:18 Dose: 40 mg Tramadol HCl (Ultram) 50 mg PO Q6H PRN PRN Reason: Pain, severe (8-10) Last Admin: 11/23/17 10:48 Dose: 50 mg - Labs Labs: 11/22/17 06:00 11/22/17 06:00 - Head Exam Head Exam: ATRAUMATIC, NORMAL INSPECTION, NORMOCEPHALIC - Eye Exam Eye Exam: EOMI, Normal appearance, PERRL Pupil Exam: NORMAL ACCOMODATION - ENT Exam ENT Exam: Mucous Membranes Moist, Normal Exam - Neck Exam Neck Exam: Normal Inspection - Respiratory Exam Respiratory Exam: NORMAL BREATHING PATTERN - Cardiovascular Exam Cardiovascular Exam: REGULAR RHYTHM - GI/Abdominal Exam GI & Abdominal Exam: Soft, Normal Bowel Sounds - Rectal Exam Rectal Exam: NORMAL INSPECTION - Exam External exam: NORMAL EXTERNAL EXAM - Extremities Exam Extremities Exam: Full ROM, Normal Capillary Refill, Normal Inspection - Back Exam Back Exam: NORMAL INSPECTION - Neurological Exam Neurological Exam: Alert, Awake Neuro motor strength exam: Left Upper Extremity: 3, Right Upper Extremity: 3, Left Lower Extremity: 2/1, Right Lower Extremity: 3 - Psychiatric Exam Psychiatric exam: Normal Affect, Normal Mood - Skin Skin Exam: Dry, Intact Assessment and Plan (1) CVA (cerebral vascular accident) Assessment & Plan: pt, ot therapy stauts post team conference Dc 19 Status: Acute (2) Syncope Status: Acute
--- NOTE | 2017-11-23 13:31 | CP.PCM.PN ---
Subjective - Date & Time of Evaluation Date of Evaluation: 11/23/17 Time of Evaluation: 11:20 - Subjective Subjective: Pt seen and examined. Claimed she was feeling much better. Denied any complaint. Objective - Vital Signs/Intake and Output Vital Signs (last 24 hours): Temp Pulse Resp BP Pulse Ox 98.0 F 74 19 133/70 96 11/23/17 08:41 11/23/17 08:41 11/23/17 08:41 11/23/17 08:41 11/23/17 08:41 - Medications Medications: Current Medications Acetaminophen (Tylenol 325mg Tab) 650 mg PO Q4 PRN PRN Reason: Pain, moderate (4-7) Last Admin: 11/18/17 18:42 Dose: 650 mg Al Hydrox/Mg Hydrox/Simethicone (Maalox Plus 30 Ml) 30 ml PO Q4 PRN PRN Reason: .Abdominal pain Last Admin: 11/23/17 12:09 Dose: 30 ml Aspirin (Ecotrin) 81 mg PO DAILY [facility] Last Admin: 11/23/17 08:18 Dose: 81 mg Atorvastatin Calcium (Lipitor) 20 mg PO HS [facility] Last Admin: 11/22/17 21:34 Dose: 20 mg Clopidogrel Bisulfate (Plavix) 75 mg PO DAILY [facility] Last Admin: 11/23/17 08:19 Dose: 75 mg Enoxaparin Sodium (Lovenox) 40 mg SC DAILY [facility] PRN Reason: Protocol Last Admin: 11/23/17 08:19 Dose: 40 mg Ibuprofen (Motrin Tab) 600 mg PO Q6 PRN PRN Reason: Pain, Mild (1-3) Metoprolol Tartrate (Lopressor) 25 mg PO Q12 [facility] Last Admin: 11/23/17 08:18 Dose: 25 mg Pantoprazole Sodium (Protonix Ec Tab) 40 mg PO DAILY [facility] Last Admin: 11/23/17 08:18 Dose: 40 mg Tramadol HCl (Ultram) 50 mg PO Q6H PRN PRN Reason: Pain, severe (8-10) Last Admin: 11/23/17 10:48 Dose: 50 mg - Labs Labs: 11/22/17 06:00 11/22/17 06:00 - Constitutional Appears: No Acute Distress - Head Exam Head Exam: ATRAUMATIC - Eye Exam Eye Exam: absent: Scleral icterus - ENT Exam ENT Exam: Mucous Membranes Moist - Neck Exam Neck Exam: absent: Meningismus - Respiratory Exam Respiratory Exam: absent: Rhonchi, Wheezes, Respiratory Distress - Cardiovascular Exam Cardiovascular Exam: REGULAR RHYTHM, +S1, +S2 - GI/Abdominal Exam GI & Abdominal Exam: Soft. absent: Tenderness - Rectal Exam Rectal Exam: Deferred - Extremities Exam Extremities Exam: absent: Normal Inspection (left leg in cast) - Back Exam Back Exam: absent: tenderness - Neurological Exam Neurological Exam: Alert, Oriented x3 - Psychiatric Exam Psychiatric exam: Normal Affect - Skin Skin Exam: Dry, Intact Assessment and Plan - Assessment and Plan (Free Text) Assessment: 67 yo female with history of Myasthenia Gravis, Non-Hodgkins Lymphoma admitted on 11/03/17 after mechanical falls. She was diagnosed with CVA after CT of the head showed possible evolving ischemia and MRI showed completed right basal ganglia infarct. She was discharged to TCU initially for PT, then transferred to Acute Rehab for further therapy. Patient's son Omar could be reached at [phone] 1. CVA continue ASA, Plavix and statin continue PT/OT 2. Myasthenia Gravis continue PT 3. Left Distal Fibular Fracture maintain BK cast on left leg non-weight bearing on left leg podiatry consult with Dr Lane 4. DVT prophylaxis continue Lovenox
[2017-11-24] MEDS: Pantoprazole 40 mg EC Tab PO SCH (09:57)
[2017-11-24] MEDS: Enoxaparin 40 mg Syringe SC SCH (09:57)
[2017-11-24 22:52] VITALS: O2SAT 97
[2017-11-25 07:42] LABS: HEMOGLOBIN 13.6 g/dL (12.0-16.0); MEAN CELL VOLUME 73.1 fl (81.0-99.0); MEAN CORPUSCULAR HEMOGLOBIN 23.8 pg (27.0-31.0); MEAN CORPUSCULAR HGB CONC 32.6 g/dL (33.0-37.0); RBC 5.72 Mil/uL (3.80-5.20); RED CELL DISTRIBUTION WIDTH 20.6 % (11.5-14.5)
[2017-11-25 08:00] LABS: ALB/GLOB RATIO 0.9 (1.0-2.1); ALBUMIN 3.7 g/dL (3.5-5.0); ALT/SGPT 38 U/L (9-52); AST/SGOT 39 U/L (14-36); BLOOD UREA NITROGEN 24 mg/dl (7-17); CALCIUM 10.5 mg/dL (8.4-10.2); GFR AFRICAN-AMERICAN > 60; GFR NON-AFRICAN AMERICAN > 60
[2017-11-25 08:02] VITALS: BP 129/60; PULSE 52; RESP 18; TEMP 96.3
[2017-11-25] MEDS: Enoxaparin 40 mg Syringe SC SCH (08:53)
[2017-11-25] MEDS: Pantoprazole 40 mg EC Tab PO SCH (08:53)
--- NOTE | 2017-11-25 11:16 | RAD ---
PROCEDURE: Left Ankle Radiographs. HISTORY: left ankle fracture COMPARISON: 11/18/2017 FINDINGS: BONES: Bony detail obscured by overlying fiberglass cast. Status post close reduction oblique distal fibular fracture. No other fracture identified. JOINTS: Normal. No osteoarthritis. Ankle mortise maintained. Talar dome intact SOFT TISSUES: Normal. OTHER FINDINGS: None. IMPRESSION: Close reduction oblique distal fibular fracture.
--- NOTE | 2017-11-25 11:41 | CP.PCM.PN ---
Subjective - Date & Time of Evaluation Date of Evaluation: 11/25/17 Time of Evaluation: 11:39 - Subjective Subjective: Ms. Castillo was seen and examined at the bedside. She is alert, oriented. She denies any headache, blurred vision, dizziness, lightheadedness, nausea, or vomiting. She is able to answer questions and follow simple commands such as field accommodation, finger to nose, strength test. She has a left leg cast, + CMS, There was no untoward events overnight. Objective - Vital Signs/Intake and Output Vital Signs (last 24 hours): Temp Pulse Resp BP Pulse Ox 96.3 F L 52 L 18 129/60 97 11/25/17 08:01 11/25/17 08:53 11/25/17 08:01 11/25/17 08:53 11/25/17 08:01 - Medications Medications: Current Medications Acetaminophen (Tylenol 325mg Tab) 650 mg PO Q4 PRN PRN Reason: Pain, moderate (4-7) Last Admin: 11/18/17 18:42 Dose: 650 mg Al Hydrox/Mg Hydrox/Simethicone (Maalox Plus 30 Ml) 30 ml PO Q4 PRN PRN Reason: .Abdominal pain Last Admin: 11/23/17 12:09 Dose: 30 ml Aspirin (Ecotrin) 81 mg PO DAILY [facility] Last Admin: 11/25/17 08:54 Dose: 81 mg Atorvastatin Calcium (Lipitor) 20 mg PO HS [facility] Last Admin: 11/24/17 21:18 Dose: 20 mg Clopidogrel Bisulfate (Plavix) 75 mg PO DAILY [facility] Last Admin: 11/25/17 08:53 Dose: 75 mg Enoxaparin Sodium (Lovenox) 40 mg SC DAILY [facility] PRN Reason: Protocol Last Admin: 11/25/17 08:53 Dose: 40 mg Ibuprofen (Motrin Tab) 600 mg PO Q6 PRN PRN Reason: Pain, Mild (1-3) Metoprolol Tartrate (Lopressor) 25 mg PO Q12 [facility] Last Admin: 11/25/17 08:53 Dose: Not Given Pantoprazole Sodium (Protonix Ec Tab) 40 mg PO DAILY [facility] Last Admin: 11/25/17 08:53 Dose: 40 mg Tramadol HCl (Ultram) 50 mg PO Q6H PRN PRN Reason: Pain, severe (8-10) Last Admin: 11/24/17 17:33 Dose: 50 mg - Labs Labs: 11/25/17 06:10 11/25/17 06:10 - Constitutional Appears: No Acute Distress - Head Exam Head Exam: NORMAL INSPECTION - Neurological Exam Neurological Exam: Alert, Awake Neuro motor strength exam: Left Upper Extremity: 5, Right Upper Extremity: 5, Left Lower Extremity: 2/1, Right Lower Extremity: 3 Additional comments: Neurological unchanged from previous examination. Assessment and Plan (1) CVA (cerebral vascular accident) Assessment & Plan: Case discussed with Dr. riggins, continue all current medical, physical, occupational, and speech therapies. There is no new recommendation from neurology. Status: Acute
--- NOTE | 2017-11-25 13:24 | CP.PCM.PN ---
Subjective - Date & Time of Evaluation Date of Evaluation: 11/25/17 Time of Evaluation: 09:30 - Subjective Subjective: no acute complaints at present Objective - Vital Signs/Intake and Output Vital Signs (last 24 hours): Temp Pulse Resp BP Pulse Ox 96.3 F L 52 L 18 129/60 97 11/25/17 08:01 11/25/17 08:53 11/25/17 08:01 11/25/17 08:53 11/25/17 08:01 - Medications Medications: Current Medications Acetaminophen (Tylenol 325mg Tab) 650 mg PO Q4 PRN PRN Reason: Pain, moderate (4-7) Last Admin: 11/18/17 18:42 Dose: 650 mg Al Hydrox/Mg Hydrox/Simethicone (Maalox Plus 30 Ml) 30 ml PO Q4 PRN PRN Reason: .Abdominal pain Last Admin: 11/23/17 12:09 Dose: 30 ml Aspirin (Ecotrin) 81 mg PO DAILY [facility] Last Admin: 11/25/17 08:54 Dose: 81 mg Atorvastatin Calcium (Lipitor) 20 mg PO HS [facility] Last Admin: 11/24/17 21:18 Dose: 20 mg Clopidogrel Bisulfate (Plavix) 75 mg PO DAILY [facility] Last Admin: 11/25/17 08:53 Dose: 75 mg Enoxaparin Sodium (Lovenox) 40 mg SC DAILY [facility] PRN Reason: Protocol Last Admin: 11/25/17 08:53 Dose: 40 mg Ibuprofen (Motrin Tab) 600 mg PO Q6 PRN PRN Reason: Pain, Mild (1-3) Metoprolol Tartrate (Lopressor) 25 mg PO Q12 [facility] Last Admin: 11/25/17 08:53 Dose: Not Given Pantoprazole Sodium (Protonix Ec Tab) 40 mg PO DAILY [facility] Last Admin: 11/25/17 08:53 Dose: 40 mg Tramadol HCl (Ultram) 50 mg PO Q6H PRN PRN Reason: Pain, severe (8-10) Last Admin: 11/24/17 17:33 Dose: 50 mg - Labs Labs: 11/25/17 06:10 11/25/17 06:10 - Head Exam Head Exam: ATRAUMATIC, NORMAL INSPECTION, NORMOCEPHALIC - Eye Exam Eye Exam: EOMI, Normal appearance, PERRL Pupil Exam: NORMAL ACCOMODATION - ENT Exam ENT Exam: Mucous Membranes Moist, Normal Exam - Neck Exam Neck Exam: Normal Inspection - Respiratory Exam Respiratory Exam: NORMAL BREATHING PATTERN - Cardiovascular Exam Cardiovascular Exam: REGULAR RHYTHM - GI/Abdominal Exam GI & Abdominal Exam: Soft, Normal Bowel Sounds - Rectal Exam Rectal Exam: NORMAL INSPECTION - Exam External exam: NORMAL EXTERNAL EXAM - Extremities Exam Extremities Exam: Full ROM, Normal Capillary Refill - Neurological Exam Neurological Exam: Alert, Awake Neuro motor strength exam: Left Upper Extremity: 3, Right Upper Extremity: 3, Left Lower Extremity: 2/1, Right Lower Extremity: 3 - Psychiatric Exam Psychiatric exam: Normal Affect, Normal Mood - Skin Skin Exam: Dry, Intact Assessment and Plan (1) CVA (cerebral vascular accident) Assessment & Plan: plan for Pt, Ot therapy left leg cast in place Status: Acute (2) Syncope Status: Acute
--- NOTE | 2017-11-25 16:10 | CP.PCM.DIS ---
Provider - Provider Date of Admission: 11/09/17 18:16 Attending physician: Gabe Santos MD Primary care physician: Sammy Suarez Consults: Ayan Bowens- neurology Dr. Rondon-Priscilla- Physiatry Dr. Lane- Podiatry Time Spent in preparation of Discharge (in minutes): 25 Hospital Course - Lab Results Lab Results: Most Recent Lab Values WBC 5.0 K/uL (4.8-10.8) 11/25/17 06:10 RBC 5.72 Mil/uL (3.80-5.20) H 11/25/17 06:10 Hgb 13.6 g/dL (12.0-16.0) 11/25/17 06:10 Hct 41.8 % (34.0-47.0) 11/25/17 06:10 MCV 73.1 fl (81.0-99.0) L 11/25/17 06:10 MCH 23.8 pg (27.0-31.0) L 11/25/17 06:10 MCHC 32.6 g/dL (33.0-37.0) L 11/25/17 06:10 RDW 20.6 % (11.5-14.5) H 11/25/17 06:10 Plt Count 236 K/uL (130-400) 11/25/17 06:10 Sodium 143 mmol/l (132-148) 11/25/17 06:10 Potassium 4.2 MMOL/L (3.6-5.0) 11/25/17 06:10 Chloride 104 mmol/L (98-107) 11/25/17 06:10 Carbon Dioxide 30 mmol/L (22-30) 11/25/17 06:10 Anion Gap 13 (10-20) 11/25/17 06:10 BUN 24 mg/dl (7-17) H 11/25/17 06:10 Creatinine 0.7 mg/dl (0.7-1.2) 11/25/17 06:10 Est GFR ( Amer) > 60 11/25/17 06:10 Est GFR (Non-Af Amer) > 60 11/25/17 06:10 Random Glucose 106 mg/dL (65-105) H 11/25/17 06:10 Calcium 10.5 mg/dL (8.4-10.2) H 11/25/17 06:10 Total Bilirubin 0.7 mg/dl (0.2-1.3) 11/25/17 06:10 AST 39 U/L (14-36) H 11/25/17 06:10 ALT 38 U/L (9-52) 11/25/17 06:10 Alkaline Phosphatase 73 U/L (38-126) 11/25/17 06:10 Total Protein 7.9 G/DL (6.3-8.2) 11/25/17 06:10 Albumin 3.7 g/dL (3.5-5.0) 11/25/17 06:10 Globulin 4.2 gm/dL (2.2-3.9) H 11/25/17 06:10 Albumin/Globulin Ratio 0.9 (1.0-2.1) L 11/25/17 06:10 - Hospital Course Hospital Course: 67 year old female PMH Myasthenia Gravis, Non Hodgkins Lymphoma s/p chemo, hx of URI for one week (neg CXR), presents to the ER on 11/03/2017 after 2 mechanical falls, each time after attempting to open her cat food. The first episode 911 was called however she refused care, the second time she fell, neighbors responded. Patient states she did not lose consciousness prior to falling, and complains of some acute moderate sharp/aching pain in her knee and ankle. XR/CT imaging in ER was initially read as negative. In ER pt found to have WBC 13k, UA- some hyaline casts but no evidence of UTI. UCx pending. CT head showed possible evolving ischemia and MRI was completed, showing right basal ganglia infarct. Patient did not exhibit any bulbar weakness, or respiratory symptoms/difficulty. No focal neuro deficits, AAOx3. Mild Azotemia. Neuro consulted, Dr. Hogan. HD stable. The patient was observed overnight on telemetry without changes. On 11/04, MRI demonstrated basal ganglia acute/subacute infarct. Pt seen by PT and recommends physical therapy. The patient was discharged to TCU for further PT/OT and for further workup by Dr. Hogan, neurology in stable condition. On 11/09/2017, after an uncomplicated stay in TCU, the patient was discharged to acute rehabilitation for further physical therapy and occupational therapy. She completed her course of abx for UTI. She was complaining of occasional pain in her hips bilaterally and neck pain but it is controlled with Motrin. She was also complaining of worsening left ankle pain especially with difficulty bearing weight on the left ankle. A follow up X ray of the left ankle was then performed which showed a left distal fibular fracture, nondislocated with mild posterior displacement noted. The patient had no falls during her stay in acute rehab or TCU. Dr. Lane, podiatry, was consulted, and posterior splint on 2017 and then BK cast was applied for added stability and patient comfort. The patient continued to undergo PT/OT without further complication and her pain lessened greatly with the therapies. Today she is being discharged to [facility] for further therapy and management. She has no c/o today. 1. CVA continue ASA, Plavix and statin continue PT/OT 2. Myasthenia Gravis continue PT 3. Left Distal Fibular Fracture Ultram PRN maintain BK cast on left leg non-weight bearing on left leg podiatry consult with Dr Lane, will continue to see in [facility]. 4. DVT prophylaxis continue Lovenox Discharge Exam - Additional Findings Additional findings: Physical exam: Constitutional- cooperative, awake, alert Head- NCAT, PERRL Eye- PERRL, EOMI ENT- normal exam, MMM. Neck- normal inspection, supple, no JVD Respiratory- CTAB, no wheezes rales rhonchi Cardiovascular- RRR, +S1, +S2 no MRG GI/Abdominal- normal bowel sounds, soft, no mass, no hsm Skin- warm, dry Extremities Exam- normal capillary refill, + Left lower extremity cast Neurological Exam- alert, awake, oriented Psych- normal mood, normal affect Discharge Plan - Discharge Medications Prescriptions: Aspirin [Ecotrin] 81 mg PO DAILY #30 tabec Atorvastatin [Lipitor] 20 mg PO HS #30 tab Clopidogrel [Plavix] 75 mg PO DAILY #30 tab Metoprolol Tartrate [Lopressor] 25 mg PO Q12 #60 tab Pantoprazole [Protonix EC Tab] 40 mg PO DAILY #30 ect traMADol [Ultram] 50 mg PO Q4 PRN #25 tab PRN Reason: Pain 4-10 - Follow Up Plan Condition: GOOD Disposition: HOME/ ROUTINE Instructions: Ankle Fracture (DC), Syncope (DC), Syncope (GEN), Stroke (DC)
== END 2017-11-25 13:15 | DRG 560 ==
PROVIDERS: ADMIT Internal Medicine; ATTEND Internal Medicine
PROC: F08Z1FZ Dressing Techniques Treatment using Assistive, Adaptive, Supportive or Protective Equipment (ICD-10-PCS; principal; 2017-11-09)
PROC: F06Z6ZZ Communicative/Cognitive Integration Skills Treatment (ICD-10-PCS; 2017-11-09)
PROC: F07Z9FZ Gait Training/Functional Ambulation Treatment using Assistive, Adaptive, Supportive or Protective Equipment (ICD-10-PCS; 2017-11-09)
PROC: F07L6FZ Therapeutic Exercise Treatment of Musculoskeletal System - Lower Back / Lower Extremity using Assistive, Adaptive, Supportive or Protective Equipment (ICD-10-PCS; 2017-11-09)
PROC: F07Z4FZ Wheelchair Mobility Treatment using Assistive, Adaptive, Supportive or Protective Equipment (ICD-10-PCS; 2017-11-09)
DX: S82.62XD Displaced fracture of lateral malleolus of left fibula, subsequent encounter for closed fracture with routine healing (principal); N39.0 Urinary tract infection, site not specified; G70.00 Myasthenia gravis without (acute) exacerbation; Z88.0 Allergy status to penicillin; Z87.891 Personal history of nicotine dependence; R79.89 Other specified abnormal findings of blood chemistry; Z85.72 Personal history of non-Hodgkin lymphomas; Z92.21 Personal history of antineoplastic chemotherapy; Z86.73 Personal history of transient ischemic attack (TIA), and cerebral infarction without residual deficits